=== PATIENT | male | born 1970 | race Two or more races ===

== ENCOUNTER 2016-09-05 13:36 | Emergency (ER) | payer MEDICAID ==
[~2016-09-05] VITALS: Ht 185.4 cm; Wt 120.2 kg
[~2016-09-05 13:36] MED LIST: APIX5TAB; GEMF600T3; INSLANTI; LISI10TA6
[2016-09-05 14:29] LABS: Basophils # (auto) 0 uL; Basophils % (auto) 0.5 % (0.0-2.0); Eosinophils # (auto) 0.1 uL; Eosinophils % (auto) 1.7 % (0.0-7.0); Hematocrit 43.6 % (41.0-53.0); Hemoglobin 14.7 g/dL (13.5-17.5); Lymphocytes # (auto) 1.2 uL; Lymphocytes % (auto) 27.3 % (10.0-50.0); Mean Corpuscular Hemoglobin 30.7 pg (28.0-32.0); Mean Corpuscular Hgb Conc. 33.7 g/dL (32.0-36.0); Mean Corpuscular Volume 91.3 fL (80.0-100.0); Mean Platelet Volume 8.2 fL (7.4-10.4); Monocytes # (auto) 0.3 uL; Monocytes % (auto) 6.9 % (0.0-12.0); Neutrophils # (auto) 2.8 uL; Neutrophils % (auto) 63.6 % (37.0-80.0); Platelet Count (auto) 233 10^3/uL (140-450); White Blood Cell 4.5 10^3/uL (4.4-10.8)
[2016-09-05] MEDS ORDERED: SODIUM CHLORIDE 0.9% 1,000 ML IV ONE (15:11)
[2016-09-05] MEDS ORDERED: SODIUM CHLORIDE 0.9% 1,000 ML IV STA (15:11)
[2016-09-05 15:29] LABS: Potassium 3.7 mmol/L (3.5-5.1)
[2016-09-05 15:30] LABS: Albumin 3.5 g/dL (3.4-5.0); BUN/Creatinine Ratio 10.6; Bilirubin, Total 0.2 mg/dL (0.2-1.0); Calcium 9.1 mg/dL (8.5-10.1); Total Protein 7.3 g/dL (6.4-8.2)
[2016-09-05] MEDS ORDERED: IOHEXOL 350 MG/ML 100ML IJ ONE (15:37)
[2016-09-05 16:12] LABS: Partial Thromboplastin Time 25.2 sec (22.64-33.71); Prothrombin Time 9.6 sec (9.37-12.3)
[2016-09-05 16:24] LABS: INR 0.89 (0.9-1.15)
[2016-09-05 17:17] VITALS: BP 128/70
== END 2016-09-05 17:17 | disposition home or self-care (01) ==
LOC: ER 13:36
DX: I83.92 Asymptomatic varicose veins of left lower extremity (principal); E11.9 Type 2 diabetes mellitus without complications; E78.5 Hyperlipidemia, unspecified; I10 Essential (primary) hypertension; F17.210 Nicotine dependence, cigarettes, uncomplicated; F12.10 Cannabis abuse, uncomplicated; Z88.6 Allergy status to analgesic agent
CPT/HCPCS: 36415; 71275; 80053; 84484; 85025; 85610; 85730; 93971; 96360; 96361; 99285; Q9967

== ENCOUNTER 2016-09-17 13:43 | Emergency (ER) | payer MEDICAID | END 2016-09-17 14:20 | disposition left against medical advice (07) | LOC: ER 13:43 | DX: S90.852A Superficial foreign body, left foot, initial encounter (principal); Z53.21 Procedure and treatment not carried out due to patient leaving prior to being seen by health care provider; W45.8XXA Other foreign body or object entering through skin, initial encounter; Y93.89 Activity, other specified; Y99.8 Other external cause status; Y92.89 Other specified places as the place of occurrence of the external cause ==

== ENCOUNTER 2016-10-20 08:32 | Emergency (ER) | payer MEDICAID ==
[~2016-10-20] VITALS: Ht 188 cm; Wt 120.2 kg
[2016-10-20 09:14] VITALS: BP 135/95
== END 2016-10-20 09:27 | disposition home or self-care (01) ==
LOC: ER 08:32
DX: F41.9 Anxiety disorder, unspecified (principal); J01.10 Acute frontal sinusitis, unspecified; E11.9 Type 2 diabetes mellitus without complications; I10 Essential (primary) hypertension; I82.509 Chronic embolism and thrombosis of unspecified deep veins of unspecified lower extremity; E78.5 Hyperlipidemia, unspecified; F17.210 Nicotine dependence, cigarettes, uncomplicated; F12.10 Cannabis abuse, uncomplicated; Z88.6 Allergy status to analgesic agent; Z79.01 Long term (current) use of anticoagulants; Z79.4 Long term (current) use of insulin

== ENCOUNTER 2017-05-08 11:21 | Emergency (ER) | payer MEDICAID ==
[~2017-05-08] VITALS: Ht 188 cm; Wt 124.7 kg
[2017-05-08 12:00] VITALS: BP 139/95
[2017-05-08 15:04] LABS: Basophils # (auto) 0 uL; Basophils % (auto) 0.6 % (0.0-2.0); Eosinophils # (auto) 0 uL; Hemoglobin 15.1 g/dL (13.5-17.5); Lymphocytes # (auto) 0.6 uL; Lymphocytes % (auto) 11.9 % (10.0-50.0); Mean Corpuscular Hemoglobin 31.4 pg (28.0-32.0); Mean Corpuscular Hgb Conc. 34.3 g/dL (32.0-36.0); Mean Corpuscular Volume 91.6 fL (80.0-100.0); Monocytes # (auto) 0.5 uL; Monocytes % (auto) 9.1 % (0.0-12.0); Neutrophils % (auto) 78.4 % (37.0-80.0); Nucleated Red Blood Cells % 0.4 %; Platelet Count (auto) 159 10^3/uL (140-450); Red Cell Distribution Width 13.2 % (11.8-14.3); White Blood Cell 5.1 10^3/uL (4.4-10.8)
[2017-05-08 15:27] LABS: Alanine Aminotransferase 79 U/L (16-61); Albumin 3.9 g/dL (3.4-5.0); Alkaline Phosphatase 71 U/L (45-117); Anion Gap 11 (5-15); Aspartate Aminotransferase 56 U/L (15-37); BUN/Creatinine Ratio 8.7; Bilirubin, Total 0.4 mg/dL (0.2-1.0); Blood Urea Nitrogen 11 mg/dL (7-18); Calcium 8.5 mg/dL (8.5-10.1); Carbon Dioxide 23 mmol/L (21-32); Chloride 98 mmol/L (98-107); GFR African American 80 mL/min; GFR Non-African American 66 mL/min; Glucose 329 mg/dL (74-106); Potassium 3.8 mmol/L (3.5-5.1); Sodium 132 mmol/L (136-145); Total Protein 8.3 g/dL (6.4-8.2)
== END 2017-05-08 18:22 | disposition left against medical advice (07) ==
LOC: ER 11:21 → EDBD 11:21 → ER 18:22
DX: R11.2 Nausea with vomiting, unspecified (principal); R19.7 Diarrhea, unspecified; Z53.21 Procedure and treatment not carried out due to patient leaving prior to being seen by health care provider
CPT/HCPCS: 36415; 71045; 80053; 84484; 85025; 93005

== ENCOUNTER 2017-12-28 06:54 | Inpatient (IN) | payer MEDICAID ==
[~2017-12-28] VITALS: Ht 167.6 cm; Wt 137.0 kg
[2017-12-28 08:01] LABS: Basophils # (auto) 0 uL; Basophils % (auto) 0.6 % (0.0-2.0); Eosinophils # (auto) 0 uL; Eosinophils % (auto) 0.8 % (0.0-7.0); Hematocrit 44.3 % (41.0-53.0); Hemoglobin 15.4 g/dL (13.5-17.5); Lymphocytes # (auto) 1.1 uL; Lymphocytes % (auto) 21.5 % (10.0-50.0); Mean Corpuscular Hemoglobin 31.6 pg (28.0-32.0); Mean Corpuscular Hgb Conc. 34.8 g/dL (32.0-36.0); Mean Corpuscular Volume 90.9 fL (80.0-100.0); Monocytes # (auto) 0.3 uL; Monocytes % (auto) 5.8 % (0.0-12.0); Neutrophils # (auto) 3.7 uL; Neutrophils % (auto) 71.3 % (37.0-80.0); Nucleated Red Blood Cells % 0.2 %; Platelet Count (auto) 209 10^3/uL (140-450); Red Blood Cells 4.87 10^6/uL (4.5-5.90); Red Cell Distribution Width 12.8 % (11.8-14.3); White Blood Cell 5.2 10^3/uL (4.4-10.8)
[2017-12-28 08:10] LABS: Urine Bacteria NONE SEEN /hpf (None Seen); Urine Blood Negative /uL (Negative); Urine Specific Gravity 1.023 (1.001-1.035); Urine WBC <1 /hpf (0 - 3)
[2017-12-28 08:17] LABS: Alanine Aminotransferase 57 U/L (16-61); Albumin 3.9 g/dL (3.4-5.0); Aspartate Aminotransferase 23 U/L (15-37); BUN/Creatinine Ratio 18.3; Blood Urea Nitrogen 19 mg/dL (7-18); Calcium 9.1 mg/dL (8.5-10.1); Carbon Dioxide 26 mmol/L (21-32); GFR African American 99 mL/min; GFR Non-African American 82 mL/min; Glucose 176 mg/dL (74-106); INR 1.04 (0.9-1.15); Partial Thromboplastin Time 38.3 sec (23.78-33.04); Prothrombin Time 11.1 sec (9.27-12.13)
[2017-12-28] MEDS ORDERED: IOHEXOL 350 MG/ML 100ML IJ ONE (08:19)
[2017-12-28 08:47] LABS: Alkaline Phosphatase 64 U/L (45-117); Anion Gap 10 (5-15); Bilirubin, Total 0.6 mg/dL (0.2-1.0); Chloride 103 mmol/L (98-107); Potassium 4.1 mmol/L (3.5-5.1); Sodium 139 mmol/L (136-145); Total Protein 8.4 g/dL (6.4-8.2)
[2017-12-28] MEDS ORDERED: AZITHROMYCIN 500MG/ 250ML 250 ML IV ONE (09:45)
[2017-12-28] MEDS ORDERED: cefTRIAXone 1GM/10ml IVPUSH 10 ML IV ONE (09:45)
[2017-12-28] MEDS ORDERED: ALBUTEROL SULF 2.5 MG/0.5ML(0.5%) NEB SOLN NEB PRN (10:00)
[2017-12-28] MEDS ORDERED: DEXTROSE (50%) 50ML SYRG IV PRN (10:00)
[2017-12-28] MEDS ORDERED: PROMETHAZINE HCL 25 MG/ML 1ML IV PRN (10:00)
[2017-12-28] MEDS ORDERED: TEMAZEPAM 15 MG CAP PO PRN (10:00)
[2017-12-28] MEDS ORDERED: HYDROcodone-ACET 5/325MG TAB PO PRN (10:00)
[2017-12-28] MEDS ORDERED: NITROGLYCERIN 0.4 MG SL TAB SL PRN (10:00)
[2017-12-28] MEDS ORDERED: APIXABAN 5 MG TAB PO SCH (10:00)
[2017-12-28] MEDS ORDERED: LORazepam 0.5 MG TAB PO PRN (10:00)
[2017-12-28] MEDS ORDERED: ACETAMINOPHEN 500 MG TAB PO PRN (10:00)
[2017-12-28] MEDS ORDERED: INSUINJ18 SC ×2 (10:49→10:54)
[2017-12-28] MEDS ORDERED: LISI2.5T47 PO (10:49)
[2017-12-28] MEDS ORDERED: INSLANTI SC (10:54)
[2017-12-28] MEDS ORDERED: OXYC-113 PO ×2 (10:54→10:55)
[2017-12-28] MEDS: SODIUM CHLORIDE 0.9% 1,000 ML IV SCH (11:03)
[2017-12-28] MEDS: ACCU-CHEK COMFORT CURVE STRIP VI SCH ×3 (11:19→21:54)
[2017-12-28] MEDS: LISINOPRIL 10 MG TAB PO SCH (11:29)
[2017-12-28] MEDS: InsuLIN REG 1unit/0.01ml Soln (100units/ml) SC SCH ×3 (11:29→22:03)
[2017-12-28] MEDS: PANTOPRAZOLE 40 MG TAB PO SCH (11:30)
[2017-12-28] MEDS: INSULIN LANTUS (GLARGINE) 1 /0.01ml (100units/ml) SC SCH ×2 (11:30→22:03)
[2017-12-28] MEDS: GEMFIBROZIL 600 MG TAB PO SCH ×2 (11:33→21:32)
[2017-12-28] MEDS: OXYCODONE W/ ACETAMINOPHEN 5/325MG TABLET PO PRN ×2 (12:18→20:18)
[2017-12-28] MEDS: ALBUTEROL SULF 2.5 MG/0.5ML(0.5%) NEB SOLN NEB SCH ×2 (12:20→19:03)
[2017-12-28] MEDS: IPRATROPIUM BROM 0.5 MG/2.5ML INH SOL NEB SCH ×2 (12:20→19:03)
[2017-12-28 12:40] VITALS: BP 135/86
[2017-12-28 14:38] VITALS: BP 136/99
[2017-12-28 17:00] VITALS: BP 115/69
[2017-12-28] MEDS: RIVAROXABAN 20 MG TAB PO SCH (17:10)
[2017-12-28 21:48] VITALS: BP 105/59
[2017-12-29] MEDS: SODIUM CHLORIDE 0.9% 1,000 ML IV SCH ×3 (00:06→15:30)
[2017-12-29] MEDS: ALBUTEROL SULF 2.5 MG/0.5ML(0.5%) NEB SOLN NEB SCH ×4 (00:27→19:56)
[2017-12-29] MEDS: IPRATROPIUM BROM 0.5 MG/2.5ML INH SOL NEB SCH ×4 (00:27→19:56)
[2017-12-29 04:52] VITALS: BP 117/76
[2017-12-29] MEDS: OXYCODONE W/ ACETAMINOPHEN 5/325MG TABLET PO PRN ×3 (06:05→22:14)
[2017-12-29] MEDS: ACCU-CHEK COMFORT CURVE STRIP VI SCH ×4 (06:14→22:07)
[2017-12-29] MEDS: InsuLIN REG 1unit/0.01ml Soln (100units/ml) SC SCH ×4 (06:14→22:06)
[2017-12-29 08:58] VITALS: BP 133/75
[2017-12-29] MEDS: cefTRIAXone 1GM/10ml IVPUSH 10 ML IV SCH (09:27)
[2017-12-29] MEDS: PANTOPRAZOLE 40 MG TAB PO SCH (09:28)
[2017-12-29] MEDS: AZITHROMYCIN 500MG/ 250ML 250 ML IV SCH (09:28)
[2017-12-29] MEDS: GEMFIBROZIL 600 MG TAB PO SCH ×2 (09:28→22:06)
[2017-12-29] MEDS: LISINOPRIL 10 MG TAB PO SCH (09:29)
[2017-12-29] MEDS: INSULIN LANTUS (GLARGINE) 1 /0.01ml (100units/ml) SC SCH ×2 (09:29→22:06)
[2017-12-29 11:15] LABS: Basophils # (auto) 0 uL; Basophils % (auto) 0.5 % (0.0-2.0); Eosinophils # (auto) 0 uL; Hematocrit 40.8 % (41.0-53.0); Lymphocytes % (auto) 23.5 % (10.0-50.0); Mean Corpuscular Hemoglobin 31.4 pg (28.0-32.0); Mean Corpuscular Hgb Conc. 34.2 g/dL (32.0-36.0); Mean Corpuscular Volume 91.8 fL (80.0-100.0); Monocytes # (auto) 0.3 uL; Monocytes % (auto) 6.9 % (0.0-12.0); Neutrophils % (auto) 68.1 % (37.0-80.0); Nucleated Red Blood Cells % 0.1 %; Platelet Count (auto) 180 10^3/uL (140-450); Red Blood Cells 4.45 10^6/uL (4.5-5.90); Red Cell Distribution Width 12.9 % (11.8-14.3); White Blood Cell 4.5 10^3/uL (4.4-10.8)
[2017-12-29 11:27] LABS: BUN/Creatinine Ratio 19.5; Calcium 8.2 mg/dL (8.5-10.1); Potassium 3.8 mmol/L (3.5-5.1)
[2017-12-29 12:20] VITALS: BP 119/76
[2017-12-29 16:53] VITALS: BP 133/76
[2017-12-29] MEDS: RIVAROXABAN 20 MG TAB PO SCH (17:53)
[2017-12-29 22:00] VITALS: BP 118/79
[2017-12-30] MEDS: ALBUTEROL SULF 2.5 MG/0.5ML(0.5%) NEB SOLN NEB SCH ×3 (00:22→11:42)
[2017-12-30] MEDS: IPRATROPIUM BROM 0.5 MG/2.5ML INH SOL NEB SCH ×3 (00:22→11:41)
[2017-12-30 04:15] LABS: BUN/Creatinine Ratio 16.5; Calcium 8.3 mg/dL (8.5-10.1); Magnesium 2.2 mg/dL (1.6-2.6); Potassium 3.9 mmol/L (3.5-5.1)
[2017-12-30 05:26] VITALS: BP 121/56
[2017-12-30] MEDS: ACCU-CHEK COMFORT CURVE STRIP VI SCH ×3 (07:00→17:46)
[2017-12-30] MEDS: InsuLIN REG 1unit/0.01ml Soln (100units/ml) SC SCH ×3 (07:41→17:47)
[2017-12-30] MEDS: OXYCODONE W/ ACETAMINOPHEN 5/325MG TABLET PO PRN (08:02)
[2017-12-30] MEDS: cefTRIAXone 1GM/10ml IVPUSH 10 ML IV SCH (08:02)
[2017-12-30] MEDS: SODIUM CHLORIDE 0.9% 1,000 ML IV SCH (08:06)
[2017-12-30 09:00] VITALS: BP 144/77
[2017-12-30] MEDS: AZITHROMYCIN 500MG/ 250ML 250 ML IV SCH (10:18)
[2017-12-30] MEDS: PANTOPRAZOLE 40 MG TAB PO SCH (10:19)
[2017-12-30] MEDS: GEMFIBROZIL 600 MG TAB PO SCH (10:19)
[2017-12-30] MEDS: LISINOPRIL 10 MG TAB PO SCH (10:19)
[2017-12-30] MEDS: INSULIN LANTUS (GLARGINE) 1 /0.01ml (100units/ml) SC SCH (10:24)
[2017-12-30 13:00] VITALS: BP 142/63
[2017-12-30 17:00] VITALS: BP 141/98
[2017-12-30] MEDS: RIVAROXABAN 20 MG TAB PO SCH (17:49)
[2017-12-30 17:57] VITALS: BP 141/86
== END 2017-12-30 18:40 | disposition home or self-care (01) | DRG 139 ==
LOC: ER 06:56 → TELE 06:57 → TELE-CENTR 15:05
PROVIDERS: ADMIT Internal Medicine; ATTEND Internal Medicine
DX: J18.9 Pneumonia, unspecified organism (principal); E66.01 Morbid (severe) obesity due to excess calories; K76.0 Fatty (change of) liver, not elsewhere classified; E78.5 Hyperlipidemia, unspecified; F17.210 Nicotine dependence, cigarettes, uncomplicated; G89.4 Chronic pain syndrome; I10 Essential (primary) hypertension; E11.9 Type 2 diabetes mellitus without complications; I83.10 Varicose veins of unspecified lower extremity with inflammation; R16.0 Hepatomegaly, not elsewhere classified; K57.30 Diverticulosis of large intestine without perforation or abscess without bleeding; Z82.49 Family history of ischemic heart disease and other diseases of the circulatory system; Z83.3 Family history of diabetes mellitus; Z86.718 Personal history of other venous thrombosis and embolism; Z88.5 Allergy status to narcotic agent; Z68.42 Body mass index [BMI] 45.0-49.9, adult
CPT/HCPCS: 36415; 71045; 71260; 74177; 80048; 80053; 80061; 81001; 82962; 83036; 83735; 83880; 84484; 85025; 85610; 85730; 87040; 87081; 93005; 93971; 94640; 96365; 96375; J0696; J1815

== ENCOUNTER 2018-06-05 07:11 | Emergency (ER) | payer MEDICAID ==
[~2018-06-05] VITALS: Ht 188 cm; Wt 124.7 kg
[~2018-06-05 07:11] MED LIST changes: -APIX5TAB; -GEMF600T3; +GEMF600T7; +INSLANTI SC
[2018-06-05] MEDS ORDERED: KETOROLAC TROMETH 60MG/2ML VIAL IM ONE (07:45)
[2018-06-05 08:04] VITALS: BP 164/107
[2018-06-05 08:27] LABS: Basophils # (auto) 0 uL; Basophils % (auto) 0.5 % (0.0-2.0); Eosinophils # (auto) 0 uL; Eosinophils % (auto) 0.5 % (0.0-7.0); Hematocrit 48.2 % (41.0-53.0); Hemoglobin 16.6 g/dL (13.5-17.5); Lymphocytes # (auto) 1.1 uL; Lymphocytes % (auto) 20.4 % (10.0-50.0); Mean Corpuscular Hgb Conc. 34.5 g/dL (32.0-36.0); Mean Corpuscular Volume 89.9 fL (80.0-100.0); Monocytes # (auto) 0.4 uL; Monocytes % (auto) 7.1 % (0.0-12.0); Neutrophils # (auto) 3.7 uL; Neutrophils % (auto) 71.5 % (37.0-80.0); Nucleated Red Blood Cells % 0.1 %; Platelet Count (auto) 240 10^3/uL (140-450); Red Blood Cells 5.35 10^6/uL (4.5-5.90); Red Cell Distribution Width 13.3 % (11.8-14.3); White Blood Cell 5.2 10^3/uL (4.4-10.8)
[2018-06-05 08:37] LABS: Amphetamine Screen, Urine POSITIVE (NEGATIVE); Barbiturate Scree,Urine NEGATIVE (NEGATIVE); Benzodiazephine Screen, Urine NEGATIVE (NEGATIVE); Cannabinoid Screen, Urine POSITIVE (NEGATIVE); Cocaine Screen, Urine NEGATIVE (NEGATIVE); Opiate Scree,Urine NEGATIVE (NEGATIVE); Phencyclidine Screen, Urine NEGATIVE (NEGATIVE)
[2018-06-05 08:46] LABS: Albumin 4.5 g/dL (3.4-5.0); Anion Gap 7 (5-15); Blood Urea Nitrogen 22 mg/dL (7-18); Calcium 9.1 mg/dL (8.5-10.1); Carbon Dioxide 23 mmol/L (21-32); Chloride 106 mmol/L (98-107); Glucose 206 mg/dL (74-106); Magnesium 2.3 mg/dL (1.6-2.6); Potassium 3.7 mmol/L (3.5-5.1); Sodium 136 mmol/L (136-145)
[2018-06-05 08:51] LABS: Alanine Aminotransferase 33 U/L (16-61); Alkaline Phosphatase 66 U/L (45-117); Aspartate Aminotransferase 27 U/L (15-37); BUN/Creatinine Ratio 21.8; Bilirubin, Total 0.9 mg/dL (0.2-1.0); GFR African American 102 mL/min; GFR Non-African American 85 mL/min; Total Protein 8.4 g/dL (6.4-8.2)
[2018-06-05 09:48] LABS: INR 1.16 (0.9-1.15); Partial Thromboplastin Time 37.1 sec (23.78-33.04); Prothrombin Time 12.3 sec (9.27-12.13)
== END 2018-06-05 09:22 | disposition home or self-care (01) ==
LOC: ER 07:11
DX: R07.9 Chest pain, unspecified (principal); R51 Headache; G89.4 Chronic pain syndrome; F15.10 Other stimulant abuse, uncomplicated; F12.10 Cannabis abuse, uncomplicated; E11.9 Type 2 diabetes mellitus without complications; E78.5 Hyperlipidemia, unspecified; I10 Essential (primary) hypertension; F17.210 Nicotine dependence, cigarettes, uncomplicated; Z88.6 Allergy status to analgesic agent
CPT/HCPCS: 36415; 71046; 80053; 80307; 83735; 83880; 84484; 85025; 85610; 85730; 93005; 96372; 99284; J1885

== ENCOUNTER 2022-06-27 05:29 | Emergency (ER) | payer MEDICAID ==
[~2022-06-27] VITALS: Ht 185.4 cm; Wt 129.5 kg
[~2022-06-27 05:29] MED LIST changes: +GEMF-19; -GEMF600T7; +LISI-716; -LISI10TA6
[2022-06-27] MEDS ORDERED: HYDROcodone-ACET 5/325MG TAB PO ONE ×2 (07:15→09:00)
[2022-06-27] MEDS ORDERED: CYCL-839 PO (09:02)
[2022-06-27] MEDS ORDERED: LIDO5DIS21 TOP (09:03)
[2022-06-27 09:41] VITALS: BP 160/90
== END 2022-06-27 09:43 | disposition home or self-care (01) ==
LOC: ER 05:29
DX: G89.29 Other chronic pain (principal); M54.50 Low back pain, unspecified; E11.9 Type 2 diabetes mellitus without complications; E78.5 Hyperlipidemia, unspecified; I10 Essential (primary) hypertension; F12.10 Cannabis abuse, uncomplicated; F17.210 Nicotine dependence, cigarettes, uncomplicated
CPT/HCPCS: 72100

== ENCOUNTER 2023-05-02 08:05 | Inpatient (IN) | payer MEDICAID ==
[~2023-05-02] VITALS: Ht 188 cm; Wt 144.5 kg
[~2023-05-02 08:05] MED LIST changes: +CYCL-839 PO; -GEMF-19; +GEMF-66; +LIDO5DIS21 TOP; -LISI-716; +LISI10TA34
[2023-05-02 08:49] LABS: Basophils # (auto) 0 10 ^3/uL (0-0.2); Basophils % (auto) 0.4 % (0.0-2.0); Eosinophils # (auto) 0 10 ^3/uL (0-0.8); Eosinophils % (auto) 0.8 % (0.0-7.0); Hematocrit 41.6 % (41.0-53.0); Hemoglobin 14.6 g/dL (13.5-17.5); Lymphocytes % (auto) 18.2 % (10.0-50.0); Mean Corpuscular Hemoglobin 31.6 pg (28.0-32.0); Mean Corpuscular Hgb Conc. 35.1 g/dL (32.0-36.0); Mean Corpuscular Volume 90.1 fL (80.0-100.0); Monocytes # (auto) 0.3 10 ^3/uL (0-1.3); Monocytes % (auto) 5.6 % (0.0-12.0); Neutrophils # (auto) 4.2 10 ^3/uL (1.6-8.6); Nucleated Red Blood Cells % 0.1 %; Red Blood Cells 4.62 10^6/uL (4.5-5.90); Red Cell Distribution Width 13.2 % (11.8-14.3); White Blood Cell 5.6 10^3/uL (4.4-10.8)
[2023-05-02 09:04] LABS: Alanine Aminotransferase 36 U/L (7-40); Albumin 4.8 g/dL (3.2-4.8); Alkaline Phosphatase 65 U/L (46-116); Anion Gap 7 (5-15); Blood Urea Nitrogen 10 mg/dL (9-23); Calcium 9.7 mg/dL (8.5-10.1); Carbon Dioxide 28 mmol/L (20-30); Chloride 103 mmol/L (98-107); Glucose 199 mg/dL (74-106); Sodium 138 mmol/L (136-145)
[2023-05-02 09:05] LABS: Bilirubin, Total 0.6 mg/dL (0.2-1.0); Total Protein 7.1 g/dL (5.7-8.2)
[2023-05-02 09:08] LABS: Aspartate Aminotransferase 23 U/L (13-40)
[2023-05-02 09:15] LABS: INR 0.94 (0.9-1.15); Prothrombin Time 9.9 sec (9.3-11.8)
[2023-05-02 09:34] LABS: Urine Bacteria NONE SEEN /hpf (None Seen); Urine Blood Negative /uL (Negative); Urine Clarity Clear (Clear); Urine Color Yellow (Yellow); Urine Protein, UAD TRACE (Negative); Urine Specific Gravity 1.019 (1.001-1.035); Urine Urobilinogen Normal (Negative); Urine WBC 1 /hpf (0 - 3)
[2023-05-02] MEDS ORDERED: DOCUSATE SOD 100 MG CAP PO PRN (16:30)
[2023-05-02] MEDS ORDERED: HEPARIN SODIUM (PORCINE) 5000 UNITS/ML 1ML VIAL IV ONE ×2 (16:30→17:15)
[2023-05-02] MEDS ORDERED: HEPARIN DRIP/D5W 100UNITS/ML 250 ML IV SCH ×2 (16:30→17:15)
[2023-05-02 17:00] LABS: Basophils # (auto) 0 10 ^3/uL (0-0.2); Basophils % (auto) 0.7 % (0.0-2.0); Eosinophils # (auto) 0.1 10 ^3/uL (0-0.8); Eosinophils % (auto) 1.1 % (0.0-7.0); Hemoglobin 14.1 g/dL (13.5-17.5); Lymphocytes # (auto) 1.5 10 ^3/uL (0.4-5.4); Lymphocytes % (auto) 27.9 % (10.0-50.0); Mean Corpuscular Hemoglobin 30.8 pg (28.0-32.0); Mean Corpuscular Hgb Conc. 34.4 g/dL (32.0-36.0); Mean Corpuscular Volume 89.3 fL (80.0-100.0); Monocytes # (auto) 0.3 10 ^3/uL (0-1.3); Monocytes % (auto) 5.9 % (0.0-12.0); Neutrophils # (auto) 3.4 10 ^3/uL (1.6-8.6); Neutrophils % (auto) 64.4 % (37.0-80.0); Nucleated Red Blood Cells % 0.3 %; Red Blood Cells 4.59 10^6/uL (4.5-5.90); Red Cell Distribution Width 13.6 % (11.8-14.3); White Blood Cell 5.3 10^3/uL (4.4-10.8)
[2023-05-02 17:21] LABS: INR 0.96 (0.9-1.15); Partial Thromboplastin Time 28.7 SEC (24.5-34.5); Prothrombin Time 10.1 sec (9.3-11.8)
[2023-05-02] MEDS: HYDROmorphone HCL 2 MG/ML VL/or syr IV PRN (20:48)
[2023-05-02] MEDS: ONDANSETRON HCL 4 MG/2 ML VIAL IV PRN (20:48)
[2023-05-03] VITALS (8 sets, daily range): BP systolic 102–137; BP diastolic 65–85; PULSE 63–80; RESP 16–20; TEMP 97.7–98.5; O2SAT 96–98
[2023-05-03] MEDS: CYCLOBENZAPRINE HCL 10 MG TAB PO SCH ×4 (00:06→22:19)
[2023-05-03] MEDS: HYDROmorphone HCL 2 MG/ML VL/or syr IV PRN ×4 (01:43→22:39)
[2023-05-03] MEDS: ONDANSETRON HCL 4 MG/2 ML VIAL IV PRN ×2 (01:44→22:27)
[2023-05-03 08:29] LABS: Basophils # (auto) 0 10 ^3/uL (0-0.2); Basophils % (auto) 0.5 % (0.0-2.0); Eosinophils # (auto) 0.1 10 ^3/uL (0-0.8); Eosinophils % (auto) 1.5 % (0.0-7.0); Hematocrit 37.2 % (41.0-53.0); Hemoglobin 12.6 g/dL (13.5-17.5); Lymphocytes % (auto) 27.4 % (10.0-50.0); Mean Corpuscular Hemoglobin 30.7 pg (28.0-32.0); Mean Corpuscular Hgb Conc. 33.9 g/dL (32.0-36.0); Mean Corpuscular Volume 90.5 fL (80.0-100.0); Monocytes # (auto) 0.2 10 ^3/uL (0-1.3); Monocytes % (auto) 6.1 % (0.0-12.0); Neutrophils # (auto) 2.4 10 ^3/uL (1.6-8.6); Neutrophils % (auto) 64.5 % (37.0-80.0); Red Blood Cells 4.11 10^6/uL (4.5-5.90); Red Cell Distribution Width 13.4 % (11.8-14.3); White Blood Cell 3.7 10^3/uL (4.4-10.8)
[2023-05-03 08:52] LABS: Partial Thromboplastin Time 44.2 SEC (24.5-34.5); Prothrombin Time 10.5 sec (9.3-11.8)
[2023-05-03 08:56] LABS: Alanine Aminotransferase 35 U/L (7-40); Alkaline Phosphatase 54 U/L (46-116); Anion Gap 6 (5-15); Aspartate Aminotransferase 27 U/L (13-40); BUN/Creatinine Ratio 11.5 (10.0-20.0); Blood Urea Nitrogen 11 mg/dL (9-23); Carbon Dioxide 28 mmol/L (20-30); Chloride 105 mmol/L (98-107); Glucose 194 mg/dL (74-106); Potassium 4.1 mmol/L (3.5-5.1); Sodium 139 mmol/L (136-145)
[2023-05-03 08:57] LABS: Bilirubin, Total 0.5 mg/dL (0.2-1.0); Total Protein 6.1 g/dL (5.7-8.2)
[2023-05-03] MEDS ORDERED: HEPARIN DRIP/D5W 100UNITS/ML 250 ML IV SCH (09:00)
[2023-05-03] MEDS ORDERED: GEMFIBROZIL 600 MG TAB PO SCH (10:00)
[2023-05-03] MEDS: LISINOPRIL 10 MG TAB PO SCH (12:31)
[2023-05-03] MEDS ORDERED: DEXTROSE (50%) 50ML SYRG IV PRN (13:30)
[2023-05-03] MEDS: InsuLIN REG 1unit/0.01ml Soln (100units/ml) SC SCH ×2 (17:00→22:27)
[2023-05-03] MEDS: ACCU-CHEK COMFORT CURVE STRIP VI SCH ×2 (18:03→22:22)
[2023-05-03] MEDS ORDERED: INSULIN LANTUS (GLARGINE) 1 /0.01ml (100units/ml) SC SCH (22:00)
[2023-05-03] MEDS: APIXABAN 5 MG TAB PO SCH (22:21)
[2023-05-03] MEDS: GEMFIBROZIL 600 MG TAB PO SCH (22:21)
[2023-05-04 04:51] VITALS: BP 115/68; PULSE 86; RESP 18; TEMP 97.9; O2SAT 97
[2023-05-04] MEDS: CYCLOBENZAPRINE HCL 10 MG TAB PO SCH (05:33)
[2023-05-04] MEDS: HYDROmorphone HCL 2 MG/ML VL/or syr IV PRN ×2 (05:34→10:13)
[2023-05-04] MEDS: InsuLIN REG 1unit/0.01ml Soln (100units/ml) SC SCH ×2 (05:46→10:20)
[2023-05-04] MEDS: ACCU-CHEK COMFORT CURVE STRIP VI SCH ×2 (06:25→10:20)
[2023-05-04 08:00] VITALS: PULSE 80; RESP 20; O2SAT 94
[2023-05-04 08:30] VITALS: BP 117/66; PULSE 80; RESP 20; TEMP 97.9; O2SAT 94
[2023-05-04] MEDS: APIXABAN 5 MG TAB PO SCH (10:06)
[2023-05-04] MEDS: LISINOPRIL 10 MG TAB PO SCH (10:06)
[2023-05-04] MEDS: GEMFIBROZIL 600 MG TAB PO SCH (10:07)
[2023-05-04] MEDS ORDERED: APIX5TAB PO (12:59)
[2023-05-04 13:06] VITALS: BP 117/66; PULSE 80; RESP 20; TEMP 97.9; O2SAT 94
[2023-05-10] MEDS ORDERED: APIXABAN 5 MG TAB PO SCH (22:00)
== END 2023-05-04 13:58 | disposition home or self-care (01) | DRG 197 ==
LOC: ER 08:05 → OVERFLOW 16:30 → WEST WING 23:48
PROVIDERS: ADMIT Nurse Practitioner Family; ATTEND Internal Medicine
DX: I82.412 Acute embolism and thrombosis of left femoral vein (principal); E11.65 Type 2 diabetes mellitus with hyperglycemia; I10 Essential (primary) hypertension; E78.1 Pure hyperglyceridemia; E66.01 Morbid (severe) obesity due to excess calories; F17.210 Nicotine dependence, cigarettes, uncomplicated; Z68.41 Body mass index [BMI] 40.0-44.9, adult; Z88.6 Allergy status to analgesic agent; Z79.01 Long term (current) use of anticoagulants; Z82.49 Family history of ischemic heart disease and other diseases of the circulatory system; Z83.3 Family history of diabetes mellitus; Z86.718 Personal history of other venous thrombosis and embolism; Z91.199 Patient's noncompliance with other medical treatment and regimen due to unspecified reason
CPT/HCPCS: 36415; 80053; 81001; 82962; 85025; 85610; 85730; 87081; 87086; 93971; 99291; G0378; J1815; J2405

== ENCOUNTER 2023-08-07 11:54 | Inpatient (IN) | payer MEDICAID ==
[~2023-08-07] VITALS: Ht 188 cm; Wt 137.0 kg
[~2023-08-07 11:54] MED LIST changes: +APIX5TAB PO
[2023-08-07 12:25] LABS: Basophils # (auto) 0 10 ^3/uL (0-0.2); Basophils % (auto) 0.6 % (0.0-2.0); Eosinophils # (auto) 0 10 ^3/uL (0-0.8); Eosinophils % (auto) 0.7 % (0.0-7.0); Hematocrit 42.7 % (41.0-53.0); Hemoglobin 14.6 g/dL (13.5-17.5); Lymphocytes # (auto) 1.2 10 ^3/uL (0.4-5.4); Lymphocytes % (auto) 23.2 % (10.0-50.0); Mean Corpuscular Hemoglobin 31.3 pg (28.0-32.0); Mean Corpuscular Hgb Conc. 34.1 g/dL (32.0-36.0); Mean Corpuscular Volume 91.6 fL (80.0-100.0); Monocytes # (auto) 0.3 10 ^3/uL (0-1.3); Monocytes % (auto) 6.5 % (0.0-12.0); Neutrophils # (auto) 3.6 10 ^3/uL (1.6-8.6); Nucleated Red Blood Cells % 0.2 %; Red Blood Cells 4.66 10^6/uL (4.5-5.90); Red Cell Distribution Width 13.3 % (11.8-14.3); White Blood Cell 5.2 10^3/uL (4.4-10.8)
[2023-08-07 12:40] LABS: INR 0.96 (0.9-1.15); Partial Thromboplastin Time 29.6 SEC (24.5-34.5); Prothrombin Time 10.1 sec (9.3-11.8)
[2023-08-07 12:48] LABS: Alanine Aminotransferase 43 U/L (7-40); Albumin 4.7 g/dL (3.2-4.8); Alkaline Phosphatase 61 U/L (46-116); Anion Gap 6 (5-15); Aspartate Aminotransferase 26 U/L (13-40); BUN/Creatinine Ratio 19.6 (10.0-20.0); Bilirubin, Total 0.3 mg/dL (0.2-1.0); Blood Urea Nitrogen 19 mg/dL (9-23); Calcium 10.2 mg/dL (8.7-10.4); Carbon Dioxide 28 mmol/L (20-30); Chloride 106 mmol/L (98-107); Glucose 174 mg/dL (74-106); Magnesium 1.8 mg/dL (1.6-2.6); Potassium 4.3 mmol/L (3.5-5.1); Sodium 140 mmol/L (136-145)
[2023-08-07] MEDS ORDERED: ONDANSETRON HCL 4 MG/2 ML VIAL IV PRN (17:15)
[2023-08-07] MEDS ORDERED: NITROGLYCERIN 0.4 MG SL TAB SL PRN (17:15)
[2023-08-07] MEDS: IOHEXOL 350 MG/ML 100ML IJ ONE (17:15)
[2023-08-07] MEDS ORDERED: ACETAMINOPHEN 325 MG TAB PO PRN (17:15)
[2023-08-07] MEDS: HYDROmorphone HCL 2 MG/ML VL/or syr IV ONE (19:24)
[2023-08-07 19:46] LABS: INR 0.99 (0.9-1.15); Prothrombin Time 10.4 sec (9.3-11.8)
[2023-08-07] MEDS: APIXABAN 5 MG TAB PO SCH (22:06)
[2023-08-07] MEDS: ATORVASTATIN 20 MG TAB PO SCH (22:06)
[2023-08-07 23:24] VITALS: TEMP 97.6
[2023-08-08 01:00] VITALS: BP 114/68; PULSE 75; RESP 18; TEMP 97.6; O2SAT 93
[2023-08-08] MEDS ORDERED: PERCOT PO (02:43)
[2023-08-08 05:00] VITALS: BP 141/84; PULSE 74; RESP 19; TEMP 97.9; O2SAT 94
[2023-08-08 07:59] VITALS: O2SAT 98
[2023-08-08 08:45] VITALS: BP 133/70; PULSE 69; RESP 18; TEMP 98.4; O2SAT 96
[2023-08-08] MEDS: ASPirin 81 mg TAB PO SCH (09:44)
[2023-08-08] MEDS: LISINOPRIL 5 MG TAB PO SCH (09:44)
[2023-08-08] MEDS: DOCUSATE SOD 100 MG CAP PO SCH (09:44)
== END 2023-08-08 10:15 | disposition left against medical advice (07) | DRG 199 ==
LOC: ER 11:54 → TELE 18:19 → TELE-WESTW 23:16
PROVIDERS: ADMIT Nurse Practitioner Family; ATTEND Nurse Practitioner Family
DX: I16.0 Hypertensive urgency (principal); I24.9 Acute ischemic heart disease, unspecified; I82.512 Chronic embolism and thrombosis of left femoral vein; R07.89 Other chest pain; E11.65 Type 2 diabetes mellitus with hyperglycemia; E66.01 Morbid (severe) obesity due to excess calories; Z53.29 Procedure and treatment not carried out because of patient's decision for other reasons; G89.29 Other chronic pain; I82.532 Chronic embolism and thrombosis of left popliteal vein; E78.5 Hyperlipidemia, unspecified; F17.210 Nicotine dependence, cigarettes, uncomplicated; Z82.49 Family history of ischemic heart disease and other diseases of the circulatory system; Z68.38 Body mass index [BMI] 38.0-38.9, adult; Z83.3 Family history of diabetes mellitus
CPT/HCPCS: 36415; 71046; 71275; 80053; 83735; 84484; 85025; 85379; 85610; 85730; 93005; 93971; G0378

== ENCOUNTER 2024-04-10 06:34 | Emergency (ER) | payer MEDICAID ==
[~2024-04-10] VITALS: Ht 188 cm; Wt 135.0 kg
[~2024-04-10 06:34] MED LIST changes: -CYCL-839 PO; +PERCOT PO
[2024-04-10 07:25] VITALS: BP 164/112; PULSE 105; RESP 20; TEMP 98; O2SAT 99
== END 2024-04-10 08:37 | disposition left against medical advice (07) ==
LOC: ER 06:34
DX: M79.662 Pain in left lower leg (principal); Z53.21 Procedure and treatment not carried out due to patient leaving prior to being seen by health care provider

== ENCOUNTER 2024-08-13 07:13 | Inpatient (IN) | payer MEDICAID ==
[~2024-08-13] VITALS: Ht 188 cm; Wt 127.0 kg
[2024-08-13] VITALS (10 sets, daily range): BP systolic 98–129; BP diastolic 63–81; PULSE 63–79; RESP 14–17; TEMP 97.7–98.1; O2SAT 94–98
--- NOTE | 2024-08-13 08:04 | ED.PDOC ---
Musculoskeletal HPI Comments 54 year old male presents to the ED with a chief complaint of bilateral leg pain onset 3 days. Patient states he began experiencing bilateral leg pain 3 days ago, worsen this morning. He takes Percocet for pain, has slight improvement of symptoms. Noticed LT calf is swollen, tender to touch and warm. Patient describes pain as a cramping sensation. PMHx HTN, DM, HLD. Denies chest pain, fevers, chills, shortness of breath, nausea, vomiting, diarrhea, dizziness, headache. No other symptoms or modifying factors present at this time. Chief Complaint: Lower Extremity Time Seen by MD: 07:43 Primary Care Provider: REMEDIOS Hurst Notes: Medications, Allergies Allergies: Coded Allergies: Morphine (Verified Allergy, Severe, 09/05/16) Home Meds Active Scripts Apixaban Base (ELIQUIS) 5 Mg Tab, 10 MG PO BID for 7 Days, #14 TAB 10MG BID X 7 DAYS THEN 5MG PO BID FOR AT LEAST 6 MONTHS FOR DVT/PE TREATMENT Prov:CATHY RUSH MD 05/04/23 Apixaban Base (ELIQUIS) 5 Mg Tab, 5 MG PO BID for 30 Days, #60 TAB 2 Refills Prov:CATHY RUSH MD 05/04/23 Lidocaine (LIDODERM 5% TOPICAL PATCH) 1 Patch Ph, 1 PATCH TOP DAILY PRN, #30 PATCH 1 Refill Prov:JADE ORTEGA [facility] 06/27/22 Reported Medications Oxycodone W/ Acetaminophen (Percocet 5/325MG) 1 Tab Tb, 2 TAB PO QID, #120 TAB 08/08/23 Insulin Glargine (Lantus) 100 Unit/Ml Inj, 38 UNIT SC BID, INJ 12/28/17 Gemfibrozil (Gemfibrozil) 600 Mg Tab, #60 11/26/15 Lisinopril (Lisinopril) 10 Mg Tab, #30 11/26/15 Insulin Glargine (Lantus) 100 Units/Ml Vial, #10 11/26/15 Information Source: Patient Mode of Arrival: Ambulatory Location: Bilateral Extremity Location: Calf, Leg Timing: Days Prehospital treatment: Pain Meds Severity: Moderate Able to Move Extremity: Yes Bear Weight: Limited Pain: Moderate Mechanism: Spontaneous Circumstances: Spontaneous Onset of Symptoms: Spontaneous Symptoms: Swelling, Pain DVT Risk Factors: NONE Associated signs and symptoms: Swelling (LT calf), Leg pain (bilateral) Past Medical History PAST MEDICAL HISTORY: DM, High Lipids, HTN Family History Family History: Family hx of DM, Family hx of HTN Social History Smoker: Cigarettes, Less Than 1 Pack/Day Alcohol: Occasionally Drugs: Marijuana Lives In: Home Constitutional: denies: chills, diaphoresis, fatigue, fever, malaise, sweats, weakness, others EENTM: denies: blurred vision, double vision, ear bleeding, ear discharge, ear drainage, ear pain, ear ringing, eye pain, eye redness, hearing loss, mouth pain, mouth swelling, nasal discharge, nose bleeding, nose congestion, nose pain, photophobia, tearing, throat pain, throat swelling, voice changes, others Respiratory: denies: cough, hemoptysis, orthopnea, SOB at rest, shortness of breath, SOB with excertion, stridor, wheezing, others Cardiovascular: denies: chest pain, dizzy spells, diaphoresis, Dyspnea on exertion, edema, irregular heart beat, left arm pain, lightheadedness, palpitations, PND, syncope, others Gastrointestinal: denies: abdomen distended, abdominal pain, blood streaked bowels, constipated, diarrhea, dysphagia, difficulty swallowing, hematemesis, melena, nausea, poor appetite, poor fluid intake, rectal bleeding, rectal pain, vomiting, others Genitourinary: denies: burning, dysuria, flank pain, frequency, hematuria, incontinence, penile discharge, penile sore, pain, testicle pain, testicle swelling, urgency, others Neurological: denies: dizziness, fainting, headache, left sided numbness, left sided weakness, numbness, paresthesia, pre-existing deficit, right sided numbness, right sided weakness, seizure, speech problems, tingling, tremors, weakness, others Musculoskeletal: reports: others (bilateral leg pain, LT calf swelling ); denies: back pain, gout, joint pain, joint swelling, muscle pain, muscle stiffness, neck pain Integumetry: denies: bruises, change in color, change in hair/nails, dryness, laceration, lesions, lumps, rash, wounds, others Allergic/Immunocompromised: denies: Difficulty Healing, Frequent Infections, Hives, Itching, others Hematologic/Lymphatic: denies: anemia, blood clots, easy bleeding, easy bruising, swollen glands, others Endocrine: denies: excessive hunger, excessive sweating, excessive thirst, excessive urination, flushing, intolerance to cold, intolerance to heat, unexplained weight gain, unexplained weight loss, others Psychiatric: denies: anxiety, bipolar disorder, depression, hopeless, panic disorder, schizophrenia, sleepless, suicidal, others All Other Systems: Reviewed and Negative Physical Exam General Appearance: No Apparent Distress, Normal HEENT: Normal ENT Inspection, Pharynx Normal, TMs Normal Neck: Full Range of Motion, Non-Tender, Normal, Normal Inspection Respiratory: Chest Non-Tender, Lungs Clear, No Accessory Muscle Use, No Respiratory Distress, Normal Breath Sounds Cardiovascular: No Edema, No JVD, No Murmur, No Gallop, Normal Peripheral Pulses, Regular Rate/Rhythm Breast Exam: Deferred Gastrointestinal: No Organomegaly, Non Tender, No Pulsatile Mass, Normal Bowel Sounds, Soft Genitalia: Deferred Pelvic: Deferred Rectal: Deferred Extremities: Calf tenderness (LT), Normal capillary refill, No pedal edema, Swelling (LT calf) Musculoskeletal : Apperance: Normal Neurologic: Alert, deployment specialist II-XII nml as Tested, No Motor Deficits, Normal Affect, Normal Mood, No Sensory Deficits Cerebellar Function: Normal Reflexes: Normal Skin: Dry, Normal Color, Warm Lymphatic: No Adenopathy Was a procedure done? Was a procedure done?: No Differential Diagnosis EXT Differential Diagnosis: Cellulitis, Deep Vein Thrombosis X-Ray, Labs, Meds, VS Vital Signs Date Time Temp Pulse Resp B/P (MAP) Pulse Ox O2 Delivery O2 Flow Rate FiO2 08/13/24 07:36 97.7 96 17 153/111 (125) 98 97.7 Lab Test 08/13/24 08:21 Range/Units White Blood Count Pending Red Blood Count Pending Hemoglobin Pending Hematocrit Pending Mean Corpuscular Volume Pending Mean Corpuscular Hemoglobin Pending Mean Corpuscular Hemoglobin Concent Pending Red Cell Distribution Width Pending Platelet Count Pending Mean Platelet Volume Pending Neutrophils (%) (Auto) Pending Lymphocytes (%) (Auto) Pending Monocytes (%) (Auto) Pending Basophils (%) (Auto) Pending Neutrophils # (Auto) Pending Lymphocytes # (Auto) Pending Monocytes # (Auto) Pending Prothrombin Time Pending Prothrombin Time INR Pending Activated Partial Thromboplast Time Pending D-Dimer, Quantitative Pending Sodium Level Pending Potassium Level Pending Chloride Level Pending Carbon Dioxide Level Pending Anion Gap Pending Blood Urea Nitrogen Pending Creatinine Pending Glomerular Filtration Rate Calc Pending BUN/Creatinine Ratio Pending Serum Glucose Pending Calcium Level Pending [address] [address] Ph: [phone] DIAGNOSTIC IMAGING Diagnostic Imaging Report : [id number] Signed PATIENT: PANCHO JASMINE ACCT: [id number] UNIT: [id number] : 1970 LOC: ER ROOM / BED: / AGE / SEX: 54 / M ADM STATUS: REG ER SERVICE ORDERING PHYSICIAN: TANNER RAND MD PROCEDURE(s): LLDVT - LT Lower DVT REASON: Left calf pain and swelling ORDER NUMBER(s): [id number], ACCESSION NUMBER(s): [id number] Left lower extremity venous duplex Clinical History: Left calf pain and swelling Comparison: US LT LOWER DVT on DOS: 08/07/23, US LT LOWER DVT on DOS: 05/02/23, US LT LOWER DVT on DOS: 04/09/23 Technique: Duplex Doppler evaluation of the deep venous system of the left lower extremity from the common femoral vein to the popliteal vein including color Doppler and spectral/pulsed waveform analysis was performed. Findings: The common femoral vein demonstrates intraluminal thrombus and noncompressibility. The femoral vein demonstrates intraluminal thrombus and noncompressibility.. The deep femoral vein demonstrates intraluminal thrombus and noncompressibility. The popliteal vein demonstrates intraluminal thrombus and noncompressibility. There is non compressibility at the tibioperoneal trunk. Impression: DVT is present in the left common femoral vein, femoral vein, popliteal vein and visualized calf. There is partial flow in the proximal femoral vein suggesting possible chronic component. Critical Result: DVT Findings discussed with Dr. Rand , at 08/13/2024 08:26 AM, and acknowledged receipt and understanding of the findings. ATED BY: MIGUEL GAITAN MD DICTATED DATE/TIME: 08/13/24826 SIGNED BY: MIGULE GAITAN MD SIGNED DATE/TIME: 08/13/24826 CC: Time of 1ST Reevaluation: 08:13 Reevaluation 1ST: Unchanged Patient Education/Counseling: Diagnosis, Treatment, Prognosis Family Education/Counseling: No Family Present Additional Information The following tests were ordered, and results were reviewed by me: PTPTT, D- DIMER, CBC, BMP, US LT LOWER DVT I reviewed and agreed with the following test results read by other providers: US LT LOWER DVT I discussed treatment and results with medical personnel and: Patient Comprehensive systems review obtained and negative except for what is stated in the HPI. Departure 1 Departure Time of Disposition: 08:34 (Patient has an extensive left lower extremity DVT. We will consult in artery and admit patient for further workup) Impression: Primary Impression: Left leg DVT Qualified Codes: I82.412 - Acute embolism and thrombosis of left femoral vein Additional Impression: Left leg pain Disposition: ADMITTED INPATIENT Admit to: Med Surg Condition: Serious Critical Care Note Critical Care Time?: No Stability Stability form required: No I personally scribed for TANNER RAND MD ([email or web address]) on 08/13/24 at 08:04. Electronically submitted by Dayan Tao ([email or web address]). I personally scribed for TANNER RAND MD ([email or web address]) on 08/13/24 at 08:10. Electronically submitted by Dayan Tao ([email or web address]). I personally scribed for TANNER RAND MD ([email or web address]) on 08/13/24 at 08:31. Electronically submitted by Dayan Tao ([email or web address]). TANNER RAND MD Aug 13, 2024 08:04
--- NOTE | 2024-08-13 08:29 | DVH ---
Left lower extremity venous duplex Clinical History: Left calf pain and swelling Comparison: US LT LOWER DVT on DOS: 08/07/23, US LT LOWER DVT on DOS: 05/02/23, US LT LOWER DVT on DOS: 04/09/23 Technique: Duplex Doppler evaluation of the deep venous system of the left lower extremity from the common femor al vein to the popliteal vein including color Doppler and spectral/pulsed waveform analysis was perfo rmed. Findings: The common femoral vein demonstrates intraluminal thrombus and noncompressibility. The femoral vein demonstrates intraluminal thrombus and noncompressibility.. The deep femoral vein demonstrates intraluminal thrombus and noncompressibility. The popliteal vein demonstrates intraluminal thrombus and noncompressibility. There is non compressibility at the tibioperoneal trunk. Impression: DVT is present in the left common femoral vein, femoral vein, popliteal vein and visualized calf. The re is partial flow in the proximal femoral vein suggesting possible chronic component. Critical Result: DVT Findings discussed with Dr. Ag , at 08/13/2024 08:26 AM, and acknowledged receipt and understandi ng of the findings.
[2024-08-13 08:42] LABS: Basophils # (auto) 0 10 ^3/uL (0-0.2); Basophils % (auto) 0.7 % (0.0-2.0); Eosinophils # (auto) 0 10 ^3/uL (0-0.8); Hematocrit 41.4 % (41.0-53.0); Hemoglobin 14.7 g/dL (13.5-17.5); Lymphocytes # (auto) 1.3 10 ^3/uL (0.4-5.4); Mean Corpuscular Hemoglobin 31.5 pg (28.0-32.0); Mean Corpuscular Hgb Conc. 35.5 g/dL (32.0-36.0); Mean Corpuscular Volume 88.8 fL (80.0-100.0); Monocytes # (auto) 0.3 10 ^3/uL (0-1.3); Neutrophils # (auto) 2.8 10 ^3/uL (1.6-8.6); Neutrophils % (auto) 63.3 % (37.0-80.0); Nucleated Red Blood Cells % 0.1 %; Platelet Count (auto) 304 10^3/uL (140-450); Red Blood Cells 4.67 10^6/uL (4.5-5.90); Red Cell Distribution Width 13.4 % (11.8-14.3); White Blood Cell 4.4 10^3/uL (4.4-10.8)
[2024-08-13 08:47] LABS: Chloride 101 mmol/L (98-107); Potassium 4.6 mmol/L (3.5-5.1); Sodium 136 mmol/L (136-145)
[2024-08-13 08:48] LABS: Anion Gap 8 (5-15); Carbon Dioxide 27 mmol/L (20-31)
[2024-08-13 08:50] LABS: Calcium 10.8 mg/dL (8.7-10.4)
[2024-08-13 08:53] LABS: Blood Urea Nitrogen 15 mg/dL (9-23)
[2024-08-13 08:55] LABS: Glucose 164 mg/dL (74-106)
[2024-08-13 08:57] LABS: INR 1.54 (0.9-1.15); Partial Thromboplastin Time 35.3 SEC (24.5-34.5); Prothrombin Time 15.6 sec (9.3-11.8)
[2024-08-13] MEDS: fentaNYL CITRATE 100 MCG/2 ML VL ONE (10:08)
[2024-08-13] MEDS: ANGIOMAX 250 MG VIAL IV ONE (10:08)
[2024-08-13] MEDS: MIDAZOLAM HCL 2MG/2ML 2ml VIAL (1mg/ml) ONE (10:09)
[2024-08-13] MEDS: LIDOCAINE 2%HCL (LOCAL ANESTH.) INJ 20ML MDV ONE (10:09)
[2024-08-13] MEDS: SODIUM CHL 0.9% 0 ML ONE (10:09)
[2024-08-13] MEDS: IODIXANOL 320MG/ML 100ML BTL IV ONE (10:10)
[2024-08-13] MEDS ORDERED: MORPHINE SULFATE INJ 2 MG/ml SYRG IV PRN (10:30)
[2024-08-13] MEDS ORDERED: DOCUSATE SOD 100 MG CAP PO PRN (10:30)
[2024-08-13] MEDS ORDERED: ONDANSETRON HCL 4 MG/2 ML VIAL IV PRN (10:30)
[2024-08-13] MEDS ORDERED: NITROGLYCERIN 0.4 MG SL TAB SL PRN (10:30)
[2024-08-13] MEDS ORDERED: HYDROcodone-ACET 5/325MG TAB PO PRN (10:30)
[2024-08-13] MEDS ORDERED: ACETAMINOPHEN 325 MG TAB PO PRN (10:30)
[2024-08-13] MEDS ORDERED: WARF-115 PO (10:41)
[2024-08-13] MEDS ORDERED: OXYC-998 PO (10:41)
[2024-08-13] MEDS ORDERED: LOSA-535 PO (10:41)
[2024-08-13] MEDS ORDERED: AMLO1TAB23 PO (10:41)
[2024-08-13] MEDS ORDERED: METO25TA93 PO (10:41)
[2024-08-13] MEDS ORDERED: HYDR50TA32 PO (10:41)
[2024-08-13] MEDS ORDERED: OXYCODONE HCL 10 MG PO PRN (10:45)
[2024-08-13] MEDS: HEPARIN SODIUM (PORCINE) 5000 UNITS/ML 1ML VIAL ONE (10:54)
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
--- NOTE | 2024-08-13 11:06 | DVH ---
CHEST RADIOGRAPH Indication: Pain Technique: Single frontal view of the chest was obtained COMPARISON: None FINDINGS: Lines and Tubes: None Lungs: Clear Pleura: No effusion. No pneumothorax. Cardiomediastinal contours: Cardiomegaly Bones: Unremarkable IMPRESSION: Cardiomegaly
[2024-08-13] MEDS: HYDROmorphone HCL 2 MG/ML VL/or syr ONE (11:35)
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
[2024-08-13] MEDS: SODIUM CHLORIDE 0.9% 1,000 ML IV SCH (14:10)
[2024-08-13] MEDS: oxyCODONE HCL 5MG TAB PO PRN (15:01)
[2024-08-13] MEDS: hydrOXYzine 25 MG TAB or CAP PO SCH (21:02)
[2024-08-13] MEDS: INSULIN LANTUS (GLARGINE) 1 /0.01ml (100units/ml) SC SCH (21:07)
[2024-08-13] MEDS ORDERED: PATIENTS OWN MEDICATION (Hydroxyzine HCl (Hydroxyzine Hydrochloride) 1 TAB) PO SCH (22:00)
[2024-08-14 04:53] VITALS: BP 108/79; PULSE 64; RESP 18; TEMP 97.4; O2SAT 98
[2024-08-14 06:52] LABS: INR 1.94 (0.9-1.15); Prothrombin Time 19.3 sec (9.3-11.8)
[2024-08-14 06:56] LABS: Basophils # (auto) 0 10 ^3/uL (0-0.2); Basophils % (auto) 0.9 % (0.0-2.0); Eosinophils # (auto) 0.1 10 ^3/uL (0-0.8); Eosinophils % (auto) 1.6 % (0.0-7.0); Hematocrit 38.4 % (41.0-53.0); Hemoglobin 13.3 g/dL (13.5-17.5); Lymphocytes # (auto) 1.4 10 ^3/uL (0.4-5.4); Lymphocytes % (auto) 32.2 % (10.0-50.0); Mean Corpuscular Hemoglobin 31.2 pg (28.0-32.0); Mean Corpuscular Hgb Conc. 34.6 g/dL (32.0-36.0); Mean Corpuscular Volume 90.4 fL (80.0-100.0); Monocytes # (auto) 0.3 10 ^3/uL (0-1.3); Monocytes % (auto) 7.2 % (0.0-12.0); Neutrophils # (auto) 2.5 10 ^3/uL (1.6-8.6); Neutrophils % (auto) 58.1 % (37.0-80.0); Nucleated Red Blood Cells % 0.1 %; Platelet Count (auto) 232 10^3/uL (140-450); Red Blood Cells 4.25 10^6/uL (4.5-5.90); Red Cell Distribution Width 13.4 % (11.8-14.3); White Blood Cell 4.4 10^3/uL (4.4-10.8)
[2024-08-14 07:45] LABS: Alanine Aminotransferase 40 U/L (7-40); Albumin 4.3 g/dL (3.2-4.8); Alkaline Phosphatase 51 U/L (46-116); Anion Gap 9 (5-15); Aspartate Aminotransferase 32 U/L (13-40); Blood Urea Nitrogen 16 mg/dL (9-23); Calcium 9.6 mg/dL (8.7-10.4); Carbon Dioxide 27 mmol/L (20-31); Chloride 102 mmol/L (98-107); Potassium 3.9 mmol/L (3.5-5.1); Sodium 138 mmol/L (136-145); Total Protein 6.7 g/dL (5.7-8.2)
[2024-08-14 07:46] LABS: Bilirubin, Total 0.3 mg/dL (0.2-1.0)
[2024-08-14 07:48] LABS: Glucose 110 mg/dL (74-106)
[2024-08-14 08:10] VITALS: O2SAT 95
--- NOTE | 2024-08-14 08:42 | DVHPNRES ---
Progress Note Objective vital signs Vital Sign Date Time Temp Pulse Resp B/P (MAP) Pulse Ox O2 Delivery O2 Flow Rate FiO2 08/14/24 04:53 97.4 64 18 108/79 (89) 98 97.4 08/13/24 20:00 Room Air* 0 21 Total Intake and Output 08/13/24 08/13/24 08/14/24 15:00 23:00 07:00 Intake Total 0 ml 900 ml 1600 ml Output Total 1300 ml Balance 0 ml 900 ml 300 ml medications Current Medications Medications Dose Ordered Sig/Rebecca Route Start Time Stop Time Status Last Admin Dose Admin Sodium Chloride 1,000 ml @ 100 mls/hr Q10H IV 08/13/24 10:30 08/14/24 05:01 100 MLS/HR Acetaminophen/ Hydrocodone Bitart 1 tab Q4HP PRN PO 08/13/24 10:30 Ondansetron HCl 4 mg Q4HP PRN IV 08/13/24 10:30 Docusate Sodium 100 mg BIDPRN PRN PO 08/13/24 10:30 Acetaminophen 650 mg Q6HP PRN PO 08/13/24 10:30 Nitroglycerin 0.4 mg Q5MINP PRN SL 08/13/24 10:30 Morphine Sulfate 2 mg Q30M PRN IV 08/13/24 10:30 Insulin Glargine 38 units BID SC 08/13/24 22:00 08/13/24 21:07 38 UNITS Patient Own Medication 1 tab DAILY PO 08/14/24 10:00 UNV Patient Own Medication 1 tab BID PO 08/13/24 22:00 UNV Patient Own Medication 1 tab DAILY PO 08/14/24 10:00 UNV Patient Own Medication 1 tab DAILY PO 08/14/24 10:00 UNV Patient Own Medication 10 mg QIDPRN PRN PO 08/13/24 10:45 UNV Warfarin Sodium RX PROTOCOL PER PHARMACY PO 08/13/24 11:00 Amlodipine Besylate 10 mg DAILY PO 08/14/24 10:00 Hydroxyzine Pamoate 50 mg BID PO 08/13/24 22:00 08/13/24 21:02 50 MG Losartan Potassium 100 mg DAILY PO 08/14/24 10:00 Metoprolol Succinate 25 mg DAILY PO 08/14/24 10:00 Oxycodone HCl 10 mg QIDPRN PRN PO 08/13/24 14:15 08/14/24 03:55 10 MG laboratory and microbiology Laboratory Tests 08/14/24 05:49 Test 08/14/24 05:49 Range/Units Serum Glucose 110 H 74-106 mg/dL SUSHMA MCKEON RESDIENT Aug 14, 2024 08:42
[2024-08-14 09:00] VITALS: BP 130/82; PULSE 66; RESP 20; TEMP 98.2; O2SAT 96
[2024-08-14] MEDS: amLODIPine BESYLATE 5 MG TAB PO SCH (09:53)
[2024-08-14] MEDS: METOPROLOL SUCCINATE XL 50 MG TAB PO SCH (09:54)
[2024-08-14] MEDS: LOSARTAN POTASSIUM 50 MG TAB PO SCH (09:54)
[2024-08-14] MEDS ORDERED: [UNRECOGNIZED DRUG - OTHER] PO SCH (10:00)
[2024-08-14] MEDS ORDERED: PATIENTS OWN MEDICATION (Losartan Potassium 1 TAB) PO SCH (10:00)
[2024-08-14] MEDS ORDERED: PATIENTS OWN MEDICATION (Metoprolol Succinate (Metoprolol Succinate Er) 1 TAB) PO SCH (10:00)
[2024-08-14] MEDS ORDERED: PATIENTS OWN MEDICATION (Amlodipine Besylate 1 TAB) PO SCH (10:00)
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
[2024-08-14 13:00] VITALS: BP 118/78; PULSE 71; RESP 20; TEMP 97.5; O2SAT 97
[2024-08-14] MEDS ORDERED: WARFARIN SODIUM 5 MG TAB PO ONE (17:00)
--- NOTE | 2024-08-15 07:57 | ECG ---
[facility] Test Date: 2024-08-13 Test Time: 10:39:13 Pat Name: PANCHO JASMINE Department: Room: 0217T B Gender: M Admitting Coordinator: ANGEL : 1970 Requested By: BUNNY JACKSON Order Number: [id number] Reading MD: Blake Alcantara Measurements Intervals [place] Rate: 74 P: 31 WV: 176 QRS: 10 QRSD: 106 T: 12 QT: 392 QTc: 435 Interpretive Statements Normal sinus rhythm Inferior infarct , age undetermined Electronically Signed On 08-15-2024 20:24:11 PDT by Blake Alcantara Please click the below link to view image of tracing.
== END 2024-08-14 14:45 | disposition home or self-care (01) | DRG 197 ==
LOC: ER 07:13 → OVERFLOW 10:24 → TELE-CENTR 14:12
PROVIDERS: ADMIT Student in an Organized Health Care Education/Training Program; ATTEND Emergency Medicine
PROC: B41GYZZ Fluoroscopy of Left Lower Extremity Arteries using Other Contrast (ICD-10-PCS; principal; 2024-08-13)
DX: I82.412 Acute embolism and thrombosis of left femoral vein (principal); E11.9 Type 2 diabetes mellitus without complications; E78.5 Hyperlipidemia, unspecified; I10 Essential (primary) hypertension; F17.210 Nicotine dependence, cigarettes, uncomplicated; F12.90 Cannabis use, unspecified, uncomplicated; Z88.6 Allergy status to analgesic agent; Z88.8 Allergy status to other drugs, medicaments and biological substances; Z79.899 Other long term (current) drug therapy; Z79.891 Long term (current) use of opiate analgesic; Z79.01 Long term (current) use of anticoagulants; Z79.4 Long term (current) use of insulin; Z83.3 Family history of diabetes mellitus; Z82.49 Family history of ischemic heart disease and other diseases of the circulatory system; Z86.718 Personal history of other venous thrombosis and embolism
CPT/HCPCS: 36415; 37187; 71045; 75716; 80048; 80053; 82962; 85025; 85379; 85610; 85730; 93005; 93971; 99152; C1769; C1894; G0378; J1815; J2250; Q9967

== ENCOUNTER 2024-09-20 09:14 | Inpatient (IN) | payer MEDICAID ==
[~2024-09-20] VITALS: Ht 188 cm; Wt 131.0 kg
[~2024-09-20 09:14] MED LIST changes: +AMLO1TAB23 PO; -APIX5TAB PO; +HYDR50TA32 PO; -INSLANTI; +LOSA-535 PO; +METO25TA93 PO; +OXYC-998 PO; -PERCOT PO; +WARF-115 PO
--- NOTE | 2024-09-20 09:46 | ECG ---
[facility] Test Date: 2024-09-20 Test Time: 09:41:50 Pat Name: PANCHO JASMINE Department: ER Room: 0222T Gender: M Group Therapy Counselor: DEMOND : 1970 Requested By: TANNER RAND Order Number: [id number] Reading MD: Blake Alcantara Measurements Intervals [place] Rate: 83 P: 51 PA: 162 QRS: 101 QRSD: 109 T: -2 QT: 391 QTc: 460 Interpretive Statements Sinus rhythm Right axis deviation Borderline T abnormalities, inferior leads Baseline wander in lead(s) V3 Electronically Signed On 09-21-2024 21:02:09 PDT by Blake Alcantara Please click the below link to view image of tracing.
[2024-09-20 10:00] VITALS: PULSE 86; RESP 13; O2SAT 93
--- NOTE | 2024-09-20 10:15 | ED.PDOC ---
History of Present Illness HPI Comments 54 year old male presents to the ED with a chief complaint of LT lower leg pain onset 2 days. Patient states he has been experiencing LT lower leg pain with swelling as well as shortness of breath for the past 2 days. Patient was diagnosed with DVT, [facility]. Patient states currently shor tness of breath has improved. PMHx DVT, HTN, HLD, DM. Denies chest pain, nausea, vomiting, abdominal pain, dizziness, headache. No other symptoms or modifying factors present at this time. Chief Complaint: Shortness of Breath Time Seen by MD: 10:05 Primary Care Provider: CALIXTO GOLDBERG Reviewed Notes: Medications, Allergies Allergies: Coded Allergies: Morphine (Verified Allergy, Severe, 09/05/16) Home Meds Active Scripts Lidocaine (LIDODERM 5% TOPICAL PATCH) 1 Patch Ph, 1 PATCH TOP DAILY PRN, #30 PATCH 1 Refill Prov:JADE [facility] 06/27/22 Reported Medications Hydroxyzine HCl (Hydroxyzine Hydrochloride) 50 Mg Tab, 1 TAB PO BID 08/13/24 Losartan Potassium (Losartan Potassium) 100 Mg Tab, 1 TAB PO DAILY 08/13/24 Amlodipine Besylate (Amlodipine Besylate) 10 Mg Tab, 1 TAB PO DAILY 08/13/24 Oxycodone HCl (Oxycodone Hydrochloride) 10 Mg Tab, 10 MG PO TIDPRN PRN, TAB 08/13/24 Metoprolol Succinate (Metoprolol Succinate Er) 25 Mg Tab, 1 TAB PO DAILY 08/13/24 Warfarin Sodium (Warfarin Sodium) 10 Mg Tab, 1 TAB PO DAILY 08/13/24 Insulin Glargine (Lantus) 100 Unit/Ml Inj, 38 UNIT SC BID, INJ 12/28/17 Gemfibrozil (Gemfibrozil) 600 Mg Tab, #60 11/26/15 Lisinopril (Lisinopril) 10 Mg Tab, #30 11/26/15 Information Source: Patient Mode of Arrival: Ambulatory Severity: Moderate Timing: Days Duration: Since onset Prehospital treatment: None Past Medical History PAST MEDICAL HISTORY: DM, High Lipids, HTN Past Medical History (Other): DVT Family History Family History: Family hx of DM, Family hx of HTN Social History Smoker: Cigarettes, Less Than 1 Pack/Day Alcohol: Occasionally Drugs: Marijuana Lives In: Home Constitutional: denies: chills, diaphoresis, fatigue, fever, malaise, sweats, weakness, others EENTM: denies: blurred vision, double vision, ear bleeding, ear discharge, ear drainage, ear pain, ear ringing, eye pain, eye redness, hearing loss, mouth p ain, mouth swelling, nasal discharge, nose bleeding, nose congestion, nose pain, photophobia, tearing, throat pain, throat swelling, voice changes, others Respiratory: reports: shortness of breath; denies: cough, hemoptysis, orthopnea, SOB at rest, SOB with excertion, stridor, wheezing, others Cardiovascular: denies: chest pain, dizzy spells, diaphoresis, Dyspnea on exertion, edema, irregular heart beat, left arm pain, lightheadedness, palpita tions, PND, syncope, others Gastrointestinal: denies: abdomen distended, abdominal pain, blood streaked aishwarya wels, constipated, diarrhea, dysphagia, difficulty swallowing, hematemesis, melena, nausea, poor appetite, poor fluid intake, rectal bleeding, rectal pain, vomiting, others Genitourinary: denies: burning, dysuria, flank pain, frequency, hematuria, incontinence, penile discharge, penile sore, pain, testicle pain, testicle swelling, urgency, others Neurological: denies: dizziness, fainting, headache, left sided numbness, left sided weakness, numbness, paresthesia, pre-existing deficit, right sided numbness, right sided weakness, seizure, speech problems, tingling, tremors, weakness, others Musculoskeletal: reports: others (LT lower leg pain, swelling); denies: back pain, gout, joint pain, joint swelling, muscle pain, muscle stiffness, neck pain Integumetry: denies: bruises, change in color, change in hair/nails, dryness, laceration, lesions, lumps, rash, wounds, others Allergic/Immunocompromised: denies: Difficulty Healing, Frequent Infections, Hives, Itching, others Hematologic/Lymphatic: denies: anemia, blood clots, easy bleeding, easy bruising, swollen glands, others Endocrine: denies: excessive hunger, excessive sweating, excessive thirst, excessive urination, flushing, intolerance to cold, intolerance to heat, unexplained weight gain, unexplained weight loss, others Psychiatric: denies: anxiety, bipolar disorder, depression, hopeless, panic disorder, schizophrenia, sleepless, suicidal, others All Other Systems: Reviewed and Negative Physical Exam General Appearance: No Apparent Distress, Normal HEENT: Normal ENT Inspection, Pharynx Normal, TMs Normal Neck: Full Range of Motion, Non-Tender, Normal, Normal Inspection Respiratory: Chest Non-Tender, Lungs Clear, No Accessory Muscle Use, No Respiratory Distress, Normal Breath Sounds Cardiovascular: No Edema, No JVD, No Murmur, No Gallop, Normal Peripheral Pulses, Regular Rate/Rhythm Breast Exam: Deferred Gastrointestinal: No Organomegaly, Non Tender, No Pulsatile Mass, Normal Bowel Sounds, Soft Genitalia: Deferred Pelvic: Deferred Rectal: Deferred Extremities: No calf tenderness, Normal capillary refill, Normal inspection, Normal range of motion, Non-tender, No pedal edema Musculoskeletal : Apperance: Normal Neurologic: Alert, business development executive II-XII nml as Tested, No Motor Deficits, Normal Affect, Normal Mood, No Sensory Deficits Cerebellar Function: Normal Reflexes: Normal Skin: Dry, Normal Color, Warm Lymphatic: No Adenopathy Was a procedure done? Was a procedure done?: No EKG EKG : Pulse Rate (adult): 83 Cardiac Rhythm: NSR Differential Dx Considerations may include: ACS, CVA, viral syndrome, infectious etiology X-Ray, Labs, Meds, VS Vital Signs Date Time Temp Pulse Resp B/P (MAP) Pulse Ox O2 Delivery O2 Flow Rate FiO2 09/20/24 11:59 78 14 109/53 (71) 95 09/20/24 10:15 83 09/20/24 10:12 77 16 139/79 (99) 93 09/20/24 10:00 86 13 93 Room Air* 0 21 09/20/24 09:41 83 09/20/24 09:34 19 98 Room Air* 0 21 09/20/24 09:34 98.8 85 19 140/83 (102) 99 98.8 Lab Test 09/20/24 12:05 09/20/24 11:06 Range/Units Troponin I High Sensitivity 4 3 L </=54 ng/L White Blood Count 4.3 L 4.4-10.8 10^3/uL Red Blood Count 4.38 L 4.5-5.90 10^6/uL Hemoglobin 13.6 13.5-17.5 g/dL Hematocrit 39.2 L 41.0-53.0 % Mean Corpuscular Volume 89.5 80.0-100.0 fL Mean Corpuscular Hemoglobin 31.0 28.0-32.0 pg Mean Corpuscular Hemoglobin Concent 34.6 32.0-36.0 g/dL Red Cell Distribution Width 13.5 11.8-14.3 % Platelet Count 207 140-450 10^3/uL Mean Platelet Volume 7.1 6.9-10.8 fL Neutrophils (%) (Auto) 69.2 37.0-80.0 % Lymphocytes (%) (Auto) 22.7 10.0-50.0 % Monocytes (%) (Auto) 6.4 0.0-12.0 % Eosinophils (%) (Auto) 1.0 0.0-7.0 % Basophils (%) (Auto) 0.7 0.0-2.0 % Neutrophils # (Auto) 3.0 1.6-8.6 10 ^3/uL Lymphocytes # (Auto) 1.0 0.4-5.4 10 ^3/uL Monocytes # (Auto) 0.3 0-1.3 10 ^3/uL Eosinophils # (Auto) 0 0-0.8 10 ^3/uL Basophils # (Auto) 0 0-0.2 10 ^3/uL Nucleated Red Blood Cells 0.1 % Prothrombin Time 18.2 H 9.3-11.8 sec Prothrombin Time INR 1.82 H 0.9-1.15 Activated Partial Thromboplast Time 38.3 H 24.5-34.5 SEC Sodium Level 141 136-145 mmol/L Potassium Level 4.3 3.5-5.1 mmol/L Chloride Level 104 98-107 mmol/L Carbon Dioxide Level 30 20-31 mmol/L Anion Gap 7 5-15 Blood Urea Nitrogen 19 9-23 mg/dL Creatinine 1.05 0.700-1.30 mg/dL Glomerular Filtration Rate Calc 85 >90 mL/min BUN/Creatinine Ratio 18.1 10.0-20.0 Serum Glucose 95 74-106 mg/dL Calcium Level 10.3 8.7-10.4 mg/dL B-Type Natriuretic Peptide 42.63 0-100 pg/mL Current Medications Medications (Trade) Dose Ordered Sig/Rebecca Route Start Time Stop Time Status Last Admin Acetaminophen/ Hydrocodone Bitart ([place] 5/325MG Tab) 1 tab ONCE ONCE PO 09/20/24 11:00 09/20/24 11:02 DC 09/20/24 11:[address] [address] Ph: [phone] DIAGNOSTIC IMAGING Diagnostic Imaging Report : [id number] Signed PATIENT: PANCHO JASMINE ACCT: [id number] UNIT: [id number] : 1970 LOC: ER ROOM / BED: / AGE / SEX: 54 / M ADM STATUS: REG ER SERVICE 1059 ORDERING PHYSICIAN: TANNER RAND MD PROCEDURE(s): CXRP - CHEST PORTABLE REASON: sob ORDER NUMBER(s): [id number], ACCESSION NUMBER(s): [id number] EXAM: XY CHEST PORTABLE Indication: sob Technique: Single frontal view of the chest was obtained Comparison: XY CHEST XRAY 1 VIEW on DOS: 08/13/24 FINDINGS: Lines and Tubes: None Lungs: No focal consolidation. Pleura: No effusion. No pneumothorax. Cardiomediastinal contours: Unremarkable Bones: No acute osseous abnormality. IMPRESSION: No acute cardiopulmonary disease. ATED BY: DANNY CEVALLOS MD DICTATED DATE/TIME: 09/20/241127 SIGNED BY: DANNY CEVALLOS MD SIGNED DATE/TIME: 09/20/241127 CC: Time of 1ST Reevaluation: 10:35 Reevaluation 1ST: Unchanged Patient Education/Counseling: Diagnosis, Treatment, Prognosis Family Education/Counseling: No Family Present Additional Information The following tests were ordered, and results were reviewed by me: EKG, TROP - x3, XY CHEST, BNP, BMP, CBC I reviewed and agreed with the following test results read by other providers: XY CHEST I discussed treatment and results with medical personnel and: patient Comprehensive systems review obtained and negative except for what is stated in the HPI. Departure 1 Departure Time of Disposition: 12:54 (Patient presented with leg pain with a history of DVT and shortness of breath that has subsequently resolved. Patient received pain medication and then reported he wanted a different pain medication went to leave his the hospital. On the way outpatient had more pain and re-presented back to the ER.) Impression: Primary Impression: Bilateral leg pain Additional Impressions: Chronic deep vein thrombosis of left lower extremity Qualified Codes: I82.502 - Chronic embolism and thrombosis of unspecified deep veins of left lower extremity Shortness of breath Disposition: ADMITTED INPATIENT Admit to: Med Surg Condition: Serious Critical Care Note Critical Care Time?: No Stability Stability form required: No I personally scribed for TANNER RAND MD ([email or web address]) on 09/20/24 at 10:15. Electronically submitted by Dayan Tao ([email or web address]). I personally scribed for TANNER RAND MD ([email or web address]) on 09/20/24 at 11:02. Electronically submitted by Dayan Tao ([email or web address]). I personally scribed for TANNER RAND MD ([email or web address]) on 09/20/24 at 12:05. Electronically submitted by Dayan Tao ([email or web address]). TANNER RAND MD September 20, 2024 10:15
[2024-09-20] MEDS: HYDROcodone-ACET 5/325MG TAB PO ONE (11:10)
[2024-09-20 11:17] LABS: Basophils # (auto) 0 10 ^3/uL (0-0.2); Basophils % (auto) 0.7 % (0.0-2.0); Eosinophils # (auto) 0 10 ^3/uL (0-0.8); Hematocrit 39.2 % (41.0-53.0); Hemoglobin 13.6 g/dL (13.5-17.5); Lymphocytes % (auto) 22.7 % (10.0-50.0); Mean Corpuscular Hgb Conc. 34.6 g/dL (32.0-36.0); Mean Corpuscular Volume 89.5 fL (80.0-100.0); Monocytes # (auto) 0.3 10 ^3/uL (0-1.3); Monocytes % (auto) 6.4 % (0.0-12.0); Neutrophils % (auto) 69.2 % (37.0-80.0); Nucleated Red Blood Cells % 0.1 %; Platelet Count (auto) 207 10^3/uL (140-450); Red Blood Cells 4.38 10^6/uL (4.5-5.90); Red Cell Distribution Width 13.5 % (11.8-14.3); White Blood Cell 4.3 10^3/uL (4.4-10.8)
[2024-09-20 11:25] LABS: Chloride 104 mmol/L (98-107); Potassium 4.3 mmol/L (3.5-5.1); Sodium 141 mmol/L (136-145)
[2024-09-20 11:26] LABS: Anion Gap 7 (5-15); Calcium 10.3 mg/dL (8.7-10.4); Carbon Dioxide 30 mmol/L (20-31)
--- NOTE | 2024-09-20 11:30 | DVH ---
EXAM: XY CHEST PORTABLE Indication: sob Technique: Single frontal view of the chest was obtained Comparison: XY CHEST XRAY 1 VIEW on DOS: 08/13/24 FINDINGS: Lines and Tubes: None Lungs: No focal consolidation. Pleura: No effusion. No pneumothorax. Cardiomediastinal contours: Unremarkable Bones: No acute osseous abnormality. IMPRESSION: No acute cardiopulmonary disease.
[2024-09-20 11:31] LABS: BUN/Creatinine Ratio 18.1 (10.0-20.0); Blood Urea Nitrogen 19 mg/dL (9-23); Glucose 95 mg/dL (74-106)
[2024-09-20 11:50] LABS: INR 1.82 (0.9-1.15); Partial Thromboplastin Time 38.3 SEC (24.5-34.5); Prothrombin Time 18.2 sec (9.3-11.8)
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
[2024-09-20] MEDS ORDERED: ACETAMINOPHEN 325 MG TAB PO PRN (15:30)
[2024-09-20] MEDS ORDERED: NITROGLYCERIN 0.4 MG SL TAB SL PRN (15:30)
[2024-09-20] MEDS ORDERED: MORPHINE SULFATE INJ 2 MG/ml SYRG IV PRN (15:30)
[2024-09-20] MEDS ORDERED: DEXTROSE (50%) 50ML SYRG IV PRN (15:30)
--- NOTE | 2024-09-20 16:53 | DVH ---
Procedure: US BiLat Lower DVT Study Date and Requested Time: 09/20/2024 03:36 PM History : r/o dvt Comparison: US LT LOWER DVT on DOS: 08/13/24, US LT LOWER DVT on DOS: 08/07/23, US LT LOWER DVT on DOS: 1 07/03/22 Technique: Multiple high resolution coon-scale images with and without compression obtained of the bi lateral lower extremity veins, including the common femoral vein, deep femoral vein, proximal mid and distal superficial femoral vein, and popliteal vein. Additional limited images of the greater saphen ous vein also obtained. Augmentation performed as indicated. Color and spectral doppler flow images o btained as indicated. Findings: There is nonocclusive thrombus within the left common femoral vein, left superficial femoral vein and left popliteal vein. Otherwise, No visible intraluminal venous thrombus no evidence of incompressib ility or abnormal color or spectral Doppler flow visualized in the remainder of the bilateral lower e xtremity veins. Greater saphenous vein grossly unremarkable. Impression: Deep vein thrombosis involving the left common femoral vein, left superficial femoral vein and left p opliteal vein.
[2024-09-20] MEDS: InsuLIN REG 1unit/0.01ml Soln (100units/ml) SC SCH (17:00)
[2024-09-20] MEDS: IOHEXOL 350 MG/ML 100ML IJ ONE (17:01)
[2024-09-20] MEDS: ACCU-CHEK COMFORT CURVE STRIP VI SCH (17:13)
[2024-09-20 17:36] LABS: Amphetamine Screen, Urine Neg (NEGATIVE); Barbiturate Scree,Urine Neg (NEGATIVE); Benzodiazephine Screen, Urine Neg (NEGATIVE); Cannabinoid Screen, Urine Pos (NEGATIVE); Cocaine Screen, Urine Neg (NEGATIVE); Opiate Scree,Urine Neg (NEGATIVE)
[2024-09-20 17:37] LABS: Phencyclidine Screen, Urine Neg (NEGATIVE)
--- NOTE | 2024-09-20 18:14 | DVH ---
CTA Chest with intravenous contrast INDICATION: ivc filter COMPARISON: CT CT ANGIO CHEST CONTRAST on DOS: 08/07/23 TECHNIQUE: Multidetector spiral CTA of the chest was performed of the chest with intravenous contrast . PULMONARY ANGIOGRAPHY PROTOCOL was utilized using a bolus-tracking technique centered on the main p ulmonary artery. Axial, coronal and sagittal multiplanar and MIP reformats were performed. Radiation Dose : 1. Chest: CTDI volume is 29.2 mGy. Dose-length product is 1095 mGy*cm The dose indicators for CT are the volume Computed Tomography (CT) Dose Index (CTDIvol) and the Dose Length Product (DLP), and are measured in units of mGy and mGy-cm, respectively. These indicators are not patient dose, but values generated from the CT scanner acquisition factors. The report includes radiation exposure data for exposures received during this examination. Findings: Pulmonary artery: No central pulmonary embolism Lower neck: Normal thyroid. Lungs: No focal consolidation, pleural effusion or pneumothorax. Heart/Vascular Structures: Normal heart size. No pericardial effusion. Lymph Nodes: No adenopathy Pleura: No pleural effusion or significant pneumothorax. Musculoskeletal: No acute osseous abnormality. Soft tissues: Normal. Upper abdomen: Limited portions of the upper abdomen are unremarkable. IMPRESSION: 1. No central pulmonary embolism. 2. No acute thoracic finding.
[2024-09-20] MEDS: OXYCODONE W/ ACETAMINOPHEN 5/325MG TABLET PO PRN (18:27)
[2024-09-20 18:42] VITALS: BP 126/72; PULSE 72; RESP 20; TEMP 98.6; O2SAT 93
[2024-09-20 18:51] VITALS: BP 126/72; PULSE 72; RESP 20; TEMP 98.6; O2SAT 93
[2024-09-20 20:00] VITALS: PULSE 75; PULSE 85
[2024-09-20 21:00] VITALS: BP 129/74; PULSE 77; RESP 50; TEMP 98.8; O2SAT 94
[2024-09-20] MEDS ORDERED: hydrOXYzine 25 MG TAB or CAP PO PRN (22:00)
[2024-09-20] MEDS: OXYCODONE W/ ACETAMINOPHEN 5/325MG TABLET PO ONE (22:51)
--- NOTE | 2024-09-20 23:09 | DVHSR ---
APPROVED REPORT EXAM: Two-dimensional and M-mode echocardiogram with Doppler and color Doppler. Blood Pressure: 104/61 mmHg INDICATION SOB RISK FACTORS Height: 74, Weight: 279 DIMENSIONS LVDd4.6 (3.8-5.7cm)LA (2D)4.9 (1.9-4.0cm)Aortic Root4.1 (2.0-3.7cm) LVDs3.2 (2.5-4.0cm)LA (MM) (1.9-4.0cm)Aortic Cusp Exc2.2 (1.5-2.0cm) EF (%) 57.0 (55-70%)Rt. Atrium3.5 (1.9-4.0cm)Asc. Aorta cm IVSd1.4 (0.7-1.1cm)RV (D) (1.8-2.4cm) PWd1.6 (0.7-1.1cm) Mitral Valve MitralMitral Stenosis E wave0.75m/sMV Mean GR.mmHg A wave0.82m/sMV Peak GR.mmHg E/A ratio0.92D MVAcm2 DECEL [id number] 1/2 [id number] IVRTmsDop MVA2.36cm2 Aortic Valve Aortic ValveAortic Stenosis V10.95m/Emelina Mean GR.5mmHg V21.44m/Emelina Peak GR.8mmHg LVOT Diameter2.5 (1.8-2.4cm)Doppler AVA3.24cm2 Pulmonic Valve V20.79m/s Tricuspid Valve TR Velocity2.38m/s [id number] Conclusion Technically good study. Sinus rhythm. Concentric LVH. Left atrial enlargement. Aortic root enlargement. Valves are normal. EF of 60% with normal RV function. [id number] MR. Moderate TR. No pericardial effusion masses or vegetations.
[2024-09-21] VITALS (7 sets, daily range): BP systolic 93–148; BP diastolic 57–81; PULSE 60–79; RESP 18–20; TEMP 97.7–98.3; O2SAT 93–99
[2024-09-21] MEDS: ONDANSETRON HCL 4 MG/2 ML VIAL IV PRN (05:38)
[2024-09-21 06:53] LABS: Basophils # (auto) 0 10 ^3/uL (0-0.2); Basophils % (auto) 0.6 % (0.0-2.0); Eosinophils # (auto) 0.1 10 ^3/uL (0-0.8); Eosinophils % (auto) 1.7 % (0.0-7.0); Hematocrit 37.8 % (41.0-53.0); Hemoglobin 13.1 g/dL (13.5-17.5); Lymphocytes # (auto) 1.3 10 ^3/uL (0.4-5.4); Mean Corpuscular Hemoglobin 31.2 pg (28.0-32.0); Mean Corpuscular Hgb Conc. 34.8 g/dL (32.0-36.0); Mean Corpuscular Volume 89.7 fL (80.0-100.0); Monocytes # (auto) 0.2 10 ^3/uL (0-1.3); Monocytes % (auto) 5.9 % (0.0-12.0); Neutrophils # (auto) 1.6 10 ^3/uL (1.6-8.6); Neutrophils % (auto) 50.8 % (37.0-80.0); Nucleated Red Blood Cells % 0.1 %; Platelet Count (auto) 186 10^3/uL (140-450); Red Blood Cells 4.21 10^6/uL (4.5-5.90); Red Cell Distribution Width 13.6 % (11.8-14.3); White Blood Cell 3.2 10^3/uL (4.4-10.8)
[2024-09-21 06:56] LABS: INR 1.79 (0.9-1.15); Prothrombin Time 17.9 sec (9.3-11.8)
[2024-09-21 07:01] LABS: Alanine Aminotransferase 29 U/L (7-40); Albumin 4.2 g/dL (3.2-4.8); Alkaline Phosphatase 54 U/L (46-116); Anion Gap 8 (5-15); Aspartate Aminotransferase 23 U/L (13-40); BUN/Creatinine Ratio 18.5 (10.0-20.0); Blood Urea Nitrogen 20 mg/dL (9-23); Calcium 9.6 mg/dL (8.7-10.4); Carbon Dioxide 29 mmol/L (20-31); Chloride 103 mmol/L (98-107); Potassium 3.6 mmol/L (3.5-5.1); Sodium 140 mmol/L (136-145); Total Protein 6.4 g/dL (5.7-8.2)
[2024-09-21 07:02] LABS: Bilirubin, Total 0.5 mg/dL (0.2-1.0)
[2024-09-21 07:16] LABS: Glucose 124 mg/dL (74-106)
[2024-09-21] MEDS ORDERED: LISINOPRIL 5 MG TAB PO SCH (10:00)
[2024-09-21] MEDS: METOPROLOL SUCCINATE XL 50 MG TAB PO SCH (10:00)
[2024-09-21] MEDS ORDERED: GEMFIBROZIL 600 MG TAB PO SCH (10:00)
[2024-09-21] MEDS: LOSARTAN POTASSIUM 50 MG TAB PO SCH (10:00)
[2024-09-21] MEDS: amLODIPine BESYLATE 5 MG TAB PO SCH (10:57)
[2024-09-21] MEDS: HYDROmorphone HCL 2 MG/ML VL/or syr IV PRN (13:04)
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
[2024-09-21] MEDS ORDERED: WARFARIN SODIUM 2.5 MG TAB PO ONE (17:00)
[2024-09-21] MEDS: OXYCODONE W/ ACETAMINOPHEN 5/325MG TABLET PO PRN (20:14)
[2024-09-21] MEDS: ENOXAPARIN SOD 150 MG/1 ML SYRINGE SC SCH (22:36)
[2024-09-22] VITALS (7 sets, daily range): BP systolic 102–128; BP diastolic 63–80; PULSE 63–76; RESP 16–20; TEMP 96.5–98; O2SAT 95–100
[2024-09-22] MEDS ORDERED: ENO150SY SC (11:17)
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
[2024-09-22] MEDS ORDERED: ENOXAPARIN SOD 150 MG/1 ML SYRINGE SC SCH (22:00)
== END 2024-09-22 18:10 | disposition home or self-care (01) | DRG 197 ==
LOC: ER 09:14 → OVERFLOW 15:22 → TELE-CENTR 18:10
DX: I82.402 Acute embolism and thrombosis of unspecified deep veins of left lower extremity (principal); I11.0 Hypertensive heart disease with heart failure; I50.32 Chronic diastolic (congestive) heart failure; E11.9 Type 2 diabetes mellitus without complications; E66.9 Obesity, unspecified; F17.210 Nicotine dependence, cigarettes, uncomplicated; E78.5 Hyperlipidemia, unspecified; G89.29 Other chronic pain; M54.30 Sciatica, unspecified side; Z88.5 Allergy status to narcotic agent; Z79.891 Long term (current) use of opiate analgesic; Z79.899 Other long term (current) drug therapy; Z79.4 Long term (current) use of insulin; Z79.01 Long term (current) use of anticoagulants; Z82.49 Family history of ischemic heart disease and other diseases of the circulatory system; Z83.3 Family history of diabetes mellitus; Z95.828 Presence of other vascular implants and grafts; Z68.36 Body mass index [BMI] 36.0-36.9, adult
CPT/HCPCS: 36415; 71045; 71275; 80048; 80053; 80307; 82962; 83036; 83880; 84484; 85025; 85610; 85730; 93005; 93306; 93970; G0378; J2405

== ENCOUNTER 2024-11-10 09:19 | Emergency (ER) | payer MEDICAID ==
[~2024-11-10] VITALS: Ht 188 cm; Wt 133.1 kg
[~2024-11-10 09:19] MED LIST changes: +ENO150SY SC
[2024-11-10 09:35] VITALS: BP 156/98; TEMP 98.1
[2024-11-10 09:40] VITALS: PULSE 95; RESP 20; O2SAT 98
[2024-11-10] MEDS: HYDROcodone-ACET 10/325MG TAB PO ONE (09:43)
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
--- NOTE | 2024-11-10 10:22 | DVH ---
INDICATION: fall, trauma, pain TECHNIQUE: 3 views of the lumbar spine were obtained. COMPARISON: LUMBAR SPINE LTD on DOS: 06/27/22, LUMB2 on DOS: 06/27/22 FINDINGS: There are no acute fractures or subluxations. Lumbar spinal fixation hardware and disc spacer material at L4-L5. Degenerative disc space narrowing at L4-L5. IVC filter in-situ. If IVC filter is no longer required, nonemergent removal recommended. IMPRESSION: No acute fracture or subluxation.
== END 2024-11-10 10:36 | disposition home or self-care (01) ==
LOC: ER 09:19
DX: I10 Essential (primary) hypertension (principal); G89.29 Other chronic pain; M54.41 Lumbago with sciatica, right side; E11.9 Type 2 diabetes mellitus without complications; E78.5 Hyperlipidemia, unspecified; Z79.01 Long term (current) use of anticoagulants; Z79.4 Long term (current) use of insulin; Z79.899 Other long term (current) drug therapy; Z86.718 Personal history of other venous thrombosis and embolism; Z88.5 Allergy status to narcotic agent
CPT/HCPCS: 72100

== ENCOUNTER 2024-12-13 08:55 | Emergency (ER) | payer MEDICAID ==
[~2024-12-13] VITALS: Ht 188 cm; Wt 126.0 kg
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
--- NOTE | 2024-12-13 10:04 | DVH ---
INDICATION: PAIN S/P FALL TECHNIQUE: 4 views of the lumbar spine were obtained. COMPARISON: XY LUMBAR SPINE 3 VIEW on DOS: 11/10/24, LUMBAR SPINE LTD on DOS: 06/27/22, LUMB2 on DOS: FINDINGS: There are no acute fractures or subluxations. Lumbar spinal fixation hardware at L4-L5. Tilted IVC filter in-situ. Neural foraminal stenosis at L5-S1. IMPRESSION: No acute fracture or subluxation.
--- NOTE | 2024-12-13 10:15 | DVH ---
CT HEAD WITHOUT CONTRAST INDICATION: FALL EXAM DATE: 12/13/2024 09:40 AM COMPARISON: None RADIATION DOSE: CTDIvol: 66.6 mGy, DLP: 1195.7 mGy*cm PROCEDURE: CT scans of the head were obtained from the vertex to the skull base. Sagittal and coronal reconstructions were provided. All CT scans at this medical facility are performed using dose modulation techniques as appropriate t o a performed exam including the following: Automated exposure control was utilized; adjustment of th e MA and/or KV according to patient size; and use of iterative reconstruction technique. FINDINGS: There is sulcal and ventricular prominence. The brainshows normal morphology and coon-whi te matter differentiation, without intracranial hemorrhage, extra-axial fluid collection, mass effect or acute large vessel infarct. The ventricles are normal in size. The basal cisterns are patent. The skull and visible facial bones are intact. The paranasal sinuses, mastoid air cells and middle ear c avities are well-aerated. The soft tissues of the scalp are unremarkable. IMPRESSION: No acute intracranial abnormality.
[2024-12-13 10:29] VITALS: TEMP 97.7
[2024-12-13] MEDS: ONDANSETRON ODT 4 MG TAB PO ONE (10:33)
[2024-12-13] MEDS: HYDROmorphone HCL 2 MG/ML VL/or syr IM ONE (10:35)
[2024-12-13 10:36] VITALS: O2SAT 99
[2024-12-13 11:02] VITALS: BP 116/71; PULSE 86; RESP 18
== END 2024-12-13 11:04 | disposition home or self-care (01) ==
LOC: ER 08:55
DX: G44.319 Acute post-traumatic headache, not intractable (principal); M51.369 Other intervertebral disc degeneration, lumbar region without mention of lumbar back pain or lower extremity pain; G89.29 Other chronic pain; M54.50 Low back pain, unspecified; E11.9 Type 2 diabetes mellitus without complications; I10 Essential (primary) hypertension; Z79.899 Other long term (current) drug therapy; Z88.5 Allergy status to narcotic agent
CPT/HCPCS: 70450; 72100; 96372; 99285; J1171; Q0162

== ENCOUNTER 2025-01-05 08:15 | Inpatient (IN) | payer MEDICAID ==
[~2025-01-05] VITALS: Ht 188 cm; Wt 133.1 kg
--- NOTE | 2025-01-05 08:47 | ED.PDOC ---
Musculoskeletal HPI Comments 54 y/o M, with PMHx of DVT's, HTN, HLD, and DM presents to the ED for CC of left lower extremity pain. Patient states, he has been experiencing left-knee pain following twisting it yesterday (01/04/25). Patient denies head injury, loss of consciousness, abrasions, or lacerations. No other symptoms or modifying factors are present at this time. Chief Complaint: Lower Extremity Time Seen by MD: 08:40 Primary Care Provider: ASHLYN Reviewed Notes: Nurses Notes, Medications, Allergies Allergies: Coded Allergies: Morphine (Verified Allergy, Severe, 09/05/16) Home Meds Active Scripts Enoxaparin Sodium (Lovenox) 150 Mg/1 Ml Ij, 130 MG SC Q12HR for 14 Days, #28 INJ Prov:NANCY RIVERA MD 09/22/24 Lidocaine (LIDODERM 5% TOPICAL PATCH) 1 Patch Ph, 1 PATCH TOP DAILY PRN, #30 PATCH 1 Refill Prov:JADE ORTEGA PROGRAM ADMIN 06/27/22 Reported Medications Hydroxyzine HCl (Hydroxyzine Hydrochloride) 50 Mg Tab, 1 TAB PO BID 08/13/24 Losartan Potassium (Losartan Potassium) 100 Mg Tab, 1 TAB PO DAILY 08/13/24 Amlodipine Besylate (Amlodipine Besylate) 10 Mg Tab, 1 TAB PO DAILY 08/13/24 Oxycodone HCl (Oxycodone Hydrochloride) 10 Mg Tab, 10 MG PO TIDPRN PRN, TAB 08/13/24 Metoprolol Succinate (Metoprolol Succinate Er) 25 Mg Tab, 1 TAB PO DAILY 08/13/24 Warfarin Sodium (Warfarin Sodium) 10 Mg Tab, 1 TAB PO DAILY 08/13/24 Insulin Glargine (Lantus) 100 Unit/Ml Inj, 38 UNIT SC BID, INJ 12/28/17 Gemfibrozil (Gemfibrozil) 600 Mg Tab, #60 11/26/15 Lisinopril (Lisinopril) 10 Mg Tab, #30 11/26/15 Information Source: Patient Mode of Arrival: Ambulatory Location: Left Extremity Location: Knee Timing: Hours Prehospital treatment: None Severity: Moderate Able to Move Extremity: Yes Bear Weight: Limited Pain: Moderate Mechanism: Twisting Onset of Symptoms: After Trauma Symptoms: Pain DVT Risk Factors: NONE Last Tetanus: Unknown Associated signs and symptoms: Knee pain Past Medical History PAST MEDICAL HISTORY: DM, High Lipids, HTN Surgical History: Denies all surgeries Family History Family History: Reviewed,noncontributory to illness, Unknown, Family hx of HTN Social History Smoker: Non-Smoker Alcohol: Denies ETOH Use Drugs: Denies Drug Use Lives In: Home Constitutional: denies: chills, diaphoresis, fatigue, fever, malaise, sweats, weakness, others EENTM: denies: blurred vision, double vision, ear bleeding, ear discharge, ear drainage, ear pain, ear ringing, eye pain, eye redness, hearing loss, mouth pain, mouth swelling, nasal discharge, nose bleeding, nose congestion, nose jacinta n, photophobia, tearing, throat pain, throat swelling, voice changes, others Respiratory: denies: cough, hemoptysis, orthopnea, SOB at rest, shortness of breath, SOB with excertion, stridor, wheezing, others Cardiovascular: denies: chest pain, dizzy spells, diaphoresis, Dyspnea on exertion, edema, irregular heart beat, left arm pain, lightheadedness, palpitations, PND, syncope, others Gastrointestinal: denies: abdomen distended, abdominal pain, blood streaked bowels, constipated, diarrhea, dysphagia, difficulty swallowing, hematemesis, melena, nausea, poor appetite, poor fluid intake, rectal bleeding, rectal pain, vomiting, others Genitourinary: denies: burning, dysuria, flank pain, frequency, hematuria, incontinence, penile discharge, penile sore, pain, testicle pain, testicle swelling, urgency, others Neurological: denies: dizziness, fainting, headache, left sided numbness, left sided weakness, numbness, paresthesia, pre-existing deficit, right sided numbness, right sided weakness, seizure, speech problems, tingling, tremors, weakness, others Musculoskeletal: reports: others (KNEE PAIN); denies: back pain, gout, joint pain, joint swelling, muscle pain, muscle stiffness, neck pain Integumetry: denies: bruises, change in color, change in hair/nails, dryness, laceration, lesions, lumps, rash, wounds, others Allergic/Immunocompromised: denies: Difficulty Healing, Frequent Infections, Hives, Itching, others Hematologic/Lymphatic: denies: anemia, blood clots, easy bleeding, easy bruising, swollen glands, others Endocrine: denies: excessive hunger, excessive sweating, excessive thirst, excessive urination, flushing, intolerance to cold, intolerance to heat, unexplained weight gain, unexplained weight loss, others Psychiatric: denies: anxiety, bipolar disorder, depression, hopeless, panic disorder, schizophrenia, sleepless, suicidal, others All Other Systems: Reviewed and Negative Physical Exam General Appearance: Moderate Distress HEENT: Normal ENT Inspection, Pharynx Normal, TMs Normal Neck: Full Range of Motion, Non-Tender, Normal, Normal Inspection Respiratory: Chest Non-Tender, Lungs Clear, No Accessory Muscle Use, No Respiratory Distress, Normal Breath Sounds Cardiovascular: No Edema, No JVD, No Murmur, No Gallop, Normal Peripheral Pulses, Regular Rate/Rhythm Breast Exam: Deferred Gastrointestinal: No Organomegaly, Non Tender, No Pulsatile Mass, Normal Bowel Sounds, Soft Genitalia: Deferred Pelvic: Deferred Rectal: Deferred Extremities: Tender (Left knee) Musculoskeletal : Apperance: Normal Neurologic: Alert, No Motor Deficits, No Sensory Deficits Cerebellar Function: NOT DONE Reflexes: NOT DONE Skin: Dry, Normal Color, Warm Peripheral Pulses: 3+ Radial (R), 3+ Radial (L) Lymphatic: No Adenopathy Was a procedure done? Was a procedure done?: No Differential Diagnosis EXT Differential Diagnosis: Deep Vein Thrombosis, Sprain, Strain X-Ray, Labs, Meds, VS Vital Signs Date Time Temp Pulse Resp B/P (MAP) Pulse Ox O2 Delivery O2 Flow Rate FiO2 01/05/25 08:51 83 16 96 Room Air 01/05/25 08:51 98.1 83 19 136/86 (103) 96 98.1 01/05/25 08:18 98.0 98 15 155/106 99 98.0 Lab Test 01/05/25 11:20 Range/Units White Blood Count 4.6 4.4-10.8 10^3/uL Red Blood Count 4.87 4.5-5.90 10^6/uL Hemoglobin 15.2 13.5-17.5 g/dL Hematocrit 43.1 41.0-53.0 % Mean Corpuscular Volume 88.5 80.0-100.0 fL Mean Corpuscular Hemoglobin 31.3 28.0-32.0 pg Mean Corpuscular Hemoglobin Concent 35.4 32.0-36.0 g/dL Red Cell Distribution Width 13.6 11.8-14.3 % Platelet Count 238 140-450 10^3/uL Mean Platelet Volume 7.7 6.9-10.8 fL Neutrophils (%) (Auto) 67.7 37.0-80.0 % Lymphocytes (%) (Auto) 23.7 10.0-50.0 % Monocytes (%) (Auto) 7.0 0.0-12.0 % Eosinophils (%) (Auto) 0.9 0.0-7.0 % Basophils (%) (Auto) 0.7 0.0-2.0 % Neutrophils # (Auto) 3.1 1.6-8.6 10 ^3/uL Lymphocytes # (Auto) 1.1 0.4-5.4 10 ^3/uL Monocytes # (Auto) 0.3 0-1.3 10 ^3/uL Eosinophils # (Auto) 0 0-0.8 10 ^3/uL Basophils # (Auto) 0 0-0.2 10 ^3/uL Nucleated Red Blood Cells 0.1 % Sodium Level 141 136-145 mmol/L Potassium Level 4.0 3.5-5.1 mmol/L Chloride Level 106 98-107 mmol/L Carbon Dioxide Level 26 20-31 mmol/L Anion Gap 9 5-15 Blood Urea Nitrogen 16 9-23 mg/dL Creatinine 0.98 0.700-1.30 mg/dL Glomerular Filtration Rate Calc 93 >90 mL/min BUN/Creatinine Ratio 16.3 10.0-20.0 Serum Glucose 164 H 74-106 mg/dL Calcium Level 9.6 8.7-10.4 mg/dL Troponin I High Sensitivity 5 </=54 ng/L Patient alert. Vitals stable. Varicose veins on the left lower extremity. Answering questions. Was recently discharged from this hospital. Reviewed his previous visit. DVT study show new clot. Radiology consultation. He will benefit from the procedure. He is on blood thinner. Explained to the patient. Continue monitoring. [address] [address] Ph: [phone] DIAGNOSTIC IMAGING Diagnostic Imaging Report : [id number] Signed PATIENT: PANCHO JASMINE ACCT: [id number] UNIT: [id number] : 1970 LOC: ER ROOM / BED: / AGE / SEX: 54 / M ADM STATUS: REG ER SERVICE 1024 ORDERING PHYSICIAN: LUCIA DUNBAR MD PROCEDURE(s): LKNE2 - L KNEE 2V XRAY REASON: pain ORDER NUMBER(s): [id number], ACCESSION NUMBER(s): [id number] XY L KNEE 2V XRAY, INDICATION: pain TECHNICAL DATA: Frontal , and lateral views were obtained of the left knee. COMPARISON: None FINDINGS: No fracture is identified. Medial, lateral and patellofemoral compartment joint spaces are maintained. Alignment is anatomic. Soft tissues are within normal limits. No joint effusion is demonstrated. IMPRESSION: No acute fracture or dislocation of the left knee. ATED BY: LIAM CONCEPCION MD DICTATED DATE/TIME: 01/05/251046 SIGNED BY: LIAM CONCEPCION MD SIGNED DATE/TIME: 01/05/251046 CC: [place] [address] Ph: [phone] DIAGNOSTIC IMAGING Diagnostic Imaging Report : [id number] Signed PATIENT: PANCHO JASMINE ACCT: [id number] UNIT: [id number] : 1970 LOC: ER ROOM / BED: / AGE / SEX: 54 / M ADM STATUS: REG ER SERVICE 1024 ORDERING PHYSICIAN: LUCIA DUNBAR MD PROCEDURE(s): LLDVT - LT Lower DVT REASON: dvt ORDER NUMBER(s): [id number], ACCESSION NUMBER(s): [id number] CLINICAL HISTORY: dvt TECHNIQUE: Color and duplex doppler imagine of the left lower extremity veins was performed. Vessel compression if possible was also performed. COMPARISON: US BILAT LOWER DVT on DOS: 09/20/24, US LT LOWER DVT on DOS: 08/13/24, US LT LOWER DVT on DOS: 08/07/23, US LT LOWER DVT on DOS: 05/02/23, US LT LOWER DVT on DOS: 04/09/23 FINDINGS: Left common femoral vein: Non occlusive thrombus. Left superficial femoral vein: Loops of thrombus at its mid segment. Left popliteal vein: Normal compressibility and flow. IMPRESSION: Non occlusive thrombus within the left common femoral And left superficial femoral veins. These findings were given to dr dunbar by business intelligence engineer obvious 2024. ATED BY: IRVING PEDROZA MD DICTATED DATE/TIME: 01/05/25 1120 SIGNED BY: IRVING PEDROZA MD SIGNED DATE/TIME: 01/05/25 1120 CC: [place] [id number] Ph: [phone] DIAGNOSTIC IMAGING Diagnostic Imaging Report : [id number] Signed PATIENT: PANCHO JASMINE ACCT: [id number] UNIT: [id number] : 1970 LOC: ER ROOM / BED: / AGE / SEX: 54 / M ADM STATUS: REG ER SERVICE 1112 ORDERING PHYSICIAN: LUCIA DUNBAR MD PROCEDURE(s): CXRP - CHEST PORTABLE REASON: sob ORDER NUMBER(s): [id number], ACCESSION NUMBER(s): [id number] CLINICAL HISTORY: sob TECHNIQUE: Single view of the chest was obtained. COMPARISON: CT CT ANGIO CHEST CONTRAST on DOS: 09/20/24, XY CHEST PORTABLE on DOS: 09/20/24, XY CHEST XRAY 1 VIEW on DOS: 08/13/24, CT CT ANGIO CHEST CONTRAST on DOS: 08/07/23, XY CHEST TWO VIEWS ROUTINE on DOS: 08/07/23 FINDINGS: The heart size and pulmonary vasculature are normal. The lungs are clear. IMPRESSION: NO ACUTE CARDIOPULMONARY PROCESS. ATED BY: IRVING PEDROZA MD DICTATED DATE/TIME: 01/05/25 1144 SIGNED BY: IRVING PEDROZA MD SIGNED DATE/TIME: 01/05/25 1144 CC: Time of 1ST Reevaluation: 09:10 Reevaluation 1ST: Unchanged Patient Education/Counseling: Diagnosis, Treatment Family Education/Counseling: No Family Present Departure 1 Departure Time of Disposition: 10:23 Impression: Primary Impression: Left leg DVT Qualified Codes: I82.412 - Acute embolism and thrombosis of left femoral vein Additional Impression: Strain of ligament Disposition: ADMITTED INPATIENT Admit to: Med Surg Condition: Guarded Critical Care Note Critical Care Time?: Yes (90 min-critical care time only) Stability Stability form required: No Heart Score Heart Score: Heart Score Response (Comments) Value History N/A 0 EKG N/A 0 Age N/A 0 Risk Factors N/A 0 Troponin N/A 0 Total 0 I personally scribed for LUCIA DUNBAR MD ([email or web address]) on 01/05/25 at 08:47. Electronically submitted by Reshma Oreilly ([employer]). I personally scribed for LUCIA DUNBAR MD ([email or web address]) on 01/05/25 at 08:56. Electronically submitted by Reshma Oreilly ([employer]). I personally scribed for LUCIA DUNBAR MD ([email or web address]) on 01/05/25 at 12:35. Electronically submitted by Reshma Oreilly ([employer]). I personally scribed for LUCIA DUNBAR MD ([email or web address]) on 01/05/25 at 12:36. E lectronically submitted by Reshma Oreilly ([employer]). I personally scribed for LUCIA DUNBAR MD ([email or web address]) on 01/05/25 at 12:37. Electronically submitted by Reshma Oreilly ([employer]). LUCIA DUNBAR MD Jan 05, 2025 08:47
--- NOTE | 2025-01-05 10:49 | DVH ---
XY L KNEE 2V XRAY, INDICATION: pain TECHNICAL DATA: Frontal , and lateral views were obtained of the left knee. COMPARISON: None FINDINGS: No fracture is identified. Medial, lateral and patellofemoral compartment joint spaces are maintained . Alignment is anatomic. Soft tissues are within normal limits. No joint effusion is demonstrated. IMPRESSION: No acute fracture or dislocation of the left knee.
--- NOTE | 2025-01-05 11:22 | DVH ---
CLINICAL HISTORY: dvt TECHNIQUE: Color and duplex doppler imagine of the left lower extremity veins was performed. Vessel c ompression if possible was also performed. COMPARISON: US BILAT LOWER DVT on DOS: 09/20/24, US LT LOWER DVT on DOS: 08/13/24, US LT LOWER DVT on DO S: 08/07/23, US LT LOWER DVT on DOS: 05/02/23, US LT LOWER DVT on DOS: 04/09/23 FINDINGS: Left common femoral vein: Non occlusive thrombus. Left superficial femoral vein: Loops of thrombus at its mid segment. Left popliteal vein: Normal compressibility and flow. IMPRESSION: Non occlusive thrombus within the left common femoral And left superficial femoral veins. These findings were given to dr dunbar by rackman 2024.
[2025-01-05 11:41] LABS: Hematocrit 43.1 % (41.0-53.0); Hemoglobin 15.2 g/dL (13.5-17.5); Mean Corpuscular Hemoglobin 31.3 pg (28.0-32.0); Mean Corpuscular Volume 88.5 fL (80.0-100.0); Nucleated Red Blood Cells % 0.1 %
[2025-01-05 11:43] LABS: Chloride 106 mmol/L (98-107); Potassium 4.0 mmol/L (3.5-5.1); Sodium 141 mmol/L (136-145)
[2025-01-05 11:44] LABS: Anion Gap 9 (5-15); Carbon Dioxide 26 mmol/L (20-31)
[2025-01-05 11:45] LABS: Calcium 9.6 mg/dL (8.7-10.4)
--- NOTE | 2025-01-05 11:46 | DVH ---
CLINICAL HISTORY: sob TECHNIQUE: Single view of the chest was obtained. COMPARISON: CT CT ANGIO CHEST CONTRAST on DOS: 09/20/24, XY CHEST PORTABLE on DOS: 09/20/24, XY CHEST X RAY 1 VIEW on DOS: 08/13/24, CT CT ANGIO CHEST CONTRAST on DOS: 08/07/23, XY CHEST TWO VIEWS ROUTINE on D OS: 08/07/23 FINDINGS: The heart size and pulmonary vasculature are normal. The lungs are clear. IMPRESSION: NO ACUTE CARDIOPULMONARY PROCESS.
[2025-01-05 11:50] LABS: BUN/Creatinine Ratio 16.3 (10.0-20.0); Blood Urea Nitrogen 16 mg/dL (9-23); Glucose 164 mg/dL (74-106)
[2025-01-05] MEDS ORDERED: HEPARIN DRIP/D5W 100UNITS/ML 250 ML IV SCH (12:45)
[2025-01-05] MEDS ORDERED: DEXTROSE (50%) 50ML SYRG IV PRN (12:45)
[2025-01-05] MEDS ORDERED: hydrALAZINE HCL 20 MG/ML VL IV PRN (12:45)
--- NOTE | 2025-01-05 12:49 | DVHHP2 ---
History of Present Illness Reason for Visit: Left knee pain History of Present Illness 54-year-old male with a past medical history of chronic DVT, PE, on chronic anticoagulation with Coumadin, s/p IVC filter placement, hypertension, diabetes mellitus, hyperlipidemia, obesity, and chronic pain presents to the emergency department with a one day history of left knee pain. He reports that the pain started suddenly without clear trauma and is localized to the left knee. He denies redness, warmth, or swelling at the onset. He also denies shortness of breath, chest pain, or difficulty in breathing. In the ED, a venous duplex ultrasound of the left lower extremity revealed nonocclusive thrombus in the left common femoral and left superficial femoral veins. Left knee x-ray showed no acute fracture or dislocation. Past Medical History As stated in HPI Past Surgical History IVC filter Family History Reviewed, non-contributory to the management of this case. Past Social History The patient lives at home, denies smoking, alcohol or illicit drugs abuse. Review of Systems Constitutional: Yes: Malaise; No: Fever, Chills, Sweats, Weakness, Other Eyes: No: Pain, Vision change, Conjunctivae inflammation, Eyelid inflammation, Other, Redness ENT: No: Ear pain, Ear discharge, Nose pain, Nose discharge, Nose congestion, Mouth pain, Mouth swelling, Throat pain, Throat swelling, Other Respiratory: No: Cough, Dry, Shortness of breath, SOB with excertion, Wheezing, Hemoptysis, Pleuritic Pain, Sputum, Wheezing, Other Cardiovascular: No: Chest Pain, Palpitations, Orthopnea, Paroxysmal Noc. Dyspnea, Edema, Lt Headedness, Other Gastrointestinal: No: Nausea, Vomiting, Abdominal Pain, Diarrhea, Constipation, Melena, Hematochezia, Other Genitourinary: No Dysuria, No Frequency, No Incontinence, No Hematuria, No Retention, No Other Musculoskeletal: other (Left knee pain) Skin: No: Rash, Lesions, Jaundice, Bruising, Other Allergies: Coded Allergies: Morphine (Verified Allergy, Severe, 09/05/16) Exam Vital Signs Vital Signs Date Time Temp Pulse Resp B/P (MAP) Pulse Ox O2 Delivery O2 Flow Rate FiO2 01/05/25 08:51 83 16 96 Room Air 01/05/25 08:51 98.1 136/86 (103) 98.1 General Appearance: Alert, Oriented X3, Cooperative, mild distress HEENT: Atraumatic, PERRLA, EOMI Respiratory: Clear to auscultation, Normal air movement Cardiovascular: Regular rate, Normal S1, Normal S2 Abdominal: Normal bowel sounds, Soft, No tenderness Extremities: No clubbing, No cyanosis, No edema, Other (Left knee without deformity, no warmth or edema, mild tenderness to palpation. No calf swelling. Duplex ultrasound positive for non occlusive thrombus in the left common femoral and superficial femoral veins) Skin: No rashes Labs/Xrays Labs Test 01/05/25 11:20 Range/Units White Blood Count 4.6 4.4-10.8 10^3/uL Red Blood Count 4.87 4.5-5.90 10^6/uL Hemoglobin 15.2 13.5-17.5 g/dL Hematocrit 43.1 41.0-53.0 % Mean Corpuscular Volume 88.5 80.0-100.0 fL Mean Corpuscular Hemoglobin 31.3 28.0-32.0 pg Mean Corpuscular Hemoglobin Concent 35.4 32.0-36.0 g/dL Red Cell Distribution Width 13.6 11.8-14.3 % Platelet Count 238 140-450 10^3/uL Mean Platelet Volume 7.7 6.9-10.8 fL Neutrophils (%) (Auto) 67.7 37.0-80.0 % Lymphocytes (%) (Auto) 23.7 10.0-50.0 % Monocytes (%) (Auto) 7.0 0.0-12.0 % Eosinophils (%) (Auto) 0.9 0.0-7.0 % Basophils (%) (Auto) 0.7 0.0-2.0 % Neutrophils # (Auto) 3.1 1.6-8.6 10 ^3/uL Lymphocytes # (Auto) 1.1 0.4-5.4 10 ^3/uL Monocytes # (Auto) 0.3 0-1.3 10 ^3/uL Eosinophils # (Auto) 0 0-0.8 10 ^3/uL Basophils # (Auto) 0 0-0.2 10 ^3/uL Nucleated Red Blood Cells 0.1 % Sodium Level 141 136-145 mmol/L Potassium Level 4.0 3.5-5.1 mmol/L Chloride Level 106 98-107 mmol/L Carbon Dioxide Level 26 20-31 mmol/L Anion Gap 9 5-15 Blood Urea Nitrogen 16 9-23 mg/dL Creatinine 0.98 0.700-1.30 mg/dL Glomerular Filtration Rate Calc 93 >90 mL/min BUN/Creatinine Ratio 16.3 10.0-20.0 Serum Glucose 164 H 74-106 mg/dL Calcium Level 9.6 8.7-10.4 mg/dL Troponin I High Sensitivity 5 </=54 ng/L PROCEDURE(s): LLDVT - LT Lower DVT REASON: dvt ORDER NUMBER(s): [id number], ACCESSION NUMBER(s): [id number] CLINICAL HISTORY: dvt TECHNIQUE: Color and duplex doppler imagine of the left lower extremity veins was performed. Vessel compression if possible was also performed. COMPARISON: US BILAT LOWER DVT on DOS: 09/20/24, US LT LOWER DVT on DOS: 08/13/24, US LT LOWER DVT on DOS: 08/07/23, US LT LOWER DVT on DOS: 05/02/23, US LT LOWER DVT on DOS: 04/09/23 FINDINGS: Left common femoral vein: Non occlusive thrombus. Left superficial femoral vein: Loops of thrombus at its mid segment. Left popliteal vein: Normal compressibility and flow. IMPRESSION: Non occlusive thrombus within the left common femoral And left superficial femoral veins. These findings were given to dr dunbar by foundation engineer 2024. SEPSIS Sepsis Screen Date sepsis recognized/suspect: Jan 05, 2025 Time Sepsis recognized/suspect: 08:19 Recent Procedure: No On Antibiotic Therapy: No Respiratory Rate >20: No Heart Rate >90: No Temp<36 C (96.8 F) or >38.3 C: No SBP <90 or MAP <65 mmHG: No New Acute Mental Status Change: No Is the patient on CPAP, BIPAP,: No Physician Orders Lt Lower Dvt (01/05/25 10:24) L Knee 2v Xray (01/05/25 10:24) * Radiologist Consult (01/05/25 11:12) Chest Portable (01/05/25 11:12) Urinalysis (01/05/25 11:12) Admit (01/05/25 12:31) Code Status (01/05/25 12:31) Ondansetron Hcl (Zofran) (01/05/25 12:45) Fall Risk Precautions In Place QSHIFT (01/05/25 12:31) Complete Blood Count (01/06/25 04:00) Comprehensive Metabolic Panel (01/06/25 04:00) Cardiac Diet-2gna,Lofat,Lochol (01/05/25 Lunch) Condition: Fair (01/05/25 12:31) Platelet Monitoring (01/05/25 12:31) Vte Protocol Initiated (01/05/25 12:31) Heparin Per Standardized Proce (01/05/25 12:31) Discontinue All Im Injections (01/05/25 12:31) PTPTT (01/05/25 12:31) Complete Blood Count (01/05/25 12:31) Heparin Drip/D5w 100units/Ml (01/05/25 12:45) Glucose Blood (Accu-Chek Comfort Curve T (01/05/25 17:00) Mild Sliding Scale (01/05/25 17:00) Dextrose 50% Syringe (01/05/25 12:45) Vital Signs Date Time Temp Pulse Resp B/P (MAP) Pulse Ox O2 Delivery O2 Flow Rate FiO2 01/05/25 08:51 83 16 96 Room Air 01/05/25 08:51 98.1 83 19 136/86 (103) 96 98.1 01/05/25 08:18 98.0 98 15 155/106 99 98.0 Laboratory Tests Test 01/05/25 11:20 White Blood Count 4.6 10^3/uL (4.4-10.8) Assessment/Plan Assessment/Plan #Acute left lower extremity DVT # hx of DVT on Coumadin # presence of IVC filter * Admit to medical unit * Heparin gtt for DVT # acute left knee pain, sprain * Negative for fracture based on left knee x-ray * Pain control * Consider MRI if symptoms does not improve # DM, well-controlled * Insulin sliding scale # hypertension * Continue with antihypertensive medication # hyperlipidemia * Continue with lipid lowering agents Plan discussed with: Patient My Orders Orders - EROS HAMILTON STRATIGRAPHER Procedure Category Date Status Time Admit ADMIT 01/05/25 Transmitted 12:31 Code Status CODE 01/05/25 Transmitted 12:31 Ondansetron Hcl PHA 8/31/25 Transmitted (Zofran) 12:45 Fall Risk Precautions [facility] 01/05/[address] 12:31 Complete Blood Count LAB 01/06/25 Verified 04:00 Comprehensive LAB 01/06/25 Verified Metabolic Panel 04:00 Cardiac DIET 01/05/25 Transmitted Diet-2gna,Lofat,Lochol Lunch Condition: Fair [facility] 01/05/25 Transmitted 12:31 Platelet Monitoring [facility] 01/05/25 Transmitted 12:31 Vte Protocol Initiated [facility] 01/05/25 Transmitted 12:31 Heparin Per [facility] 01/05/25 Transmitted Standardized Proce 12:31 Discontinue All Im [facility] 01/05/25 Transmitted Injections 12:31 PTPTT LAB 01/05/25 Transmitted 12:31 Complete Blood Count LAB 01/05/25 Transmitted 12:31 Heparin Drip/D5w PHA 01/05/25 Transmitted 100units/Ml 12:[address] [facility] 01/05/25 Transmitted (Accu-Chek Comfort 17:00 Mild Sliding Scale PHA 01/05/25 Transmitted 17:00 Dextrose 50% Syringe PHA 01/05/25 Transmitted 12:45 Date of Service: Jan 05, 2025 Billing Provider: EROS HAMITLON Common Visit Codes: [id number] INP/OBS CARE (HIGH) Consultation Codes: [id number] CONSULT <45MIN EROS HAMILTON Jan 05, 2025 12:49
[2025-01-05 13:41] LABS: Hematocrit 43.1 % (41.0-53.0); Hemoglobin 15.1 g/dL (13.5-17.5); Mean Corpuscular Hemoglobin 31.0 pg (28.0-32.0); Mean Corpuscular Volume 88.9 fL (80.0-100.0); Nucleated Red Blood Cells % 0.1 %
[2025-01-05 13:48] LABS: INR 3.14 (0.9-1.15); Partial Thromboplastin Time 52.2 SEC (24.5-34.5); Prothrombin Time 29.7 sec (9.3-11.8)
[2025-01-05] MEDS: HYDROmorphone HCL 2 MG/ML VL/or syr IV PRN ×2 (14:28→18:10)
[2025-01-05 14:44] VITALS: PULSE 88; RESP 23; O2SAT 95
--- NOTE | 2025-01-05 15:10 | CONS ---
Pharmacy Clinical Information: BASELINE APTT = 52.2, INR = 3.14 PATIENT WAS ON WARFARIN AT HOME HOLDING HEPARIN DRIP UNTIL INR < 2 PT/INR ORDERED FOR 9/ AM PER PROTOCOL HPIOLITO AREVALO PHARMACIST Jan 05, 2025 15:10
[2025-01-05 15:47] VITALS: BP 134/90; PULSE 78; RESP 18; TEMP 97.9
[2025-01-05] MEDS: ACCU-CHEK COMFORT CURVE STRIP VI SCH (17:00)
[2025-01-05] MEDS: InsuLIN REG 1unit/0.01ml Soln (100units/ml) SC SCH (17:00)
[2025-01-05] MEDS: hydrOXYzine 25 MG TAB or CAP PO SCH (22:00)
[2025-01-06] VITALS (7 sets, daily range): BP systolic 122–159; BP diastolic 72–98; PULSE 77–85; RESP 19–20; TEMP 97.8–98.3; O2SAT 92–97
[2025-01-06 04:52] LABS: Hematocrit 40.5 % (41.0-53.0); Hemoglobin 14.2 g/dL (13.5-17.5); Mean Corpuscular Hemoglobin 31.1 pg (28.0-32.0); Mean Corpuscular Volume 88.9 fL (80.0-100.0); Nucleated Red Blood Cells % 0.0 %
[2025-01-06 04:59] LABS: Alanine Aminotransferase 24 U/L (7-40); Alkaline Phosphatase 71 U/L (46-116); Anion Gap 7 (5-15); BUN/Creatinine Ratio 14.9 (10.0-20.0); Blood Urea Nitrogen 15 mg/dL (9-23); Calcium 9.3 mg/dL (8.7-10.4); Carbon Dioxide 30 mmol/L (20-31); Chloride 104 mmol/L (98-107); Potassium 3.9 mmol/L (3.5-5.1); Sodium 141 mmol/L (136-145); Total Protein 7.1 g/dL (5.7-8.2)
[2025-01-06 05:00] LABS: Albumin 4.6 g/dL (3.2-4.8); Bilirubin, Total 0.7 mg/dL (0.2-1.0)
[2025-01-06 05:01] LABS: Glucose 117 mg/dL (74-106)
[2025-01-06 05:04] LABS: INR 2.59 (0.9-1.15); Partial Thromboplastin Time 47.7 SEC (24.5-34.5); Prothrombin Time 25.0 sec (9.3-11.8)
[2025-01-06] MEDS: METOPROLOL SUCCINATE XL 50 MG TAB PO SCH (10:23)
[2025-01-06] MEDS: LOSARTAN POTASSIUM 50 MG TAB PO SCH (10:24)
[2025-01-06] MEDS: GEMFIBROZIL 600 MG TAB PO SCH (10:26)
--- NOTE | 2025-01-06 14:38 | DVHPNRES ---
Progress Note Date Seen: Jan 06, 2025 Resident Creating Document: PB GARCIA RESIDENT Medical Necessity Reason Pt with a Central, PICC or Fol: No Subjective Review of Systems This is a 54-year-old male with a past medical history of chronic DVT, PE on chronic anticoagulation with warfarin s/p IVC filter placement, hypertension, diabetes mellitus, hyperlipidemia, obesity and chronic pain presented to the ED with a complaint of left knee pain since 1 day. The patient mentions that he misstepped and twisted his left knee, resulting in sharp, shock-like pain. He denies shortness of breath or chest pain. Patient states that he feels like he has torn a ligament. In the ED, we next duplex ultrasound of the left lower extremity showed nonocclusive thrombus in the left common femoral and left superficial veins. Left knee x-ray showed no acute fracture or dislocation. Past medical history: Diabetes mellitus type 2 and hypertension since 20 years, chronic DVT, PE, hyperlipidemia, obesity, chronic pain Past surgical history: IVC filter placement Social & Personal history: Lives at home Smoking: Denies Alcohol: Denies Drugs: Denies Allergies: Coded Allergies: Morphine (Verified Allergy, Severe, 09/05/16) Patient seen and examined at bedside. Patient is alert and oriented to time, place person and responding to all questions. Complains of left knee pain. Eyes: No Pain, No Vision change, No Conjunctivae inflammation, No Eyelid inflammation, No Redness ENT: No Ear pain, No Ear discharge, No Nose pain, No Nose discharge, No Nose congestion, No Mouth pain, No Mouth swelling, No Throat pain, No Throat swelling Cardiovascular: No Chest Pain, No Palpitations, No Orthopnea, No Paroxysmal No Dyspnea, No Edema, No Lt Headedness Respiratory: No Cough, No Dry, No Shortness of breath, No SOB with exertion, No Wheezing, No Hemoptysis, No Pleuritic Pain, No Sputum Gastrointestinal: No Nausea, No Vomiting, No Abdominal Pain, No Diarrhea, No Constipation, No Melena, No Hematochezia Genitourinary: No Dysuria, No Frequency, No Incontinence, No Hematuria, No Retention Objective vital signs Vital Sign Date Time Temp Pulse Resp B/P (MAP) Pulse Ox O2 Delivery O2 Flow Rate FiO2 01/06/25 10:27 158/98 01/06/25 10:23 78 01/06/25 09:19 18 01/06/25 05:00 98.0 97 98.0 01/05/25 14:44 Room Air* 0 21 Total Intake and Output 01/05/25 01/05/25 01/06/25 15:00 23:00 07:00 Intake Total 200 ml Balance 200 ml medications Current Medications Medications Dose Ordered Sig/Rebecca Route Start Time Stop Time Status Last Admin Dose Admin Ondansetron HCl 4 mg Q4HP PRN IV 01/05/25 12:45 Diagnostic Test (Pha) 1 strip ACHS 01/05/25 17:00 01/06/25 12:08 1 STRIP Insulin Human Regular ACHS SC 01/05/25 17:00 01/05/25 21:59 2 UNITS Dextrose 50 ml UD PRN IV 01/05/25 12:45 Hydromorphone HCl 0.5 mg Q4HPRN PRN IV 01/05/25 12:45 Hold 01/05/25 14:28 0.5 MG Hydromorphone HCl 1 mg Q4HPRN PRN IV 01/05/25 12:45 01/06/25 08:49 1 MG Hydralazine HCl 10 mg Q6HP PRN IV 01/05/25 12:45 Gemfibrozil 600 mg DAILY PO 01/06/25 10:00 01/06/25 10:26 600 MG Amlodipine Besylate 10 mg DAILY PO 01/06/25 10:00 01/06/25 10:27 10 MG Hydroxyzine Pamoate 50 mg BID PO 01/05/25 22:00 01/06/25 10:26 50 MG Losartan Potassium 100 mg DAILY PO 01/06/25 10:00 01/06/25 10:24 100 MG Metoprolol Succinate 25 mg DAILY PO 01/06/25 10:00 01/06/25 10:23 25 MG Oxycodone HCl 10 mg Q8HP PRN PO 01/05/25 18:00 01/05/25 20:21 10 MG Heparin Sodium/ Dextrose 250 ml @ 20 mls/hr [id number] IV 01/05/25 15:15 Hold Examination General Appearance: Cooperative. Well developed. Well nourished. NAD Head Exam: Normal inspection Neck Exam: Normal inspection. Non-tender. Normal alignment Pulmonary/Respiratory: Chest non-tender. Clear bilateral breath sounds, no crackles, no wheezing. Cardiovascular/Chest: Regular rate and rhythm. No murmurs. No JVD. Peripheral Pulses: 2+ Radial (R). 2+ Radial (L). 2+ Pedal (R). 2+ Pedal (L) Abdominal Exam: Normal bowel sounds. Soft. normal abdomen, no visible veins, Nontender. No hepatospenomegaly. No masses Ankle Exam: Negative ankle edema Lower extremities: Multiple dilated, engorged superficial veins in the left lower extremity , old scar jamel from surgery on the medial aspect of the right lower extremity, no tenderness , decreased range of motion in the left knee, N egative lower extremity edema Neuro/Mental Status: A&O x4. Coherent. Thoughts/Psych: Normal thought pattern. Appropriate mood and affect. Good judgement and insight Skin Exam: Normal inspection. Normal color. Warm. Dry laboratory and microbiology Laboratory Tests 01/06/25 04:13 Test 01/06/25 04:13 Range/Units Serum Glucose 117 H 74-106 mg/dL Labs and/or images reviewed: Labs reviewed by me, Image(s) reviewed by me Problem List/Assessment/Plan Problem List/Assessment/Plan Left common femoral vein thrombosis Left Superficial femoral vein thrombosis History of DVT and PE, on warfarin s/p IVC filter History of recurrent/chronic left lower extremity DVT Venous Doppler showed nonocclusive thrombus within the left common femoral and left superficial femoral veins Start on heparin(heparin once INR reaches below 2) Left Knee sprain -conservative management -left knee x-ray showed no acute fracture or dislocation -outpatient follow-up with Orthopedic with possible MRI -PT on board Diabetes mellitus type 2, controlled -mild insulin sliding scale Essential hypertension, controlled -resume amlodipine, losartan, metoprolol Dyslipidemia -continue with lipid-lowering agent Gemfibrozil PUD prophylaxis: Not indicated DVT prophylaxis: Not indicated Goals of care: Full code, discussed for >16 minutes Plan discussed with patient Plan discussed with Dr. Ruiz Plan discussed with: Patient Date of Service: Jan 06, 2025 Billing Provider: CHRISTIANO FORD MD Common Visit Codes: [id number] INP/OBS CARE(HIGH) PB GARCIA RESIDENT Jan 06, 2025 14:38 CHRISTIANO FORD MD Jan 12, 2025 23:41
[2025-01-06 16:07] LABS: Hematocrit 42.7 % (41.0-53.0); Hemoglobin 14.7 g/dL (13.5-17.5); Mean Corpuscular Hemoglobin 30.6 pg (28.0-32.0); Mean Corpuscular Volume 88.9 fL (80.0-100.0); Nucleated Red Blood Cells % 0.0 %
[2025-01-06 16:08] LABS: Chloride 102 mmol/L (98-107); Potassium 3.9 mmol/L (3.5-5.1); Sodium 141 mmol/L (136-145)
[2025-01-06 16:09] LABS: Anion Gap 8 (5-15); Calcium 9.4 mg/dL (8.7-10.4); Carbon Dioxide 31 mmol/L (20-31)
[2025-01-06 16:13] LABS: INR 2.02 (0.9-1.15); Prothrombin Time 20.0 sec (9.3-11.8)
[2025-01-06 16:14] LABS: BUN/Creatinine Ratio 12.9 (10.0-20.0); Blood Urea Nitrogen 15 mg/dL (9-23)
[2025-01-06 16:17] LABS: Glucose 106 mg/dL (74-106)
[2025-01-06 21:51] LABS: Urine Protein, UAD Negative (Negative)
[2025-01-06 22:43] LABS: INR 1.76 (0.9-1.15); Partial Thromboplastin Time 39.4 SEC (24.5-34.5); Prothrombin Time 17.6 sec (9.3-11.8)
[2025-01-06] MEDS: HEPARIN DRIP/D5W 100UNITS/ML 250 ML IV SCH (23:57)
[2025-01-07] VITALS (8 sets, daily range): BP systolic 106–147; BP diastolic 60–88; PULSE 74–80; RESP 18–23; TEMP 97.6–98.1; O2SAT 95–100
[2025-01-07 06:23] LABS: INR 1.74 (0.9-1.15); Partial Thromboplastin Time 70.0 SEC (24.5-34.5); Prothrombin Time 17.5 sec (9.3-11.8)
--- NOTE | 2025-01-07 08:28 | CONS ---
Pharmacy Clinical Information: HEPARIN DRIP, DVT PROTOCOL @05:20 APTT 70 - NO BOLUS / NO CHANGE NEXT APTT DRAW SCHEDULED @11:30 PER RX PROTOCOL CONFIRMED AND READ BACK WITH RN STEVE MICHELLECO [facility] RESIDENT Jan 07, 2025 08:28
--- NOTE | 2025-01-07 11:02 | DVH ---
INDICATION: meniscal tear COMPARISON: XY L KNEE 2V XRAY on DOS: 01/05/25 TECHNIQUE: CT of the left knee was performed without contrast. Volume transverse images were obtained and reconstructed in multiple planes using bone and soft tissue algorithms. Radiation Dose Information: CT Dose: CTDI volume is 7.86 mGy. Dose-length product is 303.27 mGy*cm FINDINGS: The alignment is normal. The joint spaces are normal. There is no fracture, dislocation or aggressive osseous lesion. Small knee joint effusion. The soft tissues are normal. Prominent varices are present in the knee and calf. IMPRESSION: Small knee joint effusion.
[2025-01-07 12:17] LABS: INR 1.56 (0.9-1.15); Prothrombin Time 15.8 sec (9.3-11.8)
[2025-01-07 12:20] LABS: Partial Thromboplastin Time 79.6 SEC (24.5-34.5)
--- NOTE | 2025-01-07 12:43 | CONS ---
Pharmacy Clinical Information: HEPARIN DRIP, DVT PROTOCOL @7939 APTT 79.6 - NO BOLUS, DECREASE HEPARIN DRIP RATE TO 1800 UNITS/HR NEXT APTT DRAW SCHEDULED @1900 PER RX PROTOCOL CONFIRMED AND READ BACK WITH LARA MICHEL[facility]CO [facility] RESIDENT Jan 07, 2025 12:43
[2025-01-07] MEDS: HEPARIN DRIP/D5W 100UNITS/ML 250 ML IV SCH ×2 (14:42→20:27)
--- NOTE | 2025-01-07 18:22 | DVHPNRES ---
Progress Note Date Seen: Jan 07, 2025 Resident Creating Document: PB GARCIA RESIDENT Medical Necessity Reason Pt with a Central, PICC or Fol: No Subjective Review of Systems This is a 54-year-old male with a past medical history of chronic DVT, PE on chronic anticoagulation with warfarin s/p IVC filter placement, hypertension, diabetes mellitus, hyperlipidemia, obesity and chronic pain presented to the ED with a complaint of left knee pain since 1 day. The patient mentions that he misstepped and twisted his left knee, resulting in sharp, shock-like pain. He denies shortness of breath or chest pain. Patient states that he feels like he has torn a ligament. In the ED, we next duplex ultrasound of the left lower extremity showed nonocclusive thrombus in the left common femoral and left superficial veins. Left knee x-ray showed no acute fracture or dislocation. Past medical history: Diabetes mellitus type 2 and hypertension since 20 years, chronic DVT, PE, hyperlipidemia, obesity, chronic pain Past surgical history: IVC filter placement Social & Personal history: Lives at home Smoking: Denies Alcohol: Denies Drugs: Denies Allergies: Coded Allergies: Morphine (Verified Allergy, Severe, 09/05/16) Patient seen and examined at bedside. Patient is alert and oriented to time, place person and responding to all questions. Complains of left knee pain. Eyes: No Pain, No Vision change, No Conjunctivae inflammation, No Eyelid inflammation, No Redness ENT: No Ear pain, No Ear discharge, No Nose pain, No Nose discharge, No Nose congestion, No Mouth pain, No Mouth swelling, No Throat pain, No Throat swelling Cardiovascular: No Chest Pain, No Palpitations, No Orthopnea, No Paroxysmal No Dyspnea, No Edema, No Lt Headedness Respiratory: No Cough, No Dry, No Shortness of breath, No SOB with exertion, No Wheezing, No Hemoptysis, No Pleuritic Pain, No Sputum Gastrointestinal: No Nausea, No Vomiting, No Abdominal Pain, No Diarrhea, No Constipation, No Melena, No Hematochezia Genitourinary: No Dysuria, No Frequency, No Incontinence, No Hematuria, No Retention 01/07- The patient was seen at bedside. Patient complains of pain in his left knee. PT evaluation was done for him. He was given heparin this morning and warfarin will be continued from today. CT knee showed small effusion in the left knee. The patient was asked to follow up with his primary care to get a referral to ortho for the same. PT recommended front wheel walker while discharge, consulted social service director. Possible DC tomorrow. Objective vital signs Vital Sign Date Time Temp Pulse Resp B/P (MAP) Pulse Ox O2 Delivery O2 Flow Rate FiO2 01/07/25 17:23 80 18 106/76 01/07/25 16:57 97.9 96 97.9 01/07/25 08:00 Room Air* 0 21 Total Intake and Output 01/06/25 01/06/25 01/07/25 15:00 23:00 07:00 Intake Total 400 ml Balance 400 ml medications Current Medications Medications Dose Ordered Sig/Rebecca Route Start Time Stop Time Status Last Admin Dose Admin Ondansetron HCl 4 mg Q4HP PRN IV 01/05/25 12:45 Diagnostic Test (Pha) 1 strip ACHS 01/05/25 17:00 01/07/25 17:24 1 STRIP Insulin Human Regular ACHS SC 01/05/25 17:00 01/06/25 18:27 3 UNITS Dextrose 50 ml UD PRN IV 01/05/25 12:45 Hydromorphone HCl 0.5 mg Q4HPRN PRN IV 01/05/25 12:45 Hold 01/05/25 14:28 0.5 MG Hydromorphone HCl 1 mg Q4HPRN PRN IV 01/05/25 12:45 01/07/25 17:23 1 MG Hydralazine HCl 10 mg Q6HP PRN IV 01/05/25 12:45 Gemfibrozil 600 mg DAILY PO 01/06/25 10:00 01/07/25 11:19 600 MG Amlodipine Besylate 10 mg DAILY PO 01/06/25 10:00 01/07/25 11:20 10 MG Hydroxyzine Pamoate 50 mg BID PO 01/05/25 22:00 01/07/25 11:20 50 MG Losartan Potassium 100 mg DAILY PO 01/06/25 10:00 01/07/25 11:21 100 MG Metoprolol Succinate 25 mg DAILY PO 01/06/25 10:00 01/07/25 11:21 25 MG Oxycodone HCl 10 mg Q8HP PRN PO 01/05/25 18:00 01/07/25 12:50 10 MG Heparin Sodium/ Dextrose 250 ml @ 18 mls/hr [id number] IV 01/07/25 13:00 01/07/25 14:42 18 MLS/HR Warfarin Sodium RX PROTOCOL PER PHARMACY PO 01/07/25 15:15 Examination General Appearance: Cooperative. Well developed. Well nourished. NAD Head Exam: Normal inspection Neck Exam: Normal inspection. Non-tender. Normal alignment Pulmonary/Respiratory: Chest non-tender. Clear bilateral breath sounds, no crackles, no wheezing. Cardiovascular/Chest: Regular rate and rhythm. No murmurs. No JVD. Peripheral Pulses: 2+ Radial (R). 2+ Radial (L). 2+ Pedal (R). 2+ Pedal (L) Abdominal Exam: Normal bowel sounds. Soft. normal abdomen, no visible veins, Nontender. No hepatospenomegaly. No masses Ankle Exam: Negative ankle edema Lower extremities: Multiple dilated, engorged superficial veins in the left lower extremity , old scar jamel from surgery on the medial aspect of the right lower extremity, no tenderness , decreased range of motion in the left knee, Negative lower extremity edema Neuro/Mental Status: A&O x4. Coherent. Thoughts/Psych: Normal thought pattern. Appropriate mood and affect. Good judgement and insight Skin Exam: Normal inspection. Normal color. Warm. Dry laboratory and microbiology Laboratory Tests 01/06/25 15:40 Test 01/06/25 15:40 Range/Units Serum Glucose 106 74-106 mg/dL Labs and/or images reviewed: Labs reviewed by me, Image(s) reviewed by me Problem List/Assessment/Plan Problem List/Assessment/Plan Left common femoral vein thrombosis Left Superficial femoral vein thrombosis History of DVT and PE, on warfarin s/p IVC filter History of recurrent/chronic left lower extremity DVT - Venous Doppler showed nonocclusive thrombus within the left common femoral and left superficial femoral veins -Start on heparin(heparin once INR reaches below 2) - Added warfarin today -monitor PT INR Left Knee sprain -conservative management -left knee x-ray showed no acute fracture or dislocation -outpatient follow-up with Orthopedic with possible MRI -PT on board -CT showed small left knee joint effusion Diabetes mellitus type 2, controlled -mild insulin sliding scale Essential hypertension, controlled -resume amlodipine, losartan, metoprolol Dyslipidemia -continue with lipid-lowering agent Gemfibrozil PUD prophylaxis: Not indicated DVT prophylaxis: Not indicated Goals of care: Full code, discussed for >16 minutes Plan discussed with patient Plan discussed with Dr. Ruiz Plan discussed with: Patient My Orders My Orders Orders - PB GARCIA RESIDENT Procedure Category Date Status Time Prothrombin Time W/ LAB 01/08/25 Verified INR 04:00 Date of Service: Jan 07, 2025 Billing Provider: CHRISTIANO FORD MD Common Visit Codes: [id number] INP/OBS CARE(HIGH) PB GARCIA RESIDENT Jan 07, 2025 18:22 ZAHEER SANTOS RESIDENT Jan 07, 2025 19:18 CHRISTIANO FORD MD Jan 13, 2025 00:10
[2025-01-07] MEDS: WARFARIN SODIUM 5 MG TAB PO ONE (18:38)
[2025-01-07 19:06] LABS: Anion Gap 7 (5-15); Carbon Dioxide 30 mmol/L (20-31); Chloride 103 mmol/L (98-107); Potassium 4.1 mmol/L (3.5-5.1); Sodium 140 mmol/L (136-145)
[2025-01-07 19:07] LABS: Hematocrit 40.2 % (41.0-53.0); Hemoglobin 13.6 g/dL (13.5-17.5); Mean Corpuscular Hemoglobin 30.6 pg (28.0-32.0); Mean Corpuscular Volume 90.4 fL (80.0-100.0); Nucleated Red Blood Cells % 0.1 %
[2025-01-07 19:08] LABS: Calcium 8.9 mg/dL (8.7-10.4)
[2025-01-07 19:13] LABS: BUN/Creatinine Ratio 12.7 (10.0-20.0); Blood Urea Nitrogen 14 mg/dL (9-23)
[2025-01-07 19:14] LABS: Glucose 147 mg/dL (74-106)
[2025-01-07 19:32] LABS: INR 1.42 (0.9-1.15); Partial Thromboplastin Time 39.2 SEC (24.5-34.5); Prothrombin Time 14.5 sec (9.3-11.8)
--- NOTE | 2025-01-07 20:54 | CONS ---
Pharmacy Clinical Information: NEW HEPARIN RATE INCREASED FROM 18 ML/HR TO 20 ML/HR OR 2000 UNITS/HR SINCE APTT = 39.2 @1903 ON 01/07 PER RX PROTOCOL NEXT APTT CARMEN @0230 ON 01/08 ITA BERMUDEZ AWARE, REPEATED ORDER BACK, AND SET NEW HEPARIN RATE 20ML/HR DEBBIE SHARP PHARMACIST Jan 07, 2025 20:53
[2025-01-08] VITALS (7 sets, daily range): BP systolic 119–156; BP diastolic 78–90; PULSE 75–82; RESP 17–20; TEMP 97.8–98.3; O2SAT 94–100
[2025-01-08 03:03] LABS: INR 1.37 (0.9-1.15); Prothrombin Time 14.1 sec (9.3-11.8)
[2025-01-08 03:10] LABS: Partial Thromboplastin Time 70.9 SEC (24.5-34.5)
[2025-01-08] MEDS: ONDANSETRON HCL 4 MG/2 ML VIAL IV PRN (06:41)
[2025-01-08 06:59] LABS: Hematocrit 41.1 % (41.0-53.0); Hemoglobin 14.3 g/dL (13.5-17.5); Mean Corpuscular Hemoglobin 30.9 pg (28.0-32.0); Mean Corpuscular Volume 89.0 fL (80.0-100.0); Nucleated Red Blood Cells % 0.1 %
[2025-01-08 07:05] LABS: INR 1.38 (0.9-1.15); Prothrombin Time 14.2 sec (9.3-11.8)
[2025-01-08] MEDS ORDERED: ENO100SY SC (11:34)
[2025-01-08] MEDS: ENOXAPARIN SOD 150 MG/1 ML SYRINGE SC ONE (13:26)
--- NOTE | 2025-01-08 16:28 | DVHDSRES ---
Discharge Summary Date of Admission Resident Creating Document: PB GARCIA RESIDENT Jan 05, 2025 at 12:31 Date of Discharge: Jan 08, 2025 Admitting Diagnosis Acute left lower extremity DVT Labs/Diagnostic Data: Laboratory Results Test 01/08/25 11:21 01/08/25 06:18 01/08/25 02:26 01/07/25 11:45 POC Glucose 143 mg/dl (70-106) White Blood Count 5.1 10^3/uL (4.4-10.8) Red Blood Count 4.61 10^6/uL (4.5-5.90) Hemoglobin 14.3 g/dL (13.5-17.5) Hematocrit 41.1 % (41.0-53.0) Mean Corpuscular Volume 89.0 fL (80.0-100.0) Mean Corpuscular Hemoglobin 30.9 pg (28.0-32.0) Mean Corpuscular Hemoglobin Concent 34.8 g/dL (32.0-36.0) Red Cell Distribution Width 13.6 % (11.8-14.3) Platelet Count 216 10^3/uL (140-450) Mean Platelet Volume 7.9 fL (6.9-10.8) Neutrophils (%) (Auto) 67.5 % (37.0-80.0) Lymphocytes (%) (Auto) 25.4 % (10.0-50.0) Monocytes (%) (Auto) 5.6 % (0.0-12.0) Eosinophils (%) (Auto) 0.9 % (0.0-7.0) Basophils (%) (Auto) 0.6 % (0.0-2.0) Neutrophils # (Auto) 3.4 10 ^3/uL (1.6-8.6) Lymphocytes # (Auto) 1.3 10 ^3/uL (0.4-5.4) Monocytes # (Auto) 0.3 10 ^3/uL (0-1.3) Eosinophils # (Auto) 0 10 ^3/uL (0-0.8) Basophils # (Auto) 0 10 ^3/uL (0-0.2) Nucleated Red Blood Cells 0.1 % Prothrombin Time 14.2 sec (9.3-11.8) Prothrombin Time INR 1.38 (0.9-1.15) Activated Partial Thromboplast Time 70.9 SEC (24.5-34.5) Sodium Level 140 mmol/L (136-145) Potassium Level 4.1 mmol/L (3.5-5.1) Chloride Level 103 mmol/L (98-107) Carbon Dioxide Level 30 mmol/L (20-31) Anion Gap 7 (5-15) Blood Urea Nitrogen 14 mg/dL (9-23) Creatinine 1.10 mg/dL (0.700-1.30) Glomerular Filtration Rate Calc 81 mL/min (>90) BUN/Creatinine Ratio 12.7 (10.0-20.0) Serum Glucose 147 mg/dL (74-106) Calcium Level 8.9 mg/dL (8.7-10.4) Test 01/06/25 21:15 01/06/25 04:13 01/05/25 11:20 Urine Color Light-yellow (Yellow) Urine Clarity Clear (Clear) Urine pH 6.0 (5.0-9.0) Urine Specific [place] 1.022 (1.001-1.035) Urine Protein Negative (Negative) Urine Ketones Negative (Negative) Urine Blood Negative /uL (Negative) Urine Nitrite Negative (Negative) Urine Bilirubin Negative (Negative) Urine Urobilinogen 4 mg/dL (Negative) Urine Leukocyte Esterase Negative /uL (Negative) Urine RBC 1 /hpf (0 - 3) Urine Microscopic WBC < 1 /HPF (0-3) Urine Squamous Epithelial Cells Few /hpf (<5) Urine Bacteria None seen /hpf (None Seen) Urine Glucose Normal mg/dL (Normal) Total Bilirubin 0.7 mg/dL (0.2-1.0) Aspartate Amino Transferase (AST) 23 U/L (13-40) Alanine Aminotransferase (ALT) 24 U/L (7-40) Alkaline Phosphatase 71 U/L (46-116) Total Protein 7.1 g/dL (5.7-8.2) Albumin 4.6 g/dL (3.2-4.8) Troponin I High Sensitivity 5 ng/L (</=54) Other Laboratory Tests 01/08/25 06:18 01/07/25 11:45 Brief Hx & Hospital Course: This is a 54-year-old male with a past medical history of chronic DVT, PE on chronic anticoagulation with warfarin s/p IVC filter placement, hypertension, diabetes mellitus, hyperlipidemia, obesity and chronic pain presented to the ED with a complaint of left knee pain since 1 day. The patient mentioned that he misstepped and twisted his left knee, resulting in sharp, shock-like pain. He denied shortness of breath or chest pain. Patient stated that he feels like he has torn a ligament. In the ED, duplex ultrasound of the left lower extremity showed nonocclusive thrombus in the left common femoral and left superficial veins. Left knee x-ray showed no acute fracture or dislocation. CT of the left knee showed small joint effusion. Patient was asked to follow-up with ortho outpatient. Patient was put on heparin and then restarted on warfarin the day before discharge. He was discharged on warfarin and Lovenox for 3 days. Physical therapy recommended front wheel walker for the patient. Questions were answered and all concerns were addressed patient was discharged home. Past medical history: Diabetes mellitus type 2 and hypertension since 20 years, chronic DVT, PE, hyperlipidemia, obesity, chronic pain Past surgical history: IVC filter placement Social & Personal history: Lives at home Smoking: Denies Alcohol: Denies Drugs: Denies Allergies: Coded Allergies: Morphine (Verified Allergy, Severe, 09/05/16) Patient seen and examined at bedside. Patient is alert and oriented to time, place person and responding to all questions. Complains of left knee pain. Eyes: No Pain, No Vision change, No Conjunctivae inflammation, No Eyelid inflammation, No Redness ENT: No Ear pain, No Ear discharge, No Nose pain, No Nose discharge, No Nose congestion, No Mouth pain, No Mouth swelling, No Throat pain, No Throat swelling Cardiovascular: No Chest Pain, No Palpitations, No Orthopnea, No Paroxysmal No Dyspnea, No Edema, No Lt Headedness Respiratory: No Cough, No Dry, No Shortness of breath, No SOB with exertion, No Wheezing, No Hemoptysis, No Pleuritic Pain, No Sputum Gastrointestinal: No Nausea, No Vomiting, No Abdominal Pain, No Diarrhea, No Constipation, No Melena, No Hematochezia Genitourinary: No Dysuria, No Frequency, No Incontinence, No Hematuria, No Retention General Appearance: Cooperative. Well developed. Well nourished. NAD Head Exam: Normal inspection Neck Exam: Normal inspection. Non-tender. Normal alignment Pulmonary/Respiratory: Chest non-tender. Clear bilateral breath sounds, no crackles, no wheezing. Cardiovascular/Chest: Regular rate and rhythm. No murmurs. No JVD. Peripheral Pulses: 2+ Radial (R). 2+ Radial (L). 2+ Pedal (R). 2+ Pedal (L) Abdominal Exam: Normal bowel sounds. Soft. normal abdomen, no visible veins, Nontender. No hepatospenomegaly. No masses Ankle Exam: Negative ankle edema Lower extremities: Multiple dilated, engorged superficial veins in the left lower extremity , old scar jamel from surgery on the medial aspect of the right lower extremity, no tenderness , decreased range of motion in the left knee, Negative lower extremity edema Neuro/Mental Status: A&O x4. Coherent. Thoughts/Psych: Normal thought pattern. Appropriate mood and affect. Good judgement and insight Skin Exam: Normal inspection. Normal color. Warm. Dry Discharge plan: - warfarin home dose -Lovenox 100 mg b.i.d. for 3 days -follow-up with PCP and orthopedic -follow-up with Coumadin Clinic -follow-up with hematology Operations or Procedures 1.PROCEDURE(s): LLDVT - LT Lower DVT REASON: dvt ORDER NUMBER(s): [id number], ACCESSION NUMBER(s): [id number] CLINICAL HISTORY: dvt TECHNIQUE: Color and duplex doppler imagine of the left lower extremity veins was performed. Vessel compression if possible was also performed. COMPARISON: US BILAT LOWER DVT on DOS: 09/20/24, US LT LOWER DVT on DOS: 08/13/24, US LT LOWER DVT on DOS: 08/07/23, US LT LOWER DVT on DOS: 05/02/23, US LT LOWER DVT on DOS: 04/09/23 FINDINGS: Left common femoral vein: Non occlusive thrombus. Left superficial femoral vein: Loops of thrombus at its mid segment. Left popliteal vein: Normal compressibility and flow. IMPRESSION: Non occlusive thrombus within the left common femoral And left superficial femoral veins. These findings were given to dr dunbar by public improvement inspector obvious 2024. 2.PROCEDURE(s): LKNE2 - L KNEE 2V XRAY REASON: pain ORDER NUMBER(s): [id number], ACCESSION NUMBER(s): [id number] XY L KNEE 2V XRAY, INDICATION: pain TECHNICAL DATA: Frontal , and lateral views were obtained of the left knee. COMPARISON: None FINDINGS: No fracture is identified. Medial, lateral and patellofemoral compartment joint spaces are maintained. Alignment is anatomic. Soft tissues are within normal limits. No joint effusion is demonstrated. IMPRESSION: No acute fracture or dislocation of the left knee. 3.PROCEDURE(s): CXRP - CHEST PORTABLE REASON: sob ORDER NUMBER(s): [id number], ACCESSION NUMBER(s): [id number] CLINICAL HISTORY: sob TECHNIQUE: Single view of the chest was obtained. COMPARISON: CT CT ANGIO CHEST CONTRAST on DOS: 09/20/24, XY CHEST PORTABLE on DOS: 09/20/24, XY CHEST XRAY 1 VIEW on DOS: 08/13/24, CT CT ANGIO CHEST CONTRAST on DOS: 08/07/23, XY CHEST TWO VIEWS ROUTINE on DOS: 08/07/23 FINDINGS: The heart size and pulmonary vasculature are normal. The lungs are clear. IMPRESSION: NO ACUTE CARDIOPULMONARY PROCESS. 4.PROCEDURE(s): LKNCT - CT L KNEE WO CONTRAST REASON: ?meniscal tear ORDER NUMBER(s): [id number], ACCESSION NUMBER(s): [id number] INDICATION: meniscal tear COMPARISON: XY L KNEE 2V XRAY on DOS: 01/05/25 TECHNIQUE: CT of the left knee was performed without contrast. Volume transverse images were obtained and reconstructed in multiple planes using bone and soft tissue algorithms. Radiation Dose Information: CT Dose: CTDI volume is 7.86 mGy. Dose-length product is 303.27 mGy*cm FINDINGS: The alignment is normal. The joint spaces are normal. There is no fracture, dislocation or aggressive osseous lesion. Small knee joint effusion. The soft tissues are normal. Prominent varices are present in the knee and calf. IMPRESSION: Small knee joint effusion. Condition at Discharge: Fair Final Diagnosis/Problems List Left common femoral vein thrombosis Left Superficial femoral vein thrombosis History of DVT and PE, on warfarin s/p IVC filter History of recurrent/chronic left lower extremity DVT Left Knee sprain Diabetes mellitus type 2, controlled Essential hypertension, controlled Dyslipidemia Discharge Disposition: Home Discharge Instruct/Medications Diet: Consistent carbohydrate, Cardiac 2g Na,low cholest Diet comment: and consistent carbohydrate Activity: No Restrictions, As Tolerated Follow Up/Referral: PCP Coumadin clinic Hematology oncology Orthopedic to get MRI Discharge Clinic Medications: As per EMR Lovenox for bridging for 2 days Scheduled Amlodipine Besylate (Amlodipine Besylate), 1 TAB PO DAILY, (Reported) Enoxaparin Sodium (Lovenox), 130 MG SC Q12HR Enoxaparin Sodium (Lovenox), 100 MG SC BID Hydroxyzine HCl (Hydroxyzine Hydrochloride), 1 TAB PO BID, (Reported) Insulin Glargine (Lantus), 38 UNIT SC BID, (Reported) Losartan Potassium (Losartan Potassium), 1 TAB PO DAILY, (Reported) Metoprolol Succinate (Metoprolol Succinate Er), 1 TAB PO DAILY, (Reported) Warfarin Sodium (Warfarin Sodium), 1 TAB PO DAILY, (Reported) Scheduled PRN Lidocaine (Lidoderm 5% Topical Patch), 1 PATCH TOP DAILY PRN Oxycodone HCl (Oxycodone Hydrochloride), 10 MG PO TIDPRN PRN, (Reported) Miscellaneous Medications Gemfibrozil (Gemfibrozil), (Reported) Lisinopril (Lisinopril), (Reported) Discharge Statement: "Patient was advised to return to the ER or call 911 if any headaches, dizziness, shortness of breath, chest pain, abdominal pain, bleeding, fevers, or worsening of medical condition. Patient was counseled about treatment plan, medications, possible side effects, patientverbalized understanding. All questions were answered to the best of my ability. This discharge took greater then 30 minutes in planning, reviewing documentation, counseling the patient, and discussing with other team members." ASSESSMENT ASSESSMENT Assessment Left common femoral vein thrombosis Left Superficial femoral vein thrombosis History of DVT and PE, on warfarin s/p IVC filter History of recurrent/chronic left lower extremity DVT Left Knee sprain Diabetes mellitus type 2, controlled Essential hypertension, controlled Dyslipidemia Date of Service: Jan 08, 2025 Billing Provider: CHRISTIANO FORD MD Common Visit Codes: 32539-FNO/OBS DISCH DAY >30min PB GARCIA RESIDENT Jan 08, 2025 16:28 CHRISTIANO FORD MD Jan 13, 2025 01:57
[2025-01-08] MEDS ORDERED: WARFARIN SODIUM 5 MG TAB PO ONE (17:00)
== END 2025-01-08 15:03 | disposition home or self-care (01) | DRG 197 ==
LOC: ER 08:15 → OVERFLOW 12:31 → EAST 01-06 22:13
PROVIDERS: ADMIT Student in an Organized Health Care Education/Training Program; ATTEND Emergency Medicine
DX: I82.412 Acute embolism and thrombosis of left femoral vein (principal); E11.9 Type 2 diabetes mellitus without complications; E66.9 Obesity, unspecified; E78.5 Hyperlipidemia, unspecified; R65.10 Systemic inflammatory response syndrome (SIRS) of non-infectious origin without acute organ dysfunction; I10 Essential (primary) hypertension; Z68.36 Body mass index [BMI] 36.0-36.9, adult; Z95.828 Presence of other vascular implants and grafts; S83.8X2A Sprain of other specified parts of left knee, initial encounter; Z88.5 Allergy status to narcotic agent; Z86.718 Personal history of other venous thrombosis and embolism; Z82.49 Family history of ischemic heart disease and other diseases of the circulatory system; Z79.01 Long term (current) use of anticoagulants; X58.XXXA Exposure to other specified factors, initial encounter; Y93.89 Activity, other specified; Y92.89 Other specified places as the place of occurrence of the external cause; Y99.8 Other external cause status
CPT/HCPCS: 36415; 71045; 73560; 73700; 80048; 80053; 81001; 82962; 84484; 85025; 85610; 85730; 93971; 96374; 97116; 97163; 97530; 99291; G0378; J1815; J2405

== ENCOUNTER 2025-03-09 07:49 | Inpatient (IN) | payer MEDICAID ==
[~2025-03-09] VITALS: Ht 188 cm; Wt 134.8 kg
[~2025-03-09 07:49] MED LIST changes: +ENO100SY SC
--- NOTE | 2025-03-09 08:19 | ED.PDOC ---
Musculoskeletal HPI Comments 54 y/o M, with PMHx of DVT's, HTN, DM, and HLD presents to the ED for CC of lower extremity pain. Patient states, that he has been experiencing left-calf pain with associated swelling x2days. Patient reports, that he is currently on Coumadin for prior MHx of DVT's and did receive a thrombectomy to his left extremity. At this time patient c/o TTP of the left calf and pain with ambulation. Patient denies chest pain or shortness of breath. No other symptoms or modifying factors are present at this time. Chief Complaint: Lower Extremity Time Seen by MD: 08:10 Primary Care Provider: ASHLYN Reviewed Notes: Nurses Notes, Medications, Allergies Allergies: Coded Allergies: Morphine (Verified Allergy, Severe, 09/05/16) Home Meds Active Scripts Enoxaparin Sodium (Lovenox) 100 Mg/1 Ml Inj, 100 MG SC BID for 3 Days, #6 INJ Prov:ZAHEER SANTOS RESIDENT 01/08/25 Enoxaparin Sodium (Lovenox) 150 Mg/1 Ml Ij, 130 MG SC Q12HR for 14 Days, #28 INJ Prov:NANCY RIVERA MD 09/22/24 Lidocaine (LIDODERM 5% TOPICAL PATCH) 1 Patch Ph, 1 PATCH TOP DAILY PRN, #30 PATCH 1 Refill Prov:JADE ORTEGA MARKET[employer] PROGRAMS SPECIALIST 06/27/22 Reported Medications Hydroxyzine HCl (Hydroxyzine Hydrochloride) 50 Mg Tab, 1 TAB PO BID 08/13/24 Losartan Potassium (Losartan Potassium) 100 Mg Tab, 1 TAB PO DAILY 08/13/24 Amlodipine Besylate (Amlodipine Besylate) 10 Mg Tab, 1 TAB PO DAILY 08/13/24 Oxycodone HCl (Oxycodone Hydrochloride) 10 Mg Tab, 10 MG PO TIDPRN PRN, TAB 08/13/24 Metoprolol Succinate (Metoprolol Succinate Er) 25 Mg Tab, 1 TAB PO DAILY 08/13/24 Warfarin Sodium (Warfarin Sodium) 10 Mg Tab, 1 TAB PO DAILY 08/13/24 Insulin Glargine (Lantus) 100 Unit/Ml Inj, 38 UNIT SC BID, INJ 12/28/17 Gemfibrozil (Gemfibrozil) 600 Mg Tab, #60 11/26/15 Lisinopril (Lisinopril) 10 Mg Tab, #30 11/26/15 Information Source: Patient Mode of Arrival: Ambulatory Location: Left Extremity Location: Calf Timing: Days Prehospital treatment: None Severity: Moderate Able to Move Extremity: Yes Bear Weight: Limited Pain: Moderate Mechanism: Spontaneous Onset of Symptoms: Spontaneous Symptoms: Swelling, Pain DVT Risk Factors: DVT Associated signs and symptoms: Swelling Past Medical History PAST MEDICAL HISTORY: DM, High Lipids, HTN Surgical History: Denies all surgeries Family History Family History: Reviewed,noncontributory to illness, Unknown, Family hx of HTN Social History Smoker: Non-Smoker Alcohol: Denies ETOH Use Drugs: Denies Drug Use Lives In: Home Constitutional: denies: chills, diaphoresis, fatigue, fever, malaise, sweats, weakness, others EENTM: denies: blurred vision, double vision, ear bleeding, ear discharge, ear drainage, ear pain, ear ringing, eye pain, eye redness, hearing loss, mouth pain, mouth swelling, nasal discharge, nose bleeding, nose congestion, nose pain, photophobia, tearing, throat pain, throat swelling, voice changes, others Respiratory: denies: cough, hemoptysis, orthopnea, SOB at rest, shortness of breath, SOB with excertion, stridor, wheezing, others Cardiovascular: denies: chest pain, dizzy spells, diaphoresis, Dyspnea on exertion, edema, irregular heart beat, left arm pain, lightheadedness, palpitations, PND, syncope, others Gastrointestinal: denies: abdomen distended, abdominal pain, blood streaked bowels, constipated, diarrhea, dysphagia, difficulty swallowing, hematemesis, melena, nausea, poor appetite, poor fluid intake, rectal bleeding, rectal pain, vomiting, others Genitourinary: denies: burning, dysuria, flank pain, frequency, hematuria, incontinence, penile discharge, penile sore, pain, testicle pain, testicle swelling, urgency, others Neurological: denies: dizziness, fainting, headache, left sided numbness, left sided weakness, numbness, paresthesia, pre-existing deficit, right sided numbness, right sided weakness, seizure, speech problems, tingling, tremors, weakness, others Musculoskeletal: reports: others (left-calf pain); denies: back pain, gout, joint pain, joint swelling, muscle pain, muscle stiffness, neck pain Integumetry: denies: bruises, change in color, change in hair/nails, dryness, laceration, lesions, lumps, rash, wounds, others Allergic/Immunocompromised: denies: Difficulty Healing, Frequent Infections, Hives, Itching, others Hematologic/Lymphatic: denies: anemia, blood clots, easy bleeding, easy bruising, swollen glands, others Endocrine: denies: excessive hunger, excessive sweating, excessive thirst, excessive urination, flushing, intolerance to cold, intolerance to heat, unexplained weight gain, unexplained weight loss, others Psychiatric: denies: anxiety, bipolar disorder, depression, hopeless, panic disorder, schizophrenia, sleepless, suicidal, others All Other Systems: Reviewed and Negative Physical Exam General Appearance: Moderate Distress, Obese HEENT: Normal ENT Inspection, Pharynx Normal, TMs Normal Neck: Full Range of Motion, Non-Tender, Normal, Normal Inspection Respiratory: Chest Non-Tender, Lungs Clear, No Accessory Muscle Use, No Respi ratory Distress, Normal Breath Sounds Cardiovascular: No Edema, No JVD, No Murmur, No Gallop, Normal Peripheral Pulses, Regular Rate/Rhythm Breast Exam: Deferred Gastrointestinal: No Organomegaly, Non Tender, No Pulsatile Mass, Normal Bowel Sounds, Soft Genitalia: Deferred Pelvic: Deferred Rectal: Deferred Extremities: Swelling (Left lower extremity) Musculoskeletal : Apperance: Normal Neurologic: Alert, extruding machine operator II-XII nml as Tested, No Motor Deficits, Normal Affect, Normal Mood, No Sensory Deficits Cerebellar Function: Normal Reflexes: Normal Skin: Dry, Normal Color, Warm Peripheral Pulses: 3+ Radial (R), 3+ Radial (L) Lymphatic: No Adenopathy Was a procedure done? Was a procedure done?: No Differential Diagnosis EXT Differential Diagnosis: Deep Vein Thrombosis X-Ray, Labs, Meds, VS Vital Signs Date Time Temp Pulse Resp B/P (MAP) Pulse Ox O2 Delivery O2 Flow Rate FiO2 03/09/25 10:39 97.7 78 18 136/89 (105) 97 97.7 03/09/25 08:25 93 18 134/87 (103) 98 03/09/25 08:25 86 18 98 Room Air 03/09/25 07:50 98.2 96 20 130/96 95 98.2 Current Medications Medications (Trade) Dose Ordered Sig/Rebecca Route Start Time Stop Time Status Last Admin Acetaminophen/ Hydrocodone Bitart ([place] 10/325MG Tab) 1 tab ONCE ONCE PO 03/09/25 08:15 03/09/25 08:16 DC 03/09/25 08:[address] [address] Ph: [phone] DIAGNOSTIC IMAGING Diagnostic Imaging Report : [id number] Signed PATIENT: PANCHO JASMINE ACCT: [id number] UNIT: [id number] : 1970 LOC: ER ROOM / BED: / AGE / SEX: 54 / M ADM STATUS: REG ER SERVICE 7 ORDERING PHYSICIAN: LUCIA HIGGINS MD PROCEDURE(s): LLDVT - LT Lower DVT REASON: dvt ORDER NUMBER(s): [id number], ACCESSION NUMBER(s): [id number] CLINICAL HISTORY: DVT. COMPARISON: US LT LOWER DVT on DOS: 01/05/25, US BILAT LOWER DVT on DOS: 09/20/24, US LT LOWER DVT on DOS: 09/16/24 TECHNIQUE: Compression evaluation and color doppler evaluation of the deep veins of the left lower extremity was performed. Evaluation for augmentation and flow characteristics with doppler pulse wave imaging was performed. Realtime grayscale and Doppler ultrasound images of the deep venous structures with spectral waveform analysis were obtained. FINDINGS: This examination demonstrates nonocclusive thrombus involving the left common femoral, deep femoral, femoral, and popliteal veins with flow de monstrated around the areas of thrombus. The calf veins were not evaluated. IMPRESSION: Nonocclusive thrombus in the left lower extremity as detailed above. May be subacute to chronic. Findings were reported to Dr. Higgins in the emergency department by the pouncer machine at 9:25 a.m. PST on 03/09/2025. ATED BY: GIOVANY CRESPO DO DICTATED DATE/TIME: 03/09/25937 SIGNED BY: GIOVANY CRESPO DO SIGNED DATE/TIME: 03/09/25937 CC: Patient alert. Came in because of left lower extremity swelling. Vitals stable. Answering questions. Possible DVT. He does have a history of clot. Reviewed the ultrasound does show a thrombus. He is on Coumadin. Possibly will need intervention radiology to remove the clot. Explained to the patient. Continue monitoring. Time of 1ST Reevaluation: 08:40 Reevaluation 1ST: Unchanged Patient Education/Counseling: Diagnosis, Treatment Family Education/Counseling: No Family Present Departure 1 Departure Time of Disposition: 11:19 Impression: Primary Impression: Deep venous thrombosis Qualified Codes: I82.402 - Acute embolism and thrombosis of unspecified deep veins of left lower extremity Disposition: ADMITTED INPATIENT Admit to: Med Surg Condition: Guarded Critical Care Note Critical Care Time?: No Stability Stability form required: No Heart Score Heart Score: Heart Score Response (Comments) Value History N/A 0 EKG N/A 0 Age N/A 0 Risk Factors N/A 0 Troponin N/A 0 Total 0 I personally scribed for LUCIA HIGGINS MD ([email or web address]) on 03/09/25 at 08:19. Electronically submitted by Reshma Oreilly ([email or web address]). I personally scribed for LUCIA HIGGINS MD ([email or web address]) on 03/09/25 at 10:04. Electronically submitted by Reshma Oreilly ([email or web address]). LUCIA HIGGINS MD Mar 09, 2025 08:19
[2025-03-09] MEDS: HYDROcodone-ACET 10/325MG TAB PO ONE (08:28)
--- NOTE | 2025-03-09 09:41 | DVH ---
CLINICAL HISTORY: DVT. COMPARISON: US LT LOWER DVT on DOS: 01/05/25, US BILAT LOWER DVT on DOS: 09/20/24, US LT LOWER DVT on D OS: 09/16/24 TECHNIQUE: Compression evaluation and color doppler evaluation of the deep veins of the left lower ex tremity was performed. Evaluation for augmentation and flow characteristics with doppler pulse wave i maging was performed. Realtime grayscale and Doppler ultrasound images of the deep venous structures with spectral waveform analysis were obtained. FINDINGS: This examination demonstrates nonocclusive thrombus involving the left common femoral, deep femoral, femoral, and popliteal veins with flow demonstrated around the areas of thrombus. The calf veins were not evaluated. IMPRESSION: Nonocclusive thrombus in the left lower extremity as detailed above. May be subacute to chronic. Find ings were reported to Dr. Lan in the emergency department by the adapted physical education specialist at 9:25 a.m. PST on 03/09/2025.
--- NOTE | 2025-03-09 11:44 | DVH ---
CHEST RADIOGRAPH Indication: sob Technique: Single frontal view of the chest was obtained Comparison: XY CHEST PORTABLE on DOS: 01/05/25, XY CHEST PORTABLE on DOS: 09/20/24, XY CHEST XRAY 1 VIE W on DOS: 08/13/24 FINDINGS: Lines and Tubes: None Lungs: No focal consolidation. Pleura: No effusion. No pneumothorax. Cardiomediastinal contours: Unremarkable Bones: No acute osseous abnormality. IMPRESSION: 1. No acute cardiopulmonary disease.
[2025-03-09 11:47] VITALS: PULSE 75; RESP 13; O2SAT 95
[2025-03-09 12:13] LABS: Chloride 103 mmol/L (98-107); Hematocrit 43.2 % (41.0-53.0); Hemoglobin 15.0 g/dL (13.5-17.5); Mean Corpuscular Hemoglobin 30.7 pg (28.0-32.0); Mean Corpuscular Volume 88.2 fL (80.0-100.0); Nucleated Red Blood Cells % 0.0 %; Potassium 3.9 mmol/L (3.5-5.1); Sodium 140 mmol/L (136-145)
[2025-03-09 12:14] LABS: Anion Gap 10 (5-15); Carbon Dioxide 27 mmol/L (20-31)
[2025-03-09 12:15] LABS: Calcium 9.1 mg/dL (8.7-10.4)
[2025-03-09] MEDS ORDERED: ACETAMINOPHEN 325 MG TAB PO PRN (12:15)
[2025-03-09 12:20] LABS: BUN/Creatinine Ratio 16.7 (10.0-20.0); Blood Urea Nitrogen 16 mg/dL (9-23); Glucose 113 mg/dL (74-106)
[2025-03-09] MEDS: SODIUM CHLORIDE 0.9% 1,000 ML IV SCH (12:27)
[2025-03-09 12:28] LABS: INR 2.95 (0.9-1.15); Partial Thromboplastin Time 49.4 SEC (24.5-34.5); Prothrombin Time 28.1 sec (9.3-11.8)
--- NOTE | 2025-03-09 13:28 | DVHHP2 ---
History of Present Illness Reason for Visit: Left lower extremity DVT History of Present Illness This is a 54-year-old male with history of hypertension, hyperlipidemia, dm and DVTs presents to ED with chief complaint of left lower extremity pain associated with swelling x2 days. Patient reports that he is currently on Coumadin for which he is compliant on for prior medical history of DVTs and did receive a thrombectomy in the past. The patient is concerned about his symptoms and would like to be further evaluated and treated. The patient will be admitted under hospitalist care to the telemetry unit for continuous monitoring. The patient denies fever, chills, headache, dizziness, palpitation, chest pain, shortness of breast, nausea, vomiting, abdominal pain, diarrhea, constipation and other associated symptoms. The plan has been discussed with the patient and primary RN in which all questions concerns have been addressed. Cardiovascular: HTN, hyperipidemia Endocrine: Diabetes Past Medical History DVT Past Surgical History Thrombectomy Family History: Hypertension Smoke: No ALCOHOL: none Drugs: None Lives: with Family Domestic Violence: Neg Review of Systems Musculoskeletal: leg pain (Left lower extremity) Allergies: Coded Allergies: Morphine (Verified Allergy, Severe, 09/05/16) Medications Current Medications Medications Dose Ordered Sig/Rebecca Route Start Time Stop Time Status Last Admin Dose Admin Warfarin Sodium RX PROTOCOL PER PHARMACY PO 03/09/25 12:15 UNV Sodium Chloride 1,000 ml @ 60 mls/hr [id number] IV 03/09/25 12:15 03/09/25 12:27 60 MLS/HR Acetaminophen/ Hydrocodone Bitart 1 tab Q4HP PRN PO 03/09/25 12:15 Acetaminophen 650 mg Q6HP PRN PO 03/09/25 12:15 Warfarin Sodium 10 mg DAILY PO 03/10/25 10:00 UNV Amlodipine Besylate 10 mg DAILY PO 03/10/25 10:00 Hydroxyzine Pamoate 50 mg BID PO 03/09/25 22:00 Losartan Potassium 100 mg DAILY PO 03/10/25 10:00 Metoprolol Succinate 25 mg DAILY PO 03/10/25 10:00 Oxycodone HCl 10 mg TIDPRN PRN PO 03/09/25 13:00 Exam Vital Signs Vital Signs Date Time Temp Pulse Resp B/P (MAP) Pulse Ox O2 Delivery O2 Flow Rate FiO2 03/09/25 12:00 74 03/09/25 11:47 13 95 Room Air* 0 21 03/09/25 10:39 97.7 136/89 (105) 97.7 General Appearance: Alert, Oriented X3, Cooperative, mild distress (Of his left calf) HEENT: Atraumatic, PERRLA, Mucous membr. moist/pink Respiratory: Clear to auscultation, Normal air movement Cardiovascular: Normal S1, Normal S2, No murmurs Abdominal: Normal bowel sounds, Soft, No hepatospenomegaly, No masses Extremities: No clubbing, No cyanosis, Normal pulses, No tenderness/swelling Skin: No rashes, No breakdown Neuro: Normal gait, Normal speech, Strength at 5/5 X4 ext, Normal tone, Sensation intact, Cranial nerves 3-12 NL Psych/Mental Status: Mental status NL, Mood NL Labs/Xrays Labs Test 03/09/25 11:34 Range/Units White Blood Count 6.3 4.4-10.8 10^3/uL Red Blood Count 4.89 4.5-5.90 10^6/uL Hemoglobin 15.0 13.5-17.5 g/dL Hematocrit 43.2 41.0-53.0 % Mean Corpuscular Volume 88.2 80.0-100.0 fL Mean Corpuscular Hemoglobin 30.7 28.0-32.0 pg Mean Corpuscular Hemoglobin Concent 34.8 32.0-36.0 g/dL Red Cell Distribution Width 13.5 11.8-14.3 % Platelet Count 245 140-450 10^3/uL Mean Platelet Volume 7.8 6.9-10.8 fL Neutrophils (%) (Auto) 66.9 37.0-80.0 % Lymphocytes (%) (Auto) 24.8 10.0-50.0 % Monocytes (%) (Auto) 6.8 0.0-12.0 % Eosinophils (%) (Auto) 0.9 0.0-7.0 % Basophils (%) (Auto) 0.6 0.0-2.0 % Neutrophils # (Auto) 4.2 1.6-8.6 10 ^3/uL Lymphocytes # (Auto) 1.6 0.4-5.4 10 ^3/uL Monocytes # (Auto) 0.4 0-1.3 10 ^3/uL Eosinophils # (Auto) 0.1 0-0.8 10 ^3/uL Basophils # (Auto) 0 0-0.2 10 ^3/uL Nucleated Red Blood Cells 0.0 % Prothrombin Time 28.1 H 9.3-11.8 sec Prothrombin Time INR 2.95 H 0.9-1.15 Activated Partial Thromboplast Time 49.4 H 24.5-34.5 SEC Sodium Level 140 136-145 mmol/L Potassium Level 3.9 3.5-5.1 mmol/L Chloride Level 103 98-107 mmol/L Carbon Dioxide Level 27 20-31 mmol/L Anion Gap 10 5-15 Blood Urea Nitrogen 16 9-23 mg/dL Creatinine 0.96 0.700-1.30 mg/dL Glomerular Filtration Rate Calc 95 >90 mL/min BUN/Creatinine Ratio 16.7 10.0-20.0 Serum Glucose 113 H 74-106 mg/dL Calcium Level 9.1 8.7-10.4 mg/dL ORDERING PHYSICIAN: LUCIA HIGGINS MD PROCEDURE(s): CXRP - CHEST PORTABLE REASON: sob ORDER NUMBER(s): [id number], ACCESSION NUMBER(s): [id number] CHEST RADIOGRAPH Indication: sob Technique: Single frontal view of the chest was obtained Comparison: XY CHEST PORTABLE on DOS: 01/05/25, XY CHEST PORTABLE on DOS: 09/20/24, XY CHEST XRAY 1 VIEW on DOS: 08/13/24 FINDINGS: Lines and Tubes: None Lungs: No focal consolidation. Pleura: No effusion. No pneumothorax. Cardiomediastinal contours: Unremarkable Bones: No acute osseous abnormality. IMPRESSION: 1. No acute cardiopulmonary disease. ATED BY: MADELYN AUSTIN Jr., DO DICTATED DATE/TIME: 03/09/25 114 SIGNED BY: MADELYN AUSTIN Jr., SIGNED DATE/TIME: 03/09/25 1142 ORDERING PHYSICIAN: LUCIA HIGGINS MD PROCEDURE(s): LLDVT - LT Lower DVT REASON: dvt ORDER NUMBER(s): [id number], ACCESSION NUMBER(s): [id number] CLINICAL HISTORY: DVT. COMPARISON: US LT LOWER DVT on DOS: 01/05/25, US BILAT LOWER DVT on DOS: 09/20/24, US LT LOWER DVT on DOS: 09/16/24 TECHNIQUE: Compression evaluation and color doppler evaluation of the deep veins of the left lower extremity was performed. Evaluation for augmentation and flow characteristics with doppler pulse wave imaging was performed. Realtime gra yscale and Doppler ultrasound images of the deep venous structures with spectral waveform analysis were obtained. FINDINGS: This examination demonstrates nonocclusive thrombus involving the left common femoral, deep femoral, femoral, and popliteal veins with flow demonstrated around the areas of thrombus. The calf veins were not evaluated. IMPRESSION: Nonocclusive thrombus in the left lower extremity as detailed above. May be subacute to chronic. Findings were reported to Dr. Higgins in the emergency d epartment by the trial judge at 9:25 a.m. PST on 03/09/2025. ATED BY: GIOVANY CRESPO DO DICTATED DATE/TIME: 03/09/25937 SIGNED BY: GIOVANY CRESPO DO SIGNED DATE/TIME: 03/09/25937 CC: SEPSIS Sepsis Screen Date sepsis recognized/suspect: Mar 09, 2025 Time Sepsis recognized/suspect: 0753 Recent Procedure: No On Antibiotic Therapy: No Respiratory Rate >20: No Heart Rate >90: Yes Temp<36 C (96.8 F) or >38.3 C: No SBP <90 or MAP <65 mmHG: No New Acute Mental Status Change: No Is the patient on CPAP, BIPAP,: No Physician Orders Lt Lower Dvt (03/09/25 08:08) * Radiologist Consult (03/09/25 11:11) Chest Portable (03/09/25 11:12) Urinalysis (03/09/25 11:12) Warfarin Per Rx Protocol (Coumadin Per R (03/09/25 12:15) Admit (03/09/25 12:08) 2 Gm Sodium Diet (03/09/25 Lunch) Sodium Chloride 0.9% (03/09/25 12:15) Hydrocodone-Acet 5/325mg Tab ([place] 5/32 (03/09/25 12:15) Comprehensive Metabolic Panel (03/10/25 04:00) Condition: Fair (03/09/25 12:08) Acetaminophen Tablet (Tylenol Tablet) (03/09/25 12:15) Bedrest With Bathroom Privileg (03/09/25 12:08) Coumadin Per Rx 10mg Protocol (Warfarin (03/10/25 10:00) Amlodipine Tablet (Norvasc Tablet) (03/10/25 10:00) Hydroxyzine Oral (Vistaril Oral) (03/09/25 22:00) Losartan Tablet (Cozaar Tablet) (03/10/25 10:00) Metoprolol Xl Succinate (Toprol Xl) (03/10/25 10:00) Oxycodone Immediate Rel Tablet (03/09/25 13:00) Forestry Biology Specialist (03/09/25 ) Vital Signs Date Time Temp Pulse Resp B/P (MAP) Pulse Ox O2 Delivery O2 Flow Rate FiO2 03/09/25 12:00 74 03/09/25 11:47 75 13 95 Room Air* 0 21 03/09/25 10:39 97.7 78 18 136/89 (105) 97 97.7 03/09/25 08:25 93 18 134/87 (103) 98 03/09/25 08:25 86 18 98 Room Air 03/09/25 07:50 98.2 96 20 130/96 95 98.2 Laboratory Tests Test 03/09/25 11:34 White Blood Count 6.3 10^3/uL (4.4-10.8) Medications Medications Dose Ordered Sig/Rebecca Route Start Time Stop Time Status Last Admin Dose Admin Acetaminophen/ Hydrocodone Bitart 1 tab ONCE ONCE PO 03/09/25 08:15 03/09/25 08:16 DC 03/09/25 08:28 1 TAB Sodium Chloride 1,000 ml @ 60 mls/hr [id number] IV 03/09/25 12:15 03/09/25 12:27 60 MLS/HR Assessment/Plan Assessment/Plan Left lower extremity DVT--patient with chief complaint of left lower extremity calf pain associated with swelling x2 days History of DVT currently on Coumadin Patient reports IVC filter about 7-8 years ago Admit to telemetry unit for continuous monitoring Reviewed CBC which is normal Reviewed BMP which is normal INR is 2.95 Reviewed chest x-ray within normal limits Reviewed Doppler study to left lower extremity which reveals nonocclusive thrombus to left lower extremity IV/p.o. Pain medication as needed for pain Coumadin per pharmacy Consult interventional radiologist for possible thrombectomy Type 2 DM Hold antidiabetic meds for now Regular insulin mild SS a.c. and HS Accu-Cheks per protocol Hypertension-controlled Continue antihypertensive agent Continue to monitor Reconcile home meds DVT prophylaxis PUD prophylaxis not indicated no history of GERD Labs in a.m. Discussed plan of care with the patient in which all questions concerns have been addressed Plan discussed with: Patient My Orders Orders - CHAS MCGINNIS Procedure Category Date Status Time Warfarin Per Rx PHA 03/09/25 Logged Protocol (Coumadin 12:15 Admit ADMIT 03/09/25 Transmitted 12:08 2 Gm Sodium Diet DIET 03/09/25 Transmitted Lunch Sodium Chloride 0.9% PHA 03/09/25 In Process 12:15 Hydrocodone-Acet PHA 03/09/25 In Process 5/325mg Tab ([place] 12:15 Comprehensive LAB 03/10/25 Verified Metabolic Panel 04:00 Condition: Fair JERMAIN 03/09/25 In Process 12:08 Acetaminophen Tablet PHA 03/09/25 In Process (Tylenol Tablet) 12:15 Bedrest With Bathroom JERMAIN 03/09/25 In Process Privileg 12:08 Coumadin Per Rx 10mg PHA 03/10/25 Logged Protocol (Warfarin 10:00 Amlodipine Tablet PHA 03/10/25 In Process (Norvasc Tablet) 10:00 Hydroxyzine Oral PHA 03/09/25 In Process (Vistaril Oral) 22:00 Losartan Tablet PHA 03/10/25 In Process (Cozaar Tablet) 10:00 Metoprolol Xl PHA 03/10/25 In Process Succinate (Toprol Xl) 10:00 Oxycodone Immediate PHA 03/09/25 In Process Rel Tablet 13:00 Date of Service: Mar 09, 2025 Billing Provider: CHAS MCGINNIS Common Visit Codes: [id number] INP/OBS CARE (HIGH) CHAS MCGINNIS Mar 09, 2025 13:28
[2025-03-09] MEDS ORDERED: DEXTROSE (50%) 50ML SYRG IV PRN (13:30)
[2025-03-09 13:40] LABS: Urine Protein, UAD TRACE (Negative)
[2025-03-09] MEDS: HYDROmorphone HCL 2 MG/ML VL/or syr IV PRN (15:07)
[2025-03-09] MEDS: ACCU-CHEK COMFORT CURVE STRIP VI SCH (16:58)
[2025-03-09] MEDS: InsuLIN REG 1unit/0.01ml Soln (100units/ml) SC SCH (17:11)
[2025-03-09 17:29] VITALS: BP 123/94; PULSE 75; RESP 20; TEMP 98.2; O2SAT 98
[2025-03-09 19:30] VITALS: PULSE 85; RESP 17; O2SAT 96
[2025-03-09] MEDS: HYDROcodone-ACET 5/325MG TAB PO PRN (19:49)
[2025-03-09 21:00] VITALS: BP 137/91; PULSE 76; RESP 17; TEMP 97.6; O2SAT 96
[2025-03-09] MEDS: hydrOXYzine 25 MG TAB or CAP PO SCH (22:14)
[2025-03-10] VITALS (8 sets, daily range): BP systolic 114–148; BP diastolic 69–99; PULSE 69–80; RESP 17–19; TEMP 97.2–98.2; O2SAT 96–99
[2025-03-10 06:41] LABS: Hematocrit 39.9 % (41.0-53.0); Hemoglobin 14.0 g/dL (13.5-17.5); Mean Corpuscular Hemoglobin 30.8 pg (28.0-32.0); Mean Corpuscular Volume 87.5 fL (80.0-100.0); Nucleated Red Blood Cells % 0.1 %
[2025-03-10 06:56] LABS: Alanine Aminotransferase 25 U/L (7-40); Alkaline Phosphatase 80 U/L (46-116); Anion Gap 10 (5-15); BUN/Creatinine Ratio 13.1 (10.0-20.0); Blood Urea Nitrogen 11 mg/dL (9-23); Carbon Dioxide 26 mmol/L (20-31); Chloride 102 mmol/L (98-107); Potassium 4.0 mmol/L (3.5-5.1); Sodium 138 mmol/L (136-145); Total Protein 6.6 g/dL (5.7-8.2)
[2025-03-10 06:57] LABS: Albumin 4.0 g/dL (3.2-4.8); Bilirubin, Total 0.5 mg/dL (0.2-1.0)
[2025-03-10 06:58] LABS: Calcium 8.6 mg/dL (8.7-10.4); Glucose 123 mg/dL (74-106); INR 2.96 (0.9-1.15); Partial Thromboplastin Time 53.1 SEC (24.5-34.5); Prothrombin Time 28.2 sec (9.3-11.8)
[2025-03-10] MEDS: LOSARTAN POTASSIUM 50 MG TAB PO SCH (08:43)
[2025-03-10] MEDS: METOPROLOL SUCCINATE XL 50 MG TAB PO SCH (08:43)
[2025-03-10] MEDS ORDERED: [UNRECOGNIZED DRUG - OTHER] PO SCH (10:00)
--- NOTE | 2025-03-10 11:50 | DVHPNRES ---
Progress Note Date Seen: Mar 10, 2025 Resident Creating Document: SIMBA HARP RESIDENT Has the PT tested + for MRSA If YES, has PT been informed?: No Medical Necessity Reason Pt with a Central, PICC or Fol: No Subjective Review of Systems Adrian Zuniga Is a 54-year-old male with history of hypertension, hyperlipidemia, DM type 2, lane insufficiency and recurrent DVTs. The patient presents to [facility]- ED with chief complaint of 2 days of left lower extremity pain 8/10, localized in the calf, continues, stabbing-like, irradiated diffusely in the leg, no relieving or exacerbating factors; the pain was associated with edema and warmth. On further questioning, the patient report that he could had been bitten by an insect and he noticed a punctuated lesion surrounding by edema. The patient reports that he is currently on Coumadin for recurrent DVTs and had a thrombectomy in the past. The patient denies fever, chills, headache, dizziness, palpitations, chest pain, shortness of breast, nausea, vomiting, abdominal pain, diarrhea, constipation and other associated symptoms. The patient was admitted for further diagnosed and management. Past medical history: Cardiovascular: HTN, hyperipidemia Endocrine: Diabetes. DVT Past Surgical History: Thrombectomy Family History: Hypertension Social history: Smoke: No. Alcohol: none. Drugs: None. Lives: with Family. Domestic Violence: Neg Hospital course: on 03/10/25, the patient was evaluated and examined. Labs, VS and chart was reviewed. Warfarin levels are within therapeutic limits. The patient report left leg pain 7/10 after analgesia, he does not has new complaints. The US doppler showed: Non-occlusive thrombus in the left lower extremity as detailed above. May be subacute to chronic. CT leg was requested today. The patient was starter on heparin drip. We will follow up the progress of this patient closely. ROS: Constitutional: denies: chills, diaphoresis, fatigue, fever, malaise, sweats, weakness, others EENTM: denies: blurred vision, double vision, ear bleeding, ear discharge, ear drainage, ear pain, ear ringing, eye pain, eye redness, hearing loss, mouth pain, mouth swelling, nasal discharge, nose bleeding, nose congestion, nose pain, photophobia, tearing, throat pain, throat swelling, voice changes, others Respiratory: denies: cough, hemoptysis, orthopnea, SOB at rest, shortness of breath, SOB with excertion, stridor, wheezing, others Cardiovascular: denies: chest pain, dizzy spells, diaphoresis, Dyspnea on exertion, edema, irregular heart beat, left arm pain, lightheadedness, palpitations, PND, syncope, others Gastrointestinal: reports: Improvement, no new nausea, vomiting or diarrhea; denies: abdomen distended, abdominal pain, blood streaked bowels, constipated, diarrhea, dysphagia, difficulty swallowing, hematemesis, melena, poor appetite, poor fluid intake, rectal bleeding, rectal pain, others Genitourinary: denies: burning, dysuria, flank pain, frequency, hematuria, incontinence, penile discharge, penile sore, pain, testicle pain, testicle swelling, urgency, others Neurological: reports: No headache; denies: dizziness, fainting, left sided numbness, left sided weakness, numbness, paresthesia, pre-existing deficit, right sided numbness, right sided weakness, seizure, speech problems, tingling, tremors, weakness, others Musculoskeletal: Left leg pain and swelling. denies: back pain, gout, joint pain, joint swelling, muscle pain, muscle stiffness, neck pain, others Integumetry: denies: bruises, change in color, change in hair/nails, dryness, laceration, lesions, lumps, rash, wounds, others Allergic/Immunocompromised: denies: Difficulty Healing, Frequent Infections, Hives, Itching, others Hematologic/Lymphatic: denies: anemia, blood clots, easy bleeding, easy bruising, swollen glands, others Endocrine: denies: excessive hunger, excessive sweating, excessive thirst, excessive urination, flushing, intolerance to cold, intolerance to heat, unexplained weight gain, unexplained weight loss, others Psychiatric: denies: anxiety, bipolar disorder, depression, hopeless, panic disorder, schizophrenia, sleepless, suicidal, others All Other Systems: Reviewed and Negative Objective vital signs Vital Sign Date Time Temp Pulse Resp B/P (MAP) Pulse Ox O2 Delivery O2 Flow Rate FiO2 03/10/25 08:52 80 20 160/97 03/10/25 08:50 97.2 99 97.2 03/10/25 08:00 Room Air* 0 21 Total Intake and Output 03/09/25 03/09/25 03/10/25 15:00 23:00 07:00 Intake Total 700 ml Balance 700 ml medications Current Medications Medications Dose Ordered Sig/Rebecca Route Start Time Stop Time Status Last Admin Dose Admin Warfarin Sodium RX PROTOCOL PER PHARMACY PO 03/09/25 12:15 Sodium Chloride 1,000 ml @ 60 mls/hr [id number] IV 03/09/25 12:15 03/09/25 12:27 60 MLS/HR Acetaminophen/ Hydrocodone Bitart 1 tab Q4HP PRN PO 03/09/25 12:15 03/09/25 19:49 1 TAB Acetaminophen 650 mg Q6HP PRN PO 03/09/25 12:15 Amlodipine Besylate 10 mg DAILY PO 03/10/25 10:00 03/10/25 08:43 10 MG Hydroxyzine Pamoate 50 mg BID PO 03/09/25 22:00 03/10/25 08:42 50 MG Losartan Potassium 100 mg DAILY PO 03/10/25 10:00 03/10/25 08:43 100 MG Metoprolol Succinate 25 mg DAILY PO 03/10/25 10:00 03/10/25 08:43 25 MG Oxycodone HCl 10 mg TIDPRN PRN PO 03/09/25 13:00 03/10/25 05:42 10 MG Hydromorphone HCl 0.5 mg Q6HPRN PRN IV 03/09/25 13:30 03/10/25 08:52 0.5 MG Diagnostic Test (Pha) 1 strip ACHS 03/09/25 17:00 03/10/25 11:33 1 STRIP Insulin Human Regular ACHS SC 03/09/25 17:00 03/10/25 06:08 2 UNITS Dextrose 50 ml UD PRN IV 03/09/25 13:30 Examination General Appearance: Alert, Oriented X3, Cooperative, mild distress (Of his left calf) HEENT: Atraumatic, PERRLA, Mucous membr. moist/pink Respiratory: Clear to auscultation, Normal air movement Cardiovascular: Normal S1, Normal S2, No murmurs Abdominal: Normal bowel sounds, Soft, No hepatospenomegaly, No masses Extremities: Pain and edema on the left calf. No clubbing, No cyanosis, Normal pulses, No tenderness/swelling Skin: No rashes, No breakdown Neuro: Normal gait, Normal speech, Strength at 5/5 X4 ext, Normal tone, Sensation intact, Cranial nerves 3-12 NL Psych/Mental Status: Mental status NL, Mood NL laboratory and microbiology Laboratory Tests 03/10/25 05:42 Test 03/10/25 05:42 Range/Units Serum Glucose 123 H 74-106 mg/dL Problem List/Assessment/Plan Problem List/Assessment/Plan #Acute on chronic DVT of the left lower extremity History of DVT currently on Coumadin Patient reports IVC filter about 7-8 years ago Admit to telemetry unit for continuous monitoring INR is 2.95 On Hold Coumadin Heparin drip #Acute leg swelling possible due to insect bite. CT scan with contrast #Type 2 DM with hyperglycemia Regular insulin mild SS a.c. and HS Accu-Cheks per protocol #Chronic Hypertensive heart disease systolic/diastolic failure Continue antihypertensive agent Continue to monitor #Chronic Dyslipidemia Managed only with diet. DVT prophylaxis: patient on heparin drip Diet: Cardiac diet Goals of care discussed with the patient for more than 35 minutes: Code Status: Full code PCP: Harry Hunter Case discussed with Dr. Ruiz The plan was discussed with patient, the patient agrees with the current plan. Plan discussed with: Patient Date of Service: Mar 10, 2025 Billing Provider: CHRISTIANO FORD MD Common Visit Codes: [id number] INP/OBS CARE(HIGH) SIMBA HARP RESIDENT Mar 10, 2025 11:50
[2025-03-10 14:20] LABS: INR 2.64 (0.9-1.15); Partial Thromboplastin Time 48.8 SEC (24.5-34.5); Prothrombin Time 25.4 sec (9.3-11.8)
[2025-03-10] MEDS ORDERED: IOHEXOL 300 MG/ML 100ML BOTTLE IJ ONE (15:28)
--- NOTE | 2025-03-10 15:35 | DVH ---
INDICATION: Left leg swelling COMPARISON: US LT LOWER DVT on DOS: 03/09/25, CT CT L KNEE WO CONTRAST on DOS: 01/07/25, US LT LOWER DVT on DOS: 01/05/25, XY L KNEE 2V XRAY on DOS: 01/05/25, US LT LOWER DVT on DOS: 09/16/24 TECHNIQUE: CT of the left lower extremity was performed with contrast. Volume transverse images were obtained and reconstructed in multiple planes using bone and soft tissue algorithms. Radiation Dose Information: CT Dose: CTDI volume is 25.26 mGy. Dose-length product is 1826.44 mGy*cm FINDINGS: The alignment is normal. The joint spaces are normal. There is no fracture, dislocation or aggressive osseous lesion. There is no joint effusion. The soft tissues are normal. Prominent varicosities are present, unchanged. IMPRESSION: No acute or suspicious findings. All CT scans at this medical facility are performed using dose modulation techniques as appropriate t o a performed exam including the following: Automated exposure control was utilized; adjustment of th e MA and/or KV according to patient size; and use of iterative reconstruction technique.
[2025-03-10] MEDS: HEPARIN DRIP/D5W 100UNITS/ML 250 ML IV SCH (16:17)
[2025-03-10] MEDS ORDERED: WARFARIN SODIUM 5 MG TAB PO ONE (17:00)
[2025-03-10 23:34] LABS: INR 2.45 (0.9-1.15); Prothrombin Time 23.8 sec (9.3-11.8)
[2025-03-10 23:38] LABS: Partial Thromboplastin Time 111.1 SEC (24.5-34.5)
[2025-03-11 01:00] VITALS: BP 111/69; PULSE 71; RESP 18; O2SAT 97
[2025-03-11] MEDS: HEPARIN DRIP/D5W 100UNITS/ML 250 ML IV SCH (01:04)
[2025-03-11 08:00] VITALS: PULSE 77
[2025-03-11 08:44] LABS: Hematocrit 45.2 % (41.0-53.0); Hemoglobin 15.7 g/dL (13.5-17.5); Mean Corpuscular Hemoglobin 30.5 pg (28.0-32.0); Mean Corpuscular Volume 88.0 fL (80.0-100.0); Nucleated Red Blood Cells % 0.2 %
[2025-03-11 08:58] LABS: INR 2.02 (0.9-1.15); Partial Thromboplastin Time 65.5 SEC (24.5-34.5); Prothrombin Time 20.0 sec (9.3-11.8)
[2025-03-11 09:00] VITALS: BP 131/92; PULSE 82; RESP 18; TEMP 98; O2SAT 96
[2025-03-11 09:00] LABS: Alanine Aminotransferase 28 U/L (7-40); Albumin 4.4 g/dL (3.2-4.8); Alkaline Phosphatase 89 U/L (46-116); Anion Gap 9 (5-15); BUN/Creatinine Ratio 13.5 (10.0-20.0); Bilirubin, Total 0.5 mg/dL (0.2-1.0); Blood Urea Nitrogen 12 mg/dL (9-23); Calcium 9.2 mg/dL (8.7-10.4); Carbon Dioxide 28 mmol/L (20-31); Chloride 103 mmol/L (98-107); Potassium 4.2 mmol/L (3.5-5.1); Sodium 140 mmol/L (136-145); Total Protein 7.4 g/dL (5.7-8.2)
[2025-03-11 09:01] LABS: Glucose 109 mg/dL (74-106)
--- NOTE | 2025-03-11 09:13 | CONS ---
Pharmacy Clinical Information: HEPARIN DRIP, DVT PROTOCOL 03/11 @0827 APTT = 65.5, NO BOLUS NO CHANGE (CONTINUE AT 17 ML/HR) NEXT APTT SCHEDULED FOR 1400 PER RX PROTOCOL CONFIRMED AND READ BACK WITH RN CARMELA HARDY [facility] RESIDENT Mar 11, 2025 09:13
[2025-03-11 12:07] VITALS: BP 135/97; PULSE 75; RESP 18
[2025-03-11] MEDS ORDERED: WARF-115 PO (14:33)
[2025-03-11] MEDS ORDERED: AUG875T PO (14:33)
--- NOTE | 2025-03-11 18:19 | DVHDSRES ---
Discharge Summary Date of Admission Resident Creating Document: SIMBA HARP RESIDENT Mar 09, 2025 at 12:08 Date of Discharge: Mar 11, 2025 Wounds: No wounds Labs/Diagnostic Data: Laboratory Results Test 03/11/25 11:05 03/11/25 08:27 03/09/25 13:27 POC Glucose 146 mg/dl (70-106) White Blood Count 5.4 10^3/uL (4.4-10.8) Red Blood Count 5.14 10^6/uL (4.5-5.90) Hemoglobin 15.7 g/dL (13.5-17.5) Hematocrit 45.2 % (41.0-53.0) Mean Corpuscular Volume 88.0 fL (80.0-100.0) Mean Corpuscular Hemoglobin 30.5 pg (28.0-32.0) Mean Corpuscular Hemoglobin Concent 34.6 g/dL (32.0-36.0) Red Cell Distribution Width 13.3 % (11.8-14.3) Platelet Count 204 10^3/uL (140-450) Mean Platelet Volume 7.6 fL (6.9-10.8) Neutrophils (%) (Auto) 65.8 % (37.0-80.0) Lymphocytes (%) (Auto) 26.1 % (10.0-50.0) Monocytes (%) (Auto) 6.4 % (0.0-12.0) Eosinophils (%) (Auto) 1.1 % (0.0-7.0) Basophils (%) (Auto) 0.6 % (0.0-2.0) Neutrophils # (Auto) 3.5 10 ^3/uL (1.6-8.6) Lymphocytes # (Auto) 1.4 10 ^3/uL (0.4-5.4) Monocytes # (Auto) 0.3 10 ^3/uL (0-1.3) Eosinophils # (Auto) 0.1 10 ^3/uL (0-0.8) Basophils # (Auto) 0 10 ^3/uL (0-0.2) Nucleated Red Blood Cells 0.2 % Prothrombin Time 20.0 sec (9.3-11.8) Prothrombin Time INR 2.02 (0.9-1.15) Activated Partial Thromboplast Time 65.5 SEC (24.5-34.5) Sodium Level 140 mmol/L (136-145) Potassium Level 4.2 mmol/L (3.5-5.1) Chloride Level 103 mmol/L (98-107) Carbon Dioxide Level 28 mmol/L (20-31) Anion Gap 9 (5-15) Blood Urea Nitrogen 12 mg/dL (9-23) Creatinine 0.89 mg/dL (0.700-1.30) Glomerular Filtration Rate Calc 103 mL/min (>90) BUN/Creatinine Ratio 13.5 (10.0-20.0) Serum Glucose 109 mg/dL (74-106) Calcium Level 9.2 mg/dL (8.7-10.4) Total Bilirubin 0.5 mg/dL (0.2-1.0) Aspartate Amino Transferase (AST) 27 U/L (13-40) Alanine Aminotransferase (ALT) 28 U/L (7-40) Alkaline Phosphatase 89 U/L (46-116) Total Protein 7.4 g/dL (5.7-8.2) Albumin 4.4 g/dL (3.2-4.8) Urine Color Yellow (Yellow) Urine Clarity Clear (Clear) Urine pH 5.5 (5.0-9.0) Urine Specific [place] 1.024 (1.001-1.035) Urine Protein Trace (Negative) Urine Ketones Negative (Negative) Urine Blood Negative /uL (Negative) Urine Nitrite Negative (Negative) Urine Bilirubin Negative (Negative) Urine Urobilinogen Normal mg/dL (Negative) Urine Leukocyte Esterase Negative /uL (Negative) Urine RBC <1 /hpf (0 - 3) Urine Microscopic WBC < 1 /HPF (0-3) Urine Squamous Epithelial Cells None seen /hpf (<5) Urine Bacteria None seen /hpf (None Seen) Urine Glucose Normal mg/dL (Normal) Other Laboratory Tests 03/11/25 08:27 Brief Hx & Hospital Course: Adrian Zuniga Is a 54-year-old male with history of hypertension, hyperlipidemia, DM type 2, lane insufficiency and recurrent DVTs. The patient presents to [facility] ED with chief complaint of 2 days of left lower extremity pain 8/10, localized in the calf, continues, stabbing-like, irradiated diffusely in the leg, no relieving or exacerbating factors; the pain was associated with edema and warmth. On further questioning, the patient report that he could had been bitten by an insect and he noticed a punctuated lesion surrounding by edema. The patient reports that he is currently on Coumadin for recurrent DVTs and had a thrombectomy in the past. The patient denies fever, chills, headache, dizziness, palpitations, chest pain, shortness of breast, nausea, vomiting, abdominal pain, diarrhea, constipation and other associated symptoms. The patient was admitted for further diagnosed and management. Past medical history: Cardiovascular: HTN, hyperipidemia Endocrine: Diabetes. DVT Past Surgical History: Thrombectomy Family History: Hypertension Social history: Smoke: No. Alcohol: none. Drugs: None. Lives: with Family. Domestic Violence: Neg Hospital course: on 03/10/25, the patient was evaluated and examined. Labs, VS and chart was reviewed. Warfarin levels are within therapeutic limits. The patient report left leg pain 7/10 after analgesia, he does not has new complaints. The US doppler showed: Non-occlusive thrombus in the left lower extremity as detailed above. May be subacute to chronic. CT leg was requested today. The patient was started on heparin drip. We will follow up the progress of this patient closely. 03/11/25, the patient was evaluated and examined. Labs, VS and chart was reviewed. The patient report significant improvement on swelling and pain. The patient report left leg pain 2/10. Today, he does not has new complaints. CT leg reports no tissue effusion. Due to clinical improvement, the patient will be discharged home today with oral antibiotics a few will follow with PCP and hematology in 1 week ROS: Constitutional: denies: chills, diaphoresis, fatigue, fever, malaise, sweats, weakness, others EENTM: denies: blurred vision, double vision, ear bleeding, ear discharge, ear drainage, ear pain, ear ringing, eye pain, eye redness, hearing loss, mouth pain, mouth swelling, nasal discharge, nose bleeding, nose congestion, nose pain, photophobia, tearing, throat pain, throat swelling, voice changes, others Respiratory: denies: cough, hemoptysis, orthopnea, SOB at rest, shortness of breath, SOB with excertion, stridor, wheezing, others Cardiovascular: denies: chest pain, dizzy spells, diaphoresis, Dyspnea on exertion, edema, irregular heart beat, left arm pain, lightheadedness, palpitations, PND, syncope, others Gastrointestinal: reports: Improvement, no new nausea, vomiting or diarrhea; denies: abdomen distended, abdominal pain, blood streaked bowels, constipated, diarrhea, dysphagia, difficulty swallowing, hematemesis, melena, poor appetite, poor fluid intake, rectal bleeding, rectal pain, others Genitourinary: denies: burning, dysuria, flank pain, frequency, hematuria, incontinence, penile discharge, penile sore, pain, testicle pain, testicle swelling, urgency, others Neurological: reports: No headache; denies: dizziness, fainting, left sided numbness, left sided weakness, numbness, paresthesia, pre-existing deficit, right sided numbness, right sided weakness, seizure, speech problems, tingling, tremors, weakness, others Musculoskeletal: Left leg pain and swelling improved. denies: back pain, gout, joint pain, joint swelling, muscle pain, muscle stiffness, neck pain, others Integumetry: denies: bruises, change in color, change in hair/nails, dryness, laceration, lesions, lumps, rash, wounds, others Allergic/Immunocompromised: denies: Difficulty Healing, Frequent Infections, Hives, Itching, others Hematologic/Lymphatic: denies: anemia, blood clots, easy bleeding, easy bruising, swollen glands, others Endocrine: denies: excessive hunger, excessive sweating, excessive thirst, excessive urination, flushing, intolerance to cold, intolerance to heat, unexplained weight gain, unexplained weight loss, others Psychiatric: denies: anxiety, bipolar disorder, depression, hopeless, panic disorder, schizophrenia, sleepless, suicidal, others All Other Systems: Reviewed and Negative. General Appearance: Alert, Oriented X3, Cooperative, mild distress (Of his left calf) HEENT: Atraumatic, PERRLA, Mucous membr. moist/pink Respiratory: Clear to auscultation, Normal air movement Cardiovascular: Normal S1, Normal S2, No murmurs Abdominal: Normal bowel sounds, Soft, No hepatospenomegaly, No masses Extremities: No clubbing, No cyanosis, Normal pulses, No tenderness/swelling Skin: No rashes, No breakdown Neuro: Normal gait, Normal speech, Strength at 5/5 X4 ext, Normal tone, Sensation intact, Cranial nerves 3-12 NL Psych/Mental Status: Mental status NL, Mood NL Consults/Reason for consult IR: evaluation for trombectomy Operations or Procedures CLINICAL HISTORY: DVT. COMPARISON: US LT LOWER DVT on DOS: 01/05/25, US BILAT LOWER DVT on DOS: 09/20/24, US LT LOWER DVT on DOS: 09/16/24 TECHNIQUE: Compression evaluation and color doppler evaluation of the deep veins of the left lower extremity was performed. Evaluation for augmentation and flow characteristics with doppler pulse wave imaging was performed. Realtime grayscale and Doppler ultrasound images of the deep venous structures with spectral waveform analysis were obtained. FINDINGS: This examination demonstrates nonocclusive thrombus involving the left common femoral, deep femoral, femoral, and popliteal veins with flow demonstrated around the areas of thrombus. The calf veins were not evaluated. IMPRESSION: Nonocclusive thrombus in the left lower extremity as detailed above. May be subacute to chronic. Findings were reported to Dr. Lan in the emergency department by the tobacco sprayer at 9:25 a.m. PST on 03/09/2025. EDURE(s): CXRP - CHEST PORTABLE REASON: sob ORDER NUMBER(s): [id number], ACCESSION NUMBER(s): [id number] CHEST RADIOGRAPH Indication: sob Technique: Single frontal view of the chest was obtained Comparison: XY CHEST PORTABLE on DOS: 01/05/25, XY CHEST PORTABLE on DOS: 09/20/24, XY CHEST XRAY 1 VIEW on DOS: 08/13/24 FINDINGS: Lines and Tubes: None Lungs: No focal consolidation. Pleura: No effusion. No pneumothorax. Cardiomediastinal contours: Unremarkable Bones: No acute osseous abnormality. IMPRESSION: 1. No acute cardiopulmonary disease. EDURE(s): LE1CR - LT LOWER EXTREMITY W CONTRAS REASON: Left leg swelling ORDER NUMBER(s): [id number], ACCESSION NUMBER(s): [id number] INDICATION: Left leg swelling COMPARISON: US LT LOWER DVT on DOS: 03/09/25, CT CT L KNEE WO CONTRAST on DOS: 01/07/25, US LT LOWER DVT on DOS: 01/05/25, XY L KNEE 2V XRAY on DOS: 01/05/25, US LT LOWER DVT on DOS: 09/16/24 TECHNIQUE: CT of the left lower extremity was performed with contrast. Volume transverse images were obtained and reconstructed in multiple planes using bone and soft tissue algorithms. Radiation Dose Information: CT Dose: CTDI volume is 25.26 mGy. Dose-length product is 1826.44 mGy*cm FINDINGS: The alignment is normal. The joint spaces are normal. There is no fracture, dislocation or aggressive osseous lesion. There is no joint effusion. The soft tissues are normal. Prominent varicosities are present, unchanged. IMPRESSION: No acute or suspicious findings. All CT scans at this medical facility are performed using dose modulation techniques as appropriate to a performed exam including the following: Automated exposure control was utilized; adjustment of the MA and/or KV according to patient size; and use of iterative reconstruction technique. Condition at Discharge: Stable Final Diagnosis/Problems List #Acute on chronic DVT of the left lower extremity #Acute leg swelling possible due to insect bite. #Type 2 DM with hyperglycemia #Chronic Hypertensive heart disease systolic/diastolic failure #Chronic Dyslipidemia Discharge Disposition: Home SNF Discharge Will this Physician continue t: No Discharge Instruct/Medications Diet: Consistent carbohydrate, Cardiac 2g Na,low cholest Activity: No Restrictions, As Tolerated Follow Up/Referral: F/U with PCP in 1 week F/U with hematology Medications: Augmentin 875/125mg po bid x 5 days Continue with cumarin and home medications as below: Scheduled Amlodipine Besylate (Amlodipine Besylate), 1 TAB PO DAILY, (Reported) Amoxicillin & Pot Clavulanate (Augmentin Tablet), 875 MG PO BID Hydroxyzine HCl (Hydroxyzine Hydrochloride), 1 TAB PO BID, (Reported) Insulin Glargine (Lantus), 38 UNIT SC BID, (Reported) Losartan Potassium (Losartan Potassium), 1 TAB PO DAILY, (Reported) Metoprolol Succinate (Metoprolol Succinate Er), 1 TAB PO DAILY, (Reported) Warfarin Sodium (Warfarin Sodium), 1 TAB PO DAILY, (Reported) Warfarin Sodium (Warfarin Sodium), 10 MG PO DAILY Discontinued Medications Enoxaparin Sodium (Lovenox), 130 MG SC Q12HR Enoxaparin Sodium (Lovenox), 100 MG SC BID Gemfibrozil (Gemfibrozil), (Reported) Lidocaine (Lidoderm 5% Topical Patch), 1 PATCH TOP DAILY PRN Lisinopril (Lisinopril), (Reported) Oxycodone HCl (Oxycodone Hydrochloride), 10 MG PO TIDPRN PRN, (Reported) Discharge Statement: "Patient was advised to return to the ER or call 911 if any headaches, dizziness, shortness of breath, chest pain, abdominal pain, bleeding, fevers, or worsening of medical condition. Patient was counseled about treatment plan, medications, possible side effects, patientverbalized understanding. All questions were answered to the best of my ability. This discharge took greater then 30 minutes in planning, reviewing documentation, counseling the patient, and discussing with other team members." ASSESSMENT ASSESSMENT Assessment #Acute on chronic DVT of the left lower extremity #Acute leg swelling possible due to insect bite. #Type 2 DM with hyperglycemia #Chronic Hypertensive heart disease systolic/diastolic failure #Chronic Dyslipidemia Date of Service: Mar 11, 2025 Billing Provider: CHRISTIANO FORD MD Common Visit Codes: 34413-BAQ/OBS DISCH DAY >30min SIMBA HARP RESIDENT Mar 11, 2025 18:19
== END 2025-03-11 14:58 | disposition home or self-care (01) | DRG 197 ==
LOC: ER 07:49 → OVERFLOW 12:08 → TELE-EAST 12:12
PROVIDERS: ADMIT Student in an Organized Health Care Education/Training Program; ATTEND Student in an Organized Health Care Education/Training Program
DX: I82.412 Acute embolism and thrombosis of left femoral vein (principal); I50.42 Chronic combined systolic (congestive) and diastolic (congestive) heart failure; I11.0 Hypertensive heart disease with heart failure; E11.65 Type 2 diabetes mellitus with hyperglycemia; E78.5 Hyperlipidemia, unspecified; Z79.01 Long term (current) use of anticoagulants; Z88.5 Allergy status to narcotic agent; Z82.49 Family history of ischemic heart disease and other diseases of the circulatory system; W57.XXXA Bitten or stung by nonvenomous insect and other nonvenomous arthropods, initial encounter; Y93.89 Activity, other specified; Y92.89 Other specified places as the place of occurrence of the external cause; M79.89 Other specified soft tissue disorders
CPT/HCPCS: 36415; 71045; 73701; 80048; 80053; 81001; 82962; 85025; 85610; 85730; 93971; G0378; J1815

== ENCOUNTER 2025-04-25 10:02 | Inpatient (IN) | payer MEDICAID ==
[~2025-04-25] VITALS: Ht 188 cm; Wt 136.1 kg
[~2025-04-25 10:02] MED LIST changes: +AUG875T PO; -ENO100SY SC; -ENO150SY SC; -GEMF-66; -LIDO5DIS21 TOP; -LISI10TA34; -OXYC-998 PO
--- NOTE | 2025-04-25 10:15 | ECG ---
[facility] Test Date: 2025-04-25 Test Time: 10:14:21 Pat Name: PANCHO JASMINE Department: ED Room: [address] [place] [address] Gender: M News Video Editor: MAYCO : 1970 Requested By: TANNER RAND Order Number: [id number] Reading MD: Blake Alcantara Measurements Intervals Ord Rate: 97 P: 32 TN: 154 QRS: 90 QRSD: 94 T: 7 QT: 345 QTc: 439 Interpretive Statements Sinus rhythm Borderline right axis deviation Abnormal R-wave progression, late transition ST elev, probable normal early repol pattern Baseline wander in lead(s) I,II,aVR Electronically Signed On 04-28-2025 15:22:34 PST by Blake Alcantara Please click the below link to view image of tracing.
[2025-04-25 11:06] LABS: Hematocrit 44.2 % (41.0-53.0); Hemoglobin 15.5 g/dL (13.5-17.5); Mean Corpuscular Hemoglobin 30.7 pg (28.0-32.0); Mean Corpuscular Volume 87.6 fL (80.0-100.0); Nucleated Red Blood Cells % 0.2 %
[2025-04-25 11:13] LABS: Chloride 105 mmol/L (98-107); Potassium 4.2 mmol/L (3.5-5.1); Sodium 137 mmol/L (136-145)
[2025-04-25 11:14] LABS: Anion Gap 10 (5-15); Calcium 9.3 mg/dL (8.7-10.4); Carbon Dioxide 22 mmol/L (20-31)
[2025-04-25 11:19] LABS: BUN/Creatinine Ratio 15.6 (10.0-20.0); Blood Urea Nitrogen 17 mg/dL (9-23)
[2025-04-25 11:20] LABS: Glucose 184 mg/dL (74-106)
[2025-04-25] MEDS: OXYCODONE W/ ACETAMINOPHEN 5/325MG TABLET PO ONE (11:22)
--- NOTE | 2025-04-25 11:30 | DVH ---
CHEST RADIOGRAPH Indication: shortness of breath Technique: Single frontal view of the chest was obtained COMPARISON: XY CHEST PORTABLE on DOS: 03/09/25, XY CHEST PORTABLE on DOS: 01/05/25, XY CHEST PORTABLE on DOS: 09/20/24, XY CHEST XRAY 1 VIEW on DOS: 08/13/24, XY CHEST TWO VIEWS ROUTINE on DOS: 08/07/23 FINDINGS: Lines and Tubes: None Lungs: Increased interstital prominence. This may represent pulmonary vascular congestion and/or viral pneumonia. Pleura: No effusion.No pneumothorax. Cardiomediastinal contours: Unremarkable Bones: Unremarkable IMPRESSION: Increased interstital prominence. This may represent pulmonary vascular congestion and/or viral pneumonia.
--- NOTE | 2025-04-25 11:40 | ED.PDOC ---
History of Present Illness HPI Comments This is a 54-year-old male with past medical history of recurrent DVTs on warfarin s/p IVC filter, hypertension, hyperlipidemia, diabetes mellitus type 2 and chronic pain who presented to the ED with the chief complaint of shortness of breath. The patient mentioned he started having shortness of breath with r outine activities like dressing up since 2 days. He also complained of spasmodic pain in the left leg since this morning. He denies any chest pain or tightness in the chest, fever, chills, cough or recent sick contacts. He has also had left ear ache since the last 3 weeks. Chief Complaint: Shortness of Breath Time Seen by MD: 10:30 Primary Care Provider: ASHLYN Allergies: Coded Allergies: Morphine (Verified Allergy, Severe, 09/05/16) Home Meds Active Scripts Warfarin Sodium (Warfarin Sodium) 10 Mg Tab, 10 MG PO DAILY for 30 Days, #30 TAB 3 Refills Prov:KAVON WHITE RESIDENT 03/11/25 Amoxicillin & Pot Clavulanate (AUGMENTIN TABLET) 875 Mg Tb, 875 MG PO BID for 5 Days, #10 TAB Prov:KAVON WHITE RESIDENT 03/11/25 Reported Medications Hydroxyzine HCl (Hydroxyzine Hydrochloride) 50 Mg Tab, 1 TAB PO BID 08/13/24 Losartan Potassium (Losartan Potassium) 100 Mg Tab, 1 TAB PO DAILY 08/13/24 Amlodipine Besylate (Amlodipine Besylate) 10 Mg Tab, 1 TAB PO DAILY 08/13/24 Metoprolol Succinate (Metoprolol Succinate Er) 25 Mg Tab, 1 TAB PO DAILY 08/13/24 Warfarin Sodium (Warfarin Sodium) 10 Mg Tab, 1 TAB PO DAILY 08/13/24 Insulin Glargine (Lantus) 100 Unit/Ml Inj, 38 UNIT SC BID, INJ 12/28/17 Information Source: Patient Mode of Arrival: Wheelchair Severity: Mild Timing: Days Duration: Since onset Prehospital treatment: None Past Medical History PAST MEDICAL HISTORY: DM, High Lipids, HTN Surgical History: Denies all surgeries Family History Family History: Reviewed,noncontributory to illness, Unknown, Family hx of HTN Social History Smoker: Non-Smoker Alcohol: Denies ETOH Use Drugs: Denies Drug Use Lives In: Home Constitutional: denies: chills, diaphoresis, fatigue, fever, malaise, sweats, weakness, others EENTM: reports: ear pain (left ear pain); denies: blurred vision, double vision, ear bleeding, ear discharge, ear drainage, ear ringing, eye pain, eye redness, hearing loss, mouth pain, mouth swelling, nasal discharge, nose bleeding, nose congestion, nose pain, photophobia, tearing, throat pain, throat swelling, voice changes, others Respiratory: reports: SOB with excertion; denies: cough, hemoptysis, orthopnea, SOB at rest, shortness of breath, stridor, wheezing, others Cardiovascular: denies: chest pain, dizzy spells, diaphoresis, Dyspnea on exertion, edema, irregular heart beat, left arm pain, lightheadedness, palpitations, PND, syncope, others Gastrointestinal: denies: abdomen distended, abdominal pain, blood streaked bowels, constipated, diarrhea, dysphagia, difficulty swallowing, hematemesis, melena, nausea, poor appetite, poor fluid intake, rectal bleeding, rectal pain, vomiting, others Genitourinary: denies: burning, dysuria, flank pain, frequency, hematuria, incontinence, penile discharge, penile sore, pain, testicle pain, testicle swelling, urgency, others Neurological: denies: dizziness, fainting, headache, left sided numbness, left sided weakness, numbness, paresthesia, pre-existing deficit, right sided numbness, right sided weakness, seizure, speech problems, tingling, tremors, weakness, others Musculoskeletal: denies: back pain, gout, joint pain, joint swelling, muscle pain, muscle stiffness, neck pain, others Integumetry: denies: bruises, change in color, change in hair/nails, dryness, laceration, lesions, lumps, rash, wounds, others Allergic/Immunocompromised: denies: Difficulty Healing, Frequent Infections, Hives, Itching, others Hematologic/Lymphatic: denies: anemia, blood clots, easy bleeding, easy bruising, swollen glands, others Endocrine: denies: excessive hunger, excessive sweating, excessive thirst, excessive urination, flushing, intolerance to cold, intolerance to heat, unexplained weight gain, unexplained weight loss, others Psychiatric: denies: anxiety, bipolar disorder, depression, hopeless, panic disorder, schizophrenia, sleepless, suicidal, others Physical Exam General Appearance: Obese HEENT: Normal ENT Inspection Neck: Non-Tender, Normal, Normal Inspection Respiratory: Chest Non-Tender, Normal Breath Sounds Cardiovascular: No Edema, No Murmur, Regular Rate/Rhythm Breast Exam: Normal Gastrointestinal: Normal Bowel Sounds Genitalia: Deferred Pelvic: Deferred Rectal: Deferred Extremities: Leg edema, Normal range of motion, Swelling, Other (multiple tortuous dilated veins on left lower extremity) Neurologic: No Motor Deficits, Normal Affect, Normal Mood, No Sensory Deficits Cerebellar Function: Normal Reflexes: Normal Skin: Normal Color Lymphatic: No Adenopathy Was a procedure done? Was a procedure done?: No Differential Dx Considerations may include: rule out PE, ACS, pneumonia X-Ray, Labs, Meds, VS Vital Signs Date Time Temp Pulse Resp B/P (MAP) Pulse Ox O2 Delivery O2 Flow Rate FiO2 04/25/25 10:14 97 04/25/25 10:05 97.8 100 20 148/106 95 97.8 Lab Test 04/25/25 10:59 Range/Units White Blood Count 4.8 4.4-10.8 10^3/uL Red Blood Count 5.04 4.5-5.90 10^6/uL Hemoglobin 15.5 13.5-17.5 g/dL Hematocrit 44.2 41.0-53.0 % Mean Corpuscular Volume 87.6 80.0-100.0 fL Mean Corpuscular Hemoglobin 30.7 28.0-32.0 pg Mean Corpuscular Hemoglobin Concent 35.0 32.0-36.0 g/dL Red Cell Distribution Width 13.3 11.8-14.3 % Platelet Count 248 140-450 10^3/uL Mean Platelet Volume 8.1 6.9-10.8 fL Neutrophils (%) (Auto) 69.9 37.0-80.0 % Lymphocytes (%) (Auto) 22.9 10.0-50.0 % Monocytes (%) (Auto) 6.0 0.0-12.0 % Eosinophils (%) (Auto) 0.6 0.0-7.0 % Basophils (%) (Auto) 0.6 0.0-2.0 % Neutrophils # (Auto) 3.3 1.6-8.6 10 ^3/uL Lymphocytes # (Auto) 1.1 0.4-5.4 10 ^3/uL Monocytes # (Auto) 0.3 0-1.3 10 ^3/uL Eosinophils # (Auto) 0 0-0.8 10 ^3/uL Basophils # (Auto) 0 0-0.2 10 ^3/uL Nucleated Red Blood Cells 0.2 % D-Dimer, Quantitative < 0.19 0.0-0.49 mg/L FEU Sodium Level 137 136-145 mmol/L Potassium Level 4.2 3.5-5.1 mmol/L Chloride Level 105 98-107 mmol/L Carbon Dioxide Level 22 20-31 mmol/L Anion Gap 10 5-15 Blood Urea Nitrogen 17 9-23 mg/dL Creatinine 1.09 0.700-1.30 mg/dL Glomerular Filtration Rate Calc 82 >90 mL/min BUN/Creatinine Ratio 15.6 10.0-20.0 Serum Glucose 184 H 74-106 mg/dL Calcium Level 9.3 8.7-10.4 mg/dL Current Medications Medications (Trade) Dose Ordered Sig/Rebecca Route Start Time Stop Time Status Last Admin Oxycodone/ Acetaminophen (Percocet 5/ 325MG Tablet) 1 tab ONCE ONCE PO 04/25/25 11:00 04/25/25 11:01 DC 04/25/25 11:22 Time of 1ST Reevaluation: 12:00 Reevaluation 1ST: Unchanged Patient Education/Counseling: Diagnosis, Treatment, Prognosis Family Education/Counseling: No Family Present SEPSIS Sepsis Screen Date sepsis recognized/suspect: Apr 25, 2025 Time Sepsis recognized/suspect: 1007 Recent Procedure: No On Antibiotic Therapy: No Respiratory Rate >20: No Heart Rate >90: Yes Temp<36 C (96.8 F) or >38.3 C: No SBP <90 or MAP <65 mmHG: No New Acute Mental Status Change: No Is the patient on CPAP, BIPAP,: No Physician Orders Chest Xray 1 View (04/25/25 10:50) Vital Signs Date Time Temp Pulse Resp B/P (MAP) Pulse Ox O2 Delivery O2 Flow Rate FiO2 04/25/25 10:14 97 04/25/25 10:05 97.8 100 20 148/106 95 97.8 Laboratory Tests Test 04/25/25 10:59 White Blood Count 4.8 10^3/uL (4.4-10.8) Medications Medications Dose Ordered Sig/Rebecca Route Start Time Stop Time Status Last Admin Dose Admin Oxycodone/ Acetaminophen 1 tab ONCE ONCE PO 04/25/25 11:00 04/25/25 11:01 DC 04/25/25 11:22 Departure 1 Departure Time of Disposition: 12:00 Impression: Primary Impression: Shortness of breath Additional Impressions: Chronic deep vein thrombosis of left lower extremity HTN (hypertension) Diabetes mellitus Disposition: 30 STILL A PATIENT Condition: Fair Critical Care Note Critical Care Time?: No Stability Stability form required: PB Bettencourt RESIDENT Apr 25, 2025 11:40
--- NOTE | 2025-04-25 15:10 | DVHHPRES ---
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 Patient was adamant on getting Dilaudid. 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 Past Surgical History: Thrombectomy, right lower leg vascular bypass surgery. lower back surgery with titanium implant [address] Mccarthy. Family History: Hypertension , likely noncontributory to the admission, denies any familial hypercoagulable disorder. Social history: Smoke: No. Alcohol: none. Drugs: None. cannabinoids, and previous ETOH. Lives: with Family. Review of Systems Constitutional: Yes: Weakness, Malaise; No: Fever, Chills, Sweats, Other Eyes: No: Pain, Vision change, Conjunctivae inflammation, Eyelid inflammation, Other, Redness ENT: No: Ear pain, Ear discharge, Nose pain, Nose discharge, Nose congestion, Mouth pain, Mouth swelling, Throat pain, Throat swelling, Other Respiratory: Shortness of breath, SOB with excertion; No: Cough, Dry, Wheezing, Hemoptysis, Pleuritic Pain, Sputum, Wheezing, Other Cardiovascular: No: Chest Pain, Palpitations, Orthopnea, Paroxysmal Noc. Dyspnea, Edema, Lt Headedness, Other Gastrointestinal: No: Nausea, Vomiting, Abdominal Pain, Diarrhea, Constipation, Melena, Hematochezia, Other Genitourinary: No Dysuria, No Frequency, No Incontinence, No Hematuria, No Retention, No Other Musculoskeletal: back pain, leg pain; No: other, neck pain, shoulder pain, arm pain, hand pain, foot pain Skin: No: Rash, Lesions, Jaundice, Bruising, Other Neurological: No: Weakness, Numbness, Incoordination, Change in speech, Confusion, Seizures, Other Allergies: Coded Allergies: Morphine (Verified Allergy, Severe, 09/05/16) Exam Vital Signs Vital Signs Date Time Temp Pulse Resp B/P (MAP) Pulse Ox O2 Delivery O2 Flow Rate FiO2 04/25/25 14:05 98.2 87 18 155/97 (116) 96 98.2 04/25/25 11:34 Room Air General Appearance: Alert, Oriented X3, Cooperative, mild distress HEENT: Atraumatic, PERRLA, EOMI, Other (dry mucosa) Respiratory: Clear to auscultation, Normal air movement Cardiovascular: Regular rate, Normal S1, Normal S2, No murmurs Abdominal: Normal bowel sounds, Soft, No tenderness, No hepatospenomegaly, No masses Extremities: No clubbing, No cyanosis, Normal pulses, Other (swelling and tenderness of b/l calf , left calf more tender. dialated veins noted. peripheral pulses present. no edema. back lumbar surgical scar and mild parasternal tenderness L-3 to L5 ) Skin: No rashes, No breakdown, No significant lesion Neuro: Normal gait, Normal speech, Strength at 5/5 X4 ext, Normal tone, Sensation intact, Cranial nerves 3-12 NL, Reflexes 2+ Psych/Mental Status: Mental status NL, Mood NL Labs/Xrays Labs Test 04/25/25 10:59 Range/Units White Blood Count 4.8 4.4-10.8 10^3/uL Red Blood Count 5.04 4.5-5.90 10^6/uL Hemoglobin 15.5 13.5-17.5 g/dL Hematocrit 44.2 41.0-53.0 % Mean Corpuscular Volume 87.6 80.0-100.0 fL Mean Corpuscular Hemoglobin 30.7 28.0-32.0 pg Mean Corpuscular Hemoglobin Concent 35.0 32.0-36.0 g/dL Red Cell Distribution Width 13.3 11.8-14.3 % Platelet Count 248 140-450 10^3/uL Mean Platelet Volume 8.1 6.9-10.8 fL Neutrophils (%) (Auto) 69.9 37.0-80.0 % Lymphocytes (%) (Auto) 22.9 10.0-50.0 % Monocytes (%) (Auto) 6.0 0.0-12.0 % Eosinophils (%) (Auto) 0.6 0.0-7.0 % Basophils (%) (Auto) 0.6 0.0-2.0 % Neutrophils # (Auto) 3.3 1.6-8.6 10 ^3/uL Lymphocytes # (Auto) 1.1 0.4-5.4 10 ^3/uL Monocytes # (Auto) 0.3 0-1.3 10 ^3/uL Eosinophils # (Auto) 0 0-0.8 10 ^3/uL Basophils # (Auto) 0 0-0.2 10 ^3/uL Nucleated Red Blood Cells 0.2 % D-Dimer, Quantitative < 0.19 0.0-0.49 mg/L FEU Sodium Level 137 136-145 mmol/L Potassium Level 4.2 3.5-5.1 mmol/L Chloride Level 105 98-107 mmol/L Carbon Dioxide Level 22 20-31 mmol/L Anion Gap 10 5-15 Blood Urea Nitrogen 17 9-23 mg/dL Creatinine 1.09 0.700-1.30 mg/dL Glomerular Filtration Rate Calc 82 >90 mL/min BUN/Creatinine Ratio 15.6 10.0-20.0 Serum Glucose 184 H 74-106 mg/dL Calcium Level 9.3 8.7-10.4 mg/dL SEPSIS Sepsis Screen Date sepsis recognized/suspect: Apr 25, 2025 Time Sepsis recognized/suspect: 1405 Recent Procedure: No On Antibiotic Therapy: No Respiratory Rate >20: No Heart Rate >90: No Temp<36 C (96.8 F) or >38.3 C: No SBP <90 or MAP <65 mmHG: No New Acute Mental Status Change: No Is the patient on CPAP, BIPAP,: No Physician Orders Chest Xray 1 View (04/25/25 10:50) Admit (04/25/25 15:06) Allergies (04/25/25 15:06) Code Status (04/25/25 15:06) Hydrocodone-Acet 5/325mg Tab ([place] 5/32 (04/25/25 15:15) Docusate Sodium Capsule (Colace Capsule) (04/25/25 15:15) Complete Blood Count (04/26/25 04:00) Comprehensive Metabolic Panel (04/26/25 04:00) Npo (Nothing By Mouth) Diet (04/25/25 Dinner) Echo 2d Mode Cardiac Dop (04/25/25 15:06) Condition: Serious (04/25/25 15:06) Acetaminophen Tablet (Tylenol Tablet) (04/25/25 15:15) Bedrest With Bathroom Privileg (04/25/25 15:06) Morphine Sulfate Injection (04/25/25 15:15) Sequential Compression Device (04/25/25 ) Nitroglycerin Sublingual (Ntrostat Subli (04/25/25 15:15) Morphine Sulfate Injection (04/25/25 15:15) Oxygen By Nasal Cannula (04/25/25 15:06) Stat Ekg For Chest Pain (04/25/25 15:06) Notify Of Changes From Base (04/25/25 15:06) Plate Take Out Worker For 24 Hours (04/25/25 15:06) Emergency Dysrhythmia Protocol (04/25/25 15:06) Rhythm Strips Once Every Shift (04/25/25 15:06) Vital Signs Date Time Temp Pulse Resp B/P (MAP) Pulse Ox O2 Delivery O2 Flow Rate FiO2 04/25/25 14:05 98.2 87 18 155/97 (116) 96 98.2 04/25/25 11:34 19 96 Room Air 04/25/25 11:34 98.1 90 19 97/73 (81) 96 98.1 04/25/25 10:14 97 04/25/25 10:05 97.8 100 20 148/106 95 97.8 Laboratory Tests Test 04/25/25 10:59 White Blood Count 4.8 10^3/uL (4.4-10.8) Medications Medications Dose Ordered Sig/Rebecca Route Start Time Stop Time Status Last Admin Dose Admin Oxycodone/ Acetaminophen 1 tab ONCE ONCE PO 04/25/25 11:00 04/25/25 11:01 DC 04/25/25 11:22 1 TAB Assessment/Plan Assessment/Plan #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 Luana Copeland, as hemato oncologist, workup still dint reveal specific coagulation dx. #Increased shortness of breath: Progressive for past 2 days, patient's SpO2 is within normal limits, D-dimer unremarkable, EKG reoperation disorder, echo, BNP to check, trend troponins. To rule out silent ACS. #Secondary hypercoagulable state secondary due to chronic warfarin: Continue as hospital protocol, denies any active bleeding, H&H stable. #High likelihood of DVT: 2 days of mild exertional shortness of breath and new left leg spasmodic pain , check electrolytes, ultrasound bilateral lower leg. #osteoarthritis and degenerative disc disease: Pain management, physical therapy in-hospital for safe discharge planning, patient is having pain and difficulty in walking. physical therapy eval. #Grade II obesity: BMI 38.5, weight loss counseling on lifestyle modification to continue. Patient on Ozempic continue outpatient davila. #HTN, Essential: Well-controlled on home medications, continue target blood pressure 130/80 or below #hyperlipidemia /dyslipidemia In diabetes: continue atorvastatin, check for CK given muscle pain. #Diabetes type II on insulin : As per patient compliant last HbA1c 6.4 in 09/29, was well-controlled. Continue SSI with insulin. 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 We will continue Protonix here. #Generalized anxiety disorder: On as needed Atarax, not on SSRI or SNRI, outpatient davila can consider starting on maintenance medications. We will avoid Habit-forming benzodiazepines. #Past Surgical History Significant for Thrombectomy, right lower leg vascular bypass surgery. lower back surgery with titanium implant [address] Mccarthy. #Structural heart disease and hypertensive heart disease: Concentric LVH. Left atrial enlargement. Aortic root enlargement. [id number] MR. Moderate TR. Given increased shortness of breath, check BNP, EKG and repeat echo. #Likely pain seeking behavior: asking for IV deluded specifically. check UDS. PUD prophylaxis: protonix 40mg IV daily to continue DVT prophylaxis: warfarin as per warfarin protocol to continue. Barriers to discharge: Medical diagnosis and management in progress. Patient lives with family. Independent And needs front wheel walker and cane support for movements ADL. PT and SW consult as needed. PCP: Dr. Harry Hunter Specialist Relevant To Admission: hematooncologist, Dr. Copeland, follows warfarin clinic. Case discussed with Dr. Meneses. Code Status: Full Code. Discussion for goals of care and care plan needed total 27 minutes bedside. Plan discussed with: Patient My Orders Orders - GARY COPELAND Procedure Category Date Status Time Admit ADMIT 04/25/25 Transmitted 15:06 Allergies [facility] 04/25/25 Transmitted 15:06 Code Status CODE 04/25/25 Transmitted 15:06 Hydrocodone-Acet PHA 04/25/25 Transmitted 5/325mg Tab ([place] 15:15 Docusate Sodium PHA 04/25/25 Transmitted Capsule (Colace 15:15 Complete Blood Count LAB 04/26/25 Verified 04:00 Comprehensive LAB 04/26/25 Verified Metabolic Panel 04:00 Npo (Nothing By DIET 04/25/25 Transmitted Mouth) Diet Dinner Echo 2d Mode Cardiac US 04/25/25 Transmitted DOP 15:06 Condition: Serious [facility] 04/25/25 Verified 15:06 Acetaminophen Tablet [facility] 04/25/25 Verified (Tylenol Tablet) 15:15 Bedrest With Bathroom [facility] 04/25/25 Verified Privileg 15:06 Morphine Sulfate [facility] 04/25/25 Verified Injection 15:15 Sequential [facility] 04/25/25 Verified Compression Device Nitroglycerin [facility] 04/25/25 Verified Sublingual (Ntrostat 15:15 Morphine Sulfate [facility] 04/25/25 Verified Injection 15:15 Oxygen By Nasal RT 04/25/25 Verified Cannula 15:06 Stat Ekg For Chest [facility] 04/25/25 Verified Pain 15:06 Notify Md Of Changes [facility] 04/25/25 Verified From Base 15:06 Plate Take Out Worker For [facility] 04/25/25 Verified 24 Hours 15:06 Emergency Dysrhythmia [facility] 04/25/25 Verified Protocol 15:06 Rhythm Strips Once [facility] 04/25/25 Verified Every Shift 15:06 Date of Service: Apr 25, 2025 Billing Provider: NICK ARVIZU MD Common Visit Codes: 58889-EUNGDPN INP/OBS CARE (HIGH) Secondary Visit Codes: 36362-[id number] CARE PLAN 30 MINUTES GARY COPELAND Apr 25, 2025 15:10
[2025-04-25] MEDS ORDERED: MORPHINE SULFATE INJ 2 MG/ml SYRG IV PRN ×2 (15:15)
[2025-04-25] MEDS ORDERED: HYDROcodone-ACET 5/325MG TAB PO PRN (15:15)
[2025-04-25] MEDS ORDERED: NITROGLYCERIN 0.4 MG SL TAB SL PRN (15:15)
[2025-04-25] MEDS ORDERED: DOCUSATE SOD 100 MG CAP PO PRN (15:15)
[2025-04-25] MEDS ORDERED: ACETAMINOPHEN 325 MG TAB PO PRN (15:15)
[2025-04-25 16:50] VITALS: BP 108/83; PULSE 86; RESP 18; TEMP 98.4; O2SAT 97
[2025-04-25 17:45] LABS: Alanine Aminotransferase 33 U/L (7-40); Albumin 4.5 g/dL (3.2-4.8); Alkaline Phosphatase 78 U/L (46-116); Bilirubin, Total 0.5 mg/dL (0.2-1.0); Total Protein 7.3 g/dL (5.7-8.2)
[2025-04-25 17:52] LABS: Bilirubin, Direct < 0.1 mg/dL (<0.3)
[2025-04-25] MEDS ORDERED: MECLIZINE HCL 25 MG TAB PO PRN (18:15)
[2025-04-25] MEDS ORDERED: HYDROcodone-ACET 10/325MG TAB PO PRN (18:15)
[2025-04-25] MEDS ORDERED: hydrOXYzine HCL 10 MG TAB PO PRN (18:15)
--- NOTE | 2025-04-25 18:37 | DVHDSRES ---
Discharge Summary Date of Admission Resident Creating Document: GARY COPELAND RESIDENT Apr 25, 2025 at 15:06 Date of Discharge: Apr 25, 2025 Labs/Diagnostic Data: Laboratory Results Test 04/25/25 18:03 04/25/25 17:20 04/25/25 10:59 White Blood Count 4.8 10^3/uL (4.4-10.8) Red Blood Count 5.04 10^6/uL (4.5-5.90) Hemoglobin 15.5 g/dL (13.5-17.5) Hematocrit 44.2 % (41.0-53.0) Mean Corpuscular Volume 87.6 fL (80.0-100.0) Mean Corpuscular Hemoglobin 30.7 pg (28.0-32.0) Mean Corpuscular Hemoglobin Concent 35.0 g/dL (32.0-36.0) Red Cell Distribution Width 13.3 % (11.8-14.3) Platelet Count 248 10^3/uL (140-450) Mean Platelet Volume 8.1 fL (6.9-10.8) Neutrophils (%) (Auto) 69.9 % (37.0-80.0) Lymphocytes (%) (Auto) 22.9 % (10.0-50.0) Monocytes (%) (Auto) 6.0 % (0.0-12.0) Eosinophils (%) (Auto) 0.6 % (0.0-7.0) Basophils (%) (Auto) 0.6 % (0.0-2.0) Neutrophils # (Auto) 3.3 10 ^3/uL (1.6-8.6) Lymphocytes # (Auto) 1.1 10 ^3/uL (0.4-5.4) Monocytes # (Auto) 0.3 10 ^3/uL (0-1.3) Eosinophils # (Auto) 0 10 ^3/uL (0-0.8) Basophils # (Auto) 0 10 ^3/uL (0-0.2) Nucleated Red Blood Cells 0.2 % D-Dimer, Quantitative < 0.19 mg/L FEU (0.0-0.49) Sodium Level 137 mmol/L (136-145) Potassium Level 4.2 mmol/L (3.5-5.1) Chloride Level 105 mmol/L (98-107) Carbon Dioxide Level 22 mmol/L (20-31) Anion Gap 10 (5-15) Blood Urea Nitrogen 17 mg/dL (9-23) Creatinine 1.09 mg/dL (0.700-1.30) Glomerular Filtration Rate Calc 82 mL/min (>90) BUN/Creatinine Ratio 15.6 (10.0-20.0) Serum Glucose 184 mg/dL (74-106) Calcium Level 9.3 mg/dL (8.7-10.4) Total Bilirubin 0.5 mg/dL (0.2-1.0) Direct Bilirubin < 0.1 mg/dL (<0.3) Aspartate Amino Transferase (AST) 33 U/L (13-40) Alanine Aminotransferase (ALT) 33 U/L (7-40) Alkaline Phosphatase 78 U/L (46-116) Total Protein 7.3 g/dL (5.7-8.2) Albumin 4.5 g/dL (3.2-4.8) Other Laboratory Tests 04/25/25 10:59 Brief Hx & Hospital Course: Pancho Jasmine, A 54-year-old male with multiple comorbidities including Grade II obesity, HTN, hyperlipidemia, Diabetes type II on insulin, 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 Patient was adamant on getting Dilaudid, escalated to agitation despite counseling by the RN and Hospitalist team. Patient left AMA signing the form and understanding the risk that includes worsening DVT and PE which could be fatal. Workup and treatment was pending. 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 Past Surgical History: Thrombectomy, right lower leg vascular bypass surgery. lower back surgery with titanium implant [address] Mccarthy. Family History: Hypertension , likely noncontributory to the admission, denies any familial hypercoagulable disorder. Social history: Smoke: No. Alcohol: none. Drugs: None. cannabinoids, and previous ETOH. Lives: with Family. LEFT AMA BEFORE FULL WORK UP AND TREATMENT. PAPER SIGNED AND COSIGNED. Discharge planning and counseling needed 19 minutes bedside. Operations or Procedures [id number] [facility] [id number] Ph: [phone] DIAGNOSTIC IMAGING Diagnostic Imaging Report : [id number] Signed PATIENT: PANCHO JASMINE ACCT: [id number] UNIT: [id number] : 1970 LOC: ER ROOM / BED: / AGE / SEX: 54 / M ADM STATUS: REG ER SERVICE 1050 ORDERING PHYSICIAN: PB GARCIA RESIDENT PROCEDURE(s): CXR1 - CHEST XRAY 1 VIEW REASON: shortness of breath ORDER NUMBER(s): [id number], ACCESSION NUMBER(s): [id number] CHEST RADIOGRAPH Indication: shortness of breath Technique: Single frontal view of the chest was obtained COMPARISON: XY CHEST PORTABLE on DOS: 03/09/25, XY CHEST PORTABLE on DOS: 01/05/25, XY CHEST PORTABLE on DOS: 09/20/24, XY CHEST XRAY 1 VIEW on DOS: 08/13/24, XY CHEST TWO VIEWS ROUTINE on DOS: 08/07/23 FINDINGS: Lines and Tubes: None Lungs: Increased interstital prominence. This may represent pulmonary vascular congestion and/or viral pneumonia. Pleura: No effusion.No pneumothorax. Cardiomediastinal contours: Unremarkable Bones: Unremarkable IMPRESSION: Increased interstital prominence. This may represent pulmonary vascular congestion and/or viral pneumonia. ATED BY: MIGUEL GAITAN MD DICTATED DATE/TIME: 04/25/25 1128 SIGNED BY: MIGUEL GAITAN MD SIGNED DATE/TIME: 04/25/25 112 CC: Condition at Discharge: Guarded Final Diagnosis/Problems List #recurrent DVTs on warfarin s/p IVC filter #Increased shortness of breath-yet To rule out silent ACS. #Secondary hypercoagulable state secondary due to chronic warfarin #High likelihood of DVT #osteoarthritis and degenerative disc disease #Grade II obesity #HTN, Essential #hyperlipidemia /dyslipidemia In diabetes #Diabetes type II on insulin #recurrent DVTs on warfarin s/p IVC filter #BPPV vertigo, History of recurrent Previous attacks #GERD on PPI #Generalized anxiety disorder #Past Surgical History Significant for Thrombectomy, right lower leg vascular bypass surgery. lower back surgery with titanium implant [address] Mccarthy. #Structural heart disease and hypertensive heart disease: Concentric LVH. Left atrial enlargement. Aortic root enlargement. Ddcy-kj-osmozctc MR. Moderate TR. #Likely pain seeking behavior Discharge Disposition: AMA Discharge Instruct/Medications Diet: Cardiac 2g Na,low cholest Scheduled Amlodipine Besylate (Amlodipine Besylate), 1 TAB PO DAILY, (Reported) Amoxicillin & Pot Clavulanate (Augmentin Tablet), 875 MG PO BID Hydroxyzine HCl (Hydroxyzine Hydrochloride), 1 TAB PO BID, (Reported) Insulin Glargine (Lantus), 38 UNIT SC BID, (Reported) Losartan Potassium (Losartan Potassium), 1 TAB PO DAILY, (Reported) Metoprolol Succinate (Metoprolol Succinate Er), 1 TAB PO DAILY, (Reported) Warfarin Sodium (Warfarin Sodium), 1 TAB PO DAILY, (Reported) Warfarin Sodium (Warfarin Sodium), 10 MG PO DAILY Discharge Statement: "Patient was advised to return to the ER or call 911 if any headaches, dizziness, shortness of breath, chest pain, abdominal pain, bleeding, fevers, or worsening of medical condition. Patient was counseled about treatment plan, medications, possible side effects, patientverbalized understanding. All questions were answered to the best of my ability. This discharge took greater then 30 minutes in planning, reviewing documentation, counseling the patient, and discussing with other team members." ASSESSMENT ASSESSMENT Assessment GARY COPELAND RESIDENT Apr 25, 2025 18:37
[2025-04-25 18:39] LABS: INR 2.02 (0.9-1.15); Partial Thromboplastin Time 41.6 SEC (24.5-34.5); Prothrombin Time 20.0 sec (9.3-11.8)
[2025-04-25 19:03] LABS: COVID19 ANTIGEN SOFIA FIA NEGATIVE (NEGATIVE)
[2025-04-25] MEDS ORDERED: ATORVASTATIN 20 MG TAB PO SCH (22:00)
[2025-04-26] MEDS ORDERED: LIDOCAINE 5% TOPICAL PATCH TOP SCH (10:00)
== END 2025-04-25 18:10 | disposition left against medical advice (07) | DRG 198 ==
LOC: ER 10:02 → OVERFLOW 15:06
PROVIDERS: ADMIT Student in an Organized Health Care Education/Training Program; ATTEND Internal Medicine
DX: I24.9 Acute ischemic heart disease, unspecified (principal); I82.502 Chronic embolism and thrombosis of unspecified deep veins of left lower extremity; E11.9 Type 2 diabetes mellitus without complications; E66.812 Obesity, class 2; D68.69 Other thrombophilia; E78.5 Hyperlipidemia, unspecified; T45.515A Adverse effect of anticoagulants, initial encounter; I10 Essential (primary) hypertension; Z95.828 Presence of other vascular implants and grafts; G89.29 Other chronic pain; F41.9 Anxiety disorder, unspecified; Z68.38 Body mass index [BMI] 38.0-38.9, adult; Z53.29 Procedure and treatment not carried out because of patient's decision for other reasons; Z20.822 Contact with and (suspected) exposure to COVID-19; K21.9 Gastro-esophageal reflux disease without esophagitis; Z79.4 Long term (current) use of insulin; Z65.8 Other specified problems related to psychosocial circumstances; H81.10 Benign paroxysmal vertigo, unspecified ear
CPT/HCPCS: 36415; 71045; 80048; 80076; 82550; 83036; 83880; 84484; 85025; 85379; 85610; 85730; 87426; 87804; 93005; G0378